=== PATIENT | male | born 1975 | race Hispanic/Latino ===

== ENCOUNTER 2025-01-24 18:19 | Inpatient (IN) | payer SELFPAY ==
[~2025-01-24] VITALS: Ht 157.5 cm; Wt 55.8 kg
--- NOTE | 2025-01-24 19:28 | NUR ---
ASSUMED PT CARE
--- NOTE | 2025-01-24 19:58 | ERN ---
General Chief Complaint: Weakness Stated Complaint: WEAKNESS Time Seen by MD: 19:11 Source: patient, family History of Present Illness Initial Comments Patient is a 49-year-old male coming in complaining of generalized body weakness and anorexia fever and chills. Per family member and patient he had an appendectomy three weeks ago and since then he has been having "complications". Allergies: Coded Allergies: No Known Drug Allergies (Unverified Allergy, Unknown, 01/24/25) Past Medical History Past Medical History: No Pertinent History Past Surgical History: Appendectomy, Cholecystectomy ROS Dictation CONSTITUTIONAL: chills, fever, weakness, no diaphoresis, malaise. HEAD/FACE: No signs of trauma. EENT: No eye pain, no blurred vision, no tearing, no double vision, no ear pain, no ear discharge, no nose pain, no nasal congestion, no throat pain, no throat swelling, no mouth pain. RESPIRATORY: No cough, no orthopnea, no SOB, no stridor, no wheezing. CARDIOVASCULAR: No chest pain, no edema, no palpitations, no syncope. GASTROINTESTINAL/ABDOMINAL: No abdominal pain, no constipation, no diarrhea, no nausea, no vomiting. GENITOURINARY: No abnormal discharge, no dysuria, no frequent urination, no hematuria. No complaints of pain in the genitals. MUSCULOSKELETAL: No back pain, no gout, no joint pain, no joint swelling, no muscle pain, no muscle stiffness, no neck pain. INTEGUMENTARY: No change in color, no change in hair/nails, no dryness, no lesion, no lumps, no rash. NEUROLOGICAL/PSYCH: No anxiety, not depressed, no emotional problem, no headache, no numbness, no pre-existing deficit, no history of seizures, no tremors, no weakness. HEMATOLOGIC/LYMPHATIC: Not anemic, no history of blood clots, no apparent bleeding, no bruising, glands not swollen. All Systems Negative, Except as Noted. Physical Exam Physical Exam Dictation VITAL SIGNS: Reviewed. GENERAL APPEARANCE: Alert, oriented x3, no acute distress. HEAD AND FACE: Non-traumatic. EYES: PERRL, pink conjunctivas, eyelid no trauma, anterior chamber clear. EARS: Pinnas intact and no signs of trauma or erythema. Ear canals clear and no discharge. TMs no erythema. NOSE: No discharge, no bleeding. OROPHARYNX: Mouth normal, teeth no caries, tongue pink. Pharynx clear, no er ythema. Tonsils no exudates, no abscesses noted. Mucous membrane moist. NECK: Supple, non-tender, no thyromegaly, no masses, no JVD, no bruits. BREAST: Deferred. CHEST: No tenderness, no crepitus, no paradoxical movement, no retractions. LUNGS: Clear, well-ventilated, symmetric, no rales, no wheezing, no rhonchi, no stridor, good breath sounds bilaterally. HEART: Regular rate, regular rhythm, no murmur, no gallops. VASCULAR: No peripheral edema. ABDOMEN: Soft, positive bowel sounds, nondistended, no guarding, nontender, no rebound, no masses no hepatomegaly, no splenomegaly, no Dial's sign, no hernias. RECTAL: Deferred. GENITAL: Deferred. NEUROLOGICAL: Normal speech, gross motor function intact, gross sensory function intact. MUSCULOSKELETAL: Neck nontender, full range of motion, back nontender, full range of motion. EXTREMITIES: Nontender, full range of motion. SKIN: Color pink, dry, no turgor, no rash, no lacerations, no abrasions, no contusions. LYMPHATICS: Deferred. Results Laboratory and Microbiology Lab and Micro Result Laboratory Tests Test 01/24/25 19:52 01/24/25 20:10 01/24/25 21:40 White Blood Count 2.9 K/uL (4.8-10.8) L Red Blood Count 2.71 MIL/uL (4.50-6.20) L Hemoglobin 8.1 g/dL (14.0-18.0) L Hematocrit 24.1 % (42-54) L Mean Corpuscular Volume 88.9 fL (79-99) Mean Corpuscular Hemoglobin 29.9 pg (27.0-33.0) Mean Corpuscular Hemoglobin Concent 33.6 g/dL (32.0-36.0) Red Cell Distribution Width 14.5 % (11.0-15.5) Platelet Count 156 K/uL (130-400) Mean Platelet Volume 11.7 fL (7.5-10.5) H Immature Granulocyte % (Auto) 1.8 % (0-1) H Neutrophils (%) (Auto) 74.3 % (40.0-77.0) Lymphocytes (%) (Auto) 16.5 % (21.0-51.0) L Monocytes (%) (Auto) 7.0 % (3.0-13.0) Eosinophils (%) (Auto) 0.0 % (0.0-8.0) Basophils (%) (Auto) 0.4 % (0.0-5.0) Neutrophils # (Auto) 2.1 K/uL (1.8-7.7) Lymphocytes # (Auto) 0.5 K/uL (1.0-4.8) L Monocytes # (Auto) 0.2 K/uL (0.1-1.0) Eosinophils # (Auto) 0.00 K/uL (0.00-0.70) Basophils # (Auto) 0.01 K/uL (0.00-0.20) Absolute Immature Granulocyte (auto 0.05 K/uL (0-1) Segmented Neutrophils % 81 % (40-70) H Band Neutrophils % 8 % (0-2) H Lymphocytes % (Manual) 8 % (22-44) L Monocytes % (Manual) 3 % (2-9) Nucleated Red Blood Cells 0.0 % (0.0-0.19) Differential Comment MANUAL DIFFERENTIAL White Cell Morphology Comment CONSISTENT W/DIFF Platelet Morphology Comment ADEQUATE Red Blood Cell Morphology ANISO 1+ Sodium Level 132 mmol/L (136-145) L Potassium Level 4.7 mmol/L (3.5-5.1) Chloride Level 101 mmol/L (101-111) Carbon Dioxide Level 23 mmol/L (21-32) Blood Urea Nitrogen 46 mg/dL (7-18) H Creatinine 1.0 mg/dL (0.5-1.3) Glomerular Filtration Rate Calc 92 mL/min (>90) Random Glucose 86 mg/dL (70-105) Lactic Acid Level 1.5 mmol/L (0.8-2.5) Total Calcium 7.4 mg/dL (8.5-10.1) L Total Creatine Kinase 82 U/L (21-232) Troponin I High Sensitivity 3121 ng/L (4-75) *H 3099 ng/L (4-75) *H B-Type Natriuretic Peptide 61 pg/mL (0-100) Group A Streptococcus Rapid negative (NEGATIVE) Influenza Type A Antigen Negative For Type A Influenza Type B Antigen Negative For Type B SARS-CoV-2, RNA, NAAT NEGATIVE SARS CoV-2 Labs Reviewed?: Yes EKG/XRAY/US/CT/MRI EKG Comment 01/24/2025 time 9:40 p.m. Ventricular rate 66 Sinus rhythm DE [address] wave elevation or depression CT Scan Comment [address] [place] [address] IMAGING REPORT Signed PATIENT: ABEL LEVY MR#: [id number] : 1975 SEX: M AGE: 49 LOCATION: [facility] ORDER 45 STATUS: [facility] REPORT#: [id number] SERVICE 44 REASON: abd pain , gi bleed ORDERING PHYSICIAN: GORAN HERNANDEZ MD PROCEDURE: ABD PEL W - CT ABDOMEN/PELVIS W/CONTRAST EXAM: CT Abdomen and Pelvis with IV contrast CLINICAL HISTORY: Abdominal pain. GI bleed. TECHNIQUE: Thin collimated axial CT images of the abdomen and pelvis were obtained, with sagittal and coronal reformatted images also submitted. A CT scan is done according to ALARA (As Low As Reasonably Achievable). CONTRAST: Omnipaque 350 COMPARISON: None. FINDINGS: Diffuse groundglass opacities in the bilateral lung bases. Mild peripancreatic fatty stranding. A small amount of fluid with mild fat stranding in the left upper quadrant at the inferior aspect of the spleen. No focal abnormality within the liver, spleen, adrenals, or kidneys. The gallbladder is not visualized and is likely surgically removed. There is no obvious bowel wall thickening. Bowel loops are normal in caliber without evidence of obstruction or ileus. The appendix is normal. There is no abnormality within the urinary bladder. Unremarkable reproductive organs. Abdominal and pelvic vessels are patent. No lymphadenopathy. There is no acute osseous abnormality. Mild lumbar spondylosis. IMPRESSIONS: Mild peripancreatic fat stranding. A small amount of fluid with mild fat stranding in the left upper quadrant at the inferior aspect of the spleen. The features concerning for acute interstitial pancreatitis. Recommend serum amylase and lipase evaluation. No other significant abnormality is visualized in the abdomen and pelvis. Groundglass opacities in the bilateral lung bases. /[place] DICTATED BY: BARRIE HERNANDEZ Jr., MD DATE: 01/25/25103 ELECTRONICALLY SIGNED BY: BARRIE HERNANDEZ Jr., MD DATE: 01/25/25103 [place] [address] [place] [address] IMAGING REPORT Signed PATIENT: ABEL LEVY MR#: [id number] : 1975 SEX: M AGE: 49 LOCATION: [facility] ORDER 10 STATUS: REG REPORT#: [id number] SERVICE 09 REASON: sob ORDERING PHYSICIAN: GORAN HERNANDEZ MD PROCEDURE: CHEST WO - CT CHEST W/O CONTRAST EXAM: CT Chest without IV contrast CLINICAL HISTORY: Shortness of breath. TECHNIQUE: Thin-section axial CT through the thorax without intravenous contrast. Coronal, sagittal, and MIP reformation were generated on the same workstation. CT scan done according to ALARA (As Low as Reasonably Achievable). CONTRAST USED: None. COMPARISON: None provided. FINDINGS: Severe diffuse airspace disease, air bronchogram, and smooth interstitial thickening bilaterally, compatible with pneumonia and pulmonary edema. No pleural effusions. No pneumothorax. No pericardial effusion. The heart size is within normal limits. No axillary, supraclavicular, or mediastinal lymphadenopathy. No focal thyroid abnormality. Limited views of the upper abdomen demonstrate no abnormality. No acute or suspicious osseous abnormality. IMPRESSION: Severe diffuse airspace disease, air bronchogram, and smooth interstitial thickening bilaterally, compatible with pneumonia and pulmonary edema. There is a possibility of atypical viral pneumonia. Clinical correlation and further evaluation, and follow-up are suggested. /[place] DICTATED BY: BARRIE HERNANDEZ Jr., MD DATE: 01/25/25115 ELECTRONICALLY SIGNED BY: BARRIE HERNANDEZ Jr., MD DATE: 01/25/25115 MDM MDM: Differential diagnosis: STEMI, NSTEMI, pancreatitis,pneumonia Rationale: Tests considered and ordered secondary to shared decision making include: Previous outside records reviewed: Old ER visits. Risk of complication and/or morbidity or mortality of patient management: None Medications-Per medication reconciliation Need for hospitalization: Patient does meet criteria for hospitalization. Need for emergency major/minor surgery: No There are no social concerns with this patient. Prescription drug management Prescriptions will include symptomatic care Patient's prior external medical records from other ER visits were reviewed by me as indicated. Prior testing and results from previous visits were reviewed. Prior tests were taken into account with medical decision making and resource utilization, independent historian/historians were used to obtain complete medical history. I independently interpreted the test that were performed, results were reviewed by me and considered findings on radiology if ordered. Medical management and examination interpretation discussions were had by me with other qualified healthcare professionals as indicated for the patient's care. Patient will be admitted under the care of hospitalist group ED Course Orders Procedure Category Date Status Time Cbc With Differential LAB 01/24/25 Complete 19:16 Blood Cult GÉNESIS 01/24/25 In Process 19:16 Urinalysis Profile LAB 01/24/25 Logged 19:16 Culture Urine GÉNESIS 01/24/25 Logged 19:16 0.9%Nacl 1000ml (Ns PHA 01/24/25 Complete 1000ml) 19:30 Creatine Kinase, Total LAB 01/24/25 Complete 19:16 Troponin I High LAB 01/24/25 Complete Sensitivity 19:16 Lactic Acid LAB 01/24/25 Complete 19:16 Basic Metabolic Panel LAB 01/24/25 Complete 19:16 Covid Rna Naat LAB 01/24/25 Complete 19:16 Influenza Type A & B, LAB 01/24/25 Complete Rapid 19:16 Rapid (Group A Strep) LAB 01/24/25 Complete 20:16 Manual Differential LAB 01/24/25 Complete 19:52 Troponin I High LAB 01/24/25 Complete Sensitivity 21:31 Aspirin 325mg Ec Tab PHA 01/24/25 Complete (Aspirin 325mg Ec T 22:00 Occult Blood Stool LAB 01/24/25 Logged Single Only 21:31 12 Lead Ekg Tracing- EKG 01/24/25 Logged Technical 21:31 B-Type Natriuretic LAB 01/24/25 Complete Peptide 21:32 Ct Abdomen/Pelvis CT 01/24/25 Resulted W/Contrast 21:45 Iohexol (Omnipaque) PHA 01/24/25 Complete 22:42 Ct Chest W/O Contrast CT 01/24/25 Resulted 23:10 Lipase LAB 01/25/25 Logged 00:13 Initiate Heparin THANG 01/25/25 In Process Treatment Pro 00:17 Cbc With Differential LAB 01/26/25 Verified 04:00 Cbc With Differential LAB 01/29/25 Verified 04:00 Cbc With Differential LAB 02/01/25 Verified 04:00 Heparin 5,000 Unit PHA 01/25/25 In Process Vial (Heparin 5,000 U 01:30 Heparin 25,000 PHA 01/25/25 In Process Units/250ml D5w 01:30 Heparin Protocol CPOE 01/25/25 Transmitted Monitoring 00:17 Partial LAB 01/25/25 Logged Thromboplastin Time 00:19 Ceftriaxone 1g Vial PHA 01/25/25 In Process (Rocephine 1g Inj) 00:30 Azithromycin 500mg+Ns PHA 01/25/25 In Process 250ml (Azithromyci 00:30 Current Medications Medications (Trade) Dose Ordered Sig/Braulio Route PRN Reason Start Time Stop Time Status Last Admin Dose Admin Aspirin (Aspirin 325mg Ec Tab) 325 mg ONCE ONCE PO 01/24/25 22:00 01/24/25 22:01 DC 01/24/25 22:02 Azithromycin 250 ml @ 250 mls/hr Q24H IVPB 01/25/25 00:30 02/04/25 00:29 Ceftriaxone Sodium (ROCEphine 1G INJ) 1 gm ONCE ONCE IVPB 01/25/25 00:30 01/25/25 00:31 Heparin Sodium (Porcine) (HEParin 5,000 UNIT VIAL) *calculation based on ACTUAL B... AD PRN IV HEPARIN PROTOCOL 01/25/25 01:30 02/24/25 01:29 Heparin Sodium/ Dextrose 250 ml @ 0 mls/hr Q6H IV 01/25/25 01:30 02/24/25 01:29 Iohexol (Omnipaque) 35,000 mg STK-MED ONCE IV 01/24/25 22:42 01/24/25 22:42 DC Sodium Chloride 1,632 ml @ 544 mls/hr ONCE ONCE IV 01/24/25 19:30 01/24/25 22:29 DC 01/24/25 20:01 Vital Signs Date Time Temp Pulse Resp B/P (MAP) Pulse Ox O2 Delivery O2 Flow Rate FiO2 01/24/25 21:21 98.8 64 18 94/62 99 Room Air* 0 21 01/24/25 18:21 97.9 85 18 81/56 99 Room Air 2.0 DX & DISP Disposition: Inpatient Decision to Admit Time: 00:17 Departure Impression: Primary Impression: NSTEMI (non-ST elevated myocardial infarction) Additional Impressions: Failure to thrive, Pancreatitis, Pneumonia Condition: Stable Referrals: SELF,REFERRAL (PCP) GORAN HERNANDEZ MD Jan 24, 2025 19:58
[2025-01-24] MEDS: 0.9%NACL 1000ML 1,632 ML IV ONE (20:01)
[2025-01-24 20:34] LABS: IMMATURE GRANULOCYTE ABSOLUTE 0.05 K/uL (0-1); NUCLEATED RED BLOOD CELLS 0.0 % (0.0-0.19); PLATELET COUNT (AUTO) 156 K/uL (130-400); RED BLOOD CELL COUNT(AUTO) 2.71 MIL/uL (4.50-6.20); RED CELL DISTRIBUTION WIDTH 14.5 % (11.0-15.5); WHITE BLOOD COUNT (AUTO) 2.9 K/uL (4.8-10.8)
[2025-01-24 20:35] LABS: SARS-CoV-2, RNA, NAAT NEGATIVE SARS CoV-2 (NEGATIVE)
[2025-01-24 20:40] LABS: INFLUENZA TYPE A Negative For Type A (NEGATIVE); INFLUENZA TYPE B Negative For Type B (NEGATIVE)
[2025-01-24 20:59] LABS: CREATININE 1.0 mg/dL (0.5-1.3); GLOMERULAR FILTR. RATE CALC 92.0 mL/min (>90); GLUCOSE,RANDOM 86.0 mg/dL (70-105); SODIUM SERUM 132.0 mmol/L (136-145); UREA NITROGEN, BLOOD 46.0 mg/dL (7-18)
[2025-01-24 21:11] LABS: CREATINE KINASE, TOTAL 82.0 U/L (21-232)
[2025-01-24 21:43] LABS: BAND NEUTROPHILS % (MANUAL) 8 % (0-2); LYMPHOCYTES % (MANUAL) 8 % (22-44); MAN.DIFF COMMENT-IMPRESSION MANUAL DIFFERENTIAL; MONOCYTES % (MANUAL) 3 % (2-9); PLATELET MORPHOLOGY COMMENT ADEQUATE; SEGMENTED NEUTROPHILS % 81 % (40-70); WBC MORPHOLOGY CONSISTENT W/DIFF
[2025-01-24] MEDS: ASPIRIN 325MG EC TAB PO ONE (22:02)
[2025-01-24] MEDS ORDERED: IOHEXOL 350 MG/ML 100ML INFUS..BTL IV ONE (22:42)
[2025-01-25] VITALS (15 sets, daily range): BP systolic 87–112; BP diastolic 52–63; PULSE 59–72; RESP 16–28; TEMP 97.3–98.5; O2SAT 87–95
--- NOTE | 2025-01-25 | HMCIMG ---
EXAM: CT Abdomen and Pelvis with IV contrast CLINICAL HISTORY: Abdominal pain. GI bleed. TECHNIQUE: Thin collimated axial CT images of the abdomen and pelvis were obtained, with sagittal and coronal reformatted images also submitted. A CT scan is done according to ALARA (As Low As Reasonably Achievable). CONTRAST: Omnipaque 350 COMPARISON: None. FINDINGS: Diffuse groundglass opacities in the bilateral lung bases. Mild peripancreatic fatty stranding. A small amount of fluid with mild fat stranding in the left upper quadrant at the inferior aspect of the spleen. No focal abnormality within the liver, spleen, adrenals, or kidneys. The gallbladder is not visualized and is likely surgically removed. There is no obvious bowel wall thickening. Bowel loops are normal in caliber without evidence of obstruction or ileus. The appendix is normal. There is no abnormality within the urinary bladder. Unremarkable reproductive organs. Abdominal and pelvic vessels are patent. No lymphadenopathy. There is no acute osseous abnormality. Mild lumbar spondylosis. IMPRESSIONS: Mild peripancreatic fat stranding. A small amount of fluid with mild fat stranding in the left upper quadrant at the inferior aspect of the spleen. The features concerning for acute interstitial pancreatitis. Recommend serum amylase and lipase evaluation. No other significant abnormality is visualized in the abdomen and pelvis. Groundglass opacities in the bilateral lung bases. /[place]aura
--- NOTE | 2025-01-25 00:17 | HMCIMG ---
EXAM: CT Chest without IV contrast CLINICAL HISTORY: Shortness of breath. TECHNIQUE: Thin-section axial CT through the thorax without intravenous contrast. Coronal, sagittal, and MIP reformation were generated on the same workstation. CT scan done according to ALARA (As Low as Reasonably Achievable). CONTRAST USED: None. COMPARISON: None provided. FINDINGS: Severe diffuse airspace disease, air bronchogram, and smooth interstitial thickening bilaterally, compatible with pneumonia and pulmonary edema. No pleural effusions. No pneumothorax. No pericardial effusion. The heart size is within normal limits. No axillary, supraclavicular, or mediastinal lymphadenopathy. No focal thyroid abnormality. Limited views of the upper abdomen demonstrate no abnormality. No acute or suspicious osseous abnormality. IMPRESSION: Severe diffuse airspace disease, air bronchogram, and smooth interstitial thickening bilaterally, compatible with pneumonia and pulmonary edema. There is a possibility of atypical viral pneumonia. Clinical correlation and further evaluation, and follow-up are suggested. /[place]
[2025-01-25] MEDS: AZITHROMYCIN 500MG+NS 250ML 250 ML IVPB SCH (00:32)
[2025-01-25 00:55] LABS: APPEARANCE,URINE CLEAR (CLEAR); GLUCOSE, URINE (UA) NEGATIVE (NEGATIVE); LEUKOCYTE ESTERASE ,URINE NEGATIVE Leu/uL (NEGATIVE); NITRATE,URINE NEGATIVE (NEGATIVE); OCCULT BLOOD,URINE SMALL (NEGATIVE)
[2025-01-25 00:56] LABS: ADD UA MICROSCOPIC YES
--- NOTE | 2025-01-25 02:31 | HP ---
[facility] HISTORY AND PHYSICAL Date of Service: Jan 25, 2025 Time of Service: 02:31 Attending/supervising physicians: Dr. Bowie and Dr. Wick HISTORY OF PRESENT ILLNESS: Mr Bhardwaj is a 49-year-old male not pertinent history who is presented with [facility] [place] of with anorexia, fever, chills, generalized body weakness. The patient had an appendectomy three weeks ago and since then he reports he has been having complications. VS: HR 85 bpm, RR 18 bpm, BP 81/56, 99% RA, 97.9 F. Labs: Chemistry: WBC 2.9, RBC 2.71, Hgb 8.1, Hct 24.1, MPV 11.7, Urine: Specific Madison 1.038, Protein 10, Occult Blood Small, UA: Negative Nitrate, Negative Leukocyte Est, UA: RBC 6- 10, WBC 2-5, Coagulation: APTT 40.8, Chest CT: Severe diffuse airspace disease, air bronchogram, and smooth interstitial thickening bilaterally, compatible with pneumonia and pulmonary edema. There is a possibility of atypical viral pneumonia. Clinical correlation and further evaluation, and follow-up are suggested. Abdomen/Pelvis CT: Mild peripancreatic fat stranding. A small amount of fluid with mild fat stranding in the left upper quadrant at the inferior aspect of the spleen. The features concerning for acute interstitial pancreatitis. Recommend serum amylase and lipase evaluation. No other significant abnormality is visualized in the abdomen and pelvis. Groundglass opacities in the bilateral lung bases. EKG: SR, heart rate 66 bpm. In ED the patient received NS 30 mL/kilos, [id number] mg, Rocephin1 g, and was started on heparin drip. ED provider request patient be admitted with the diagnosis of NSTEMI, failure to thrive, pancreatitis, and pneumonia. I assessed the patient at bedside in room number ED 10. Son was at bedside. The patient appeared chronically ill, weak, comfortable, breathing was even, unlabored, in no distress. I informed the son and patient of labs, diagnostics, and plan of care. He verbalized understanding and are in agreement with the plan. Plan and assessment are listed below. REVIEW OF SYSTEMS 12-point ROS reviewed with the patient. All pertinent positives mentioned above. Otherwise negative, noncontributory, non-pertinent. PAST MEDICAL HISTORY: As mentioned above PAST SURGICAL HISTORY: Appendectomy,cholecystectomy PAST SOCIAL HISTORY: Patient denies alcohol, tobacco, illicit drug use. FAMILY HISTORY: Noncontributory Coded Allergies: No Known Drug Allergies (Unverified Allergy, Unknown, 01/24/25) PHYSICAL EXAM GENERAL APPEARANCE: The patient is chronically ill, weak, awake, alert, and oriented, in no acute cardiopulmonary distress. NEUROLOGICAL: Cranial nerves II-XII grossly intact. Motor is 5/5 in bilateral upper and lower extremities proximal to distal. No sensory deficits. HEENT: Face is symmetric. Pupils are equal and reactive. Extraocular movements are intact. NECK: Supple. No JVD. No thyromegaly. No submental, submandibular, pre- /postauricular, occipital or supraclavicular lymphadenopathy. CHEST: Normal chest expansion. No Telemetry. LUNGS: Absence of any rales, rhonchi or any wheezing. CARDIOVASCULAR: Regular. S1 and S2 normal. No appreciable rubs, murmurs or gallops. ABDOMEN: Soft, nontender, and nondistended. There is no rebound, voluntary guarding, or rigidity. : Deferred. No [place]. EXTREMITIES: Non-edematous and not cyanotic. No clubbing. Good capillary refill. SKIN: No skin breakdown. Vital Sign (Last 24 Hours) 01/24/25 21:21 Temp 98.8 Pulse 64 Resp 18 B/P (MAP) 94/62 Pulse Ox 99 O2 Delivery Room Air* O2 Flow Rate 0 FiO2 21 LABS: Laboratory: Test 01/25/25 00:48 01/25/25 00:25 01/24/25 21:40 01/24/25 20:10 Range/Units Urine Color YELLOW YELLOW Urine Appearance CLEAR CLEAR Urine pH 6.0 5.0-8.0 Urine Specific Madison 1.038 H 1.001-1.031 Urine Protein 10 H NEGATIVE mg/dL Urine Glucose (UA) NEGATIVE NEGATIVE mg/dL Urine Ketones NEGATIVE NEGATIVE mg/dL Urine Occult Blood SMALL H NEGATIVE Urine Nitrate NEGATIVE NEGATIVE Urine Bilirubin NEGATIVE NEGATIVE mg/dL Urine Urobilinogen 0.2 0.2-1.0 mg/dL Urine Leukocyte Esterase NEGATIVE NEGATIVE Kerrie/uL Urine RBC 6-10 H 0-1 /HPF Urine WBC 2-5 H 0-1 /HPF Urine Bacteria RARE None Seen /HPF Activated Partial Thromboplast Time 40.8 H 26.3-35.5 SEC Troponin I High Sensitivity 3099 *H 4-75 ng/L Lipase 435 H 16-77 U/L Influenza Type A Antigen Negative For Type A NEGATIVE Influenza Type B Antigen Negative For Type B NEGATIVE SARS-CoV-2, RNA, NAAT NEGATIVE SARS CoV-2 NEGATIVE Test 01/24/25 19:52 Range/Units White Blood Count 2.9 L 4.8-10.8 K/uL Red Blood Count 2.71 L 4.50-6.20 MIL/uL Hemoglobin 8.1 L 14.0-18.0 g/dL Hematocrit 24.1 L 42-54 % Mean Corpuscular Volume 88.9 79-99 fL Mean Corpuscular Hemoglobin 29.9 27.0-33.0 pg Mean Corpuscular Hemoglobin Concent 33.6 32.0-36.0 g/dL Red Cell Distribution Width 14.5 11.0-15.5 % Platelet Count 156 130-400 K/uL Mean Platelet Volume 11.7 H 7.5-10.5 fL Immature Granulocyte % (Auto) 1.8 H 0-1 % Neutrophils (%) (Auto) 74.3 40.0-77.0 % Lymphocytes (%) (Auto) 16.5 L 21.0-51.0 % Monocytes (%) (Auto) 7.0 3.0-13.0 % Eosinophils (%) (Auto) 0.0 0.0-8.0 % Basophils (%) (Auto) 0.4 0.0-5.0 % Neutrophils # (Auto) 2.1 1.8-7.7 K/uL Lymphocytes # (Auto) 0.5 L 1.0-4.8 K/uL Monocytes # (Auto) 0.2 0.1-1.0 K/uL Eosinophils # (Auto) 0.00 0.00-0.70 K/uL Basophils # (Auto) 0.01 0.00-0.20 K/uL Absolute Immature Granulocyte (auto 0.05 0-1 K/uL Segmented Neutrophils % 81 H 40-70 % Band Neutrophils % 8 H 0-2 % Lymphocytes % (Manual) 8 L 22-44 % Monocytes % (Manual) 3 2-9 % Nucleated Red Blood Cells 0.0 0.0-0.19 % Differential Comment MANUAL DIFFERENTIAL White Cell Morphology Comment CONSISTENT W/DIFF Platelet Morphology Comment ADEQUATE Red Blood Cell Morphology ANISO 1+ Sodium Level 132 L 136-145 mmol/L Potassium Level 4.7 3.5-5.1 mmol/L Chloride Level 101 101-111 mmol/L Carbon Dioxide Level 23 21-32 mmol/L Blood Urea Nitrogen 46 H 7-18 mg/dL Creatinine 1.0 0.5-1.3 mg/dL Glomerular Filtration Rate Calc 92 >90 mL/min Random Glucose 86 70-105 mg/dL Lactic Acid Level 1.5 0.8-2.5 mmol/L Total Calcium 7.4 L 8.5-10.1 mg/dL Total Creatine Kinase 82 21-232 U/L B-Type Natriuretic Peptide 61 0-100 pg/mL Group A Streptococcus Rapid negative NEGATIVE Current Medications Medications (Trade) Dose Ordered Sig/Braulio Route PRN Reason Start Time Stop Time Status Last Admin Dose Admin Azithromycin 250 ml @ 250 mls/hr Q24H IVPB 01/25/25 00:30 02/04/25 00:29 01/25/25 00:32 250 MLS/HR Heparin Sodium (Porcine) (HEParin 5,000 UNIT VIAL) *calculation based on ACTUAL B... AD PRN IV HEPARIN PROTOCOL 01/25/25 01:30 02/24/25 01:29 01/25/25 00:33 17 UNIT Heparin Sodium/ Dextrose 250 ml @ 0 mls/hr Q6H IV 01/25/25 01:30 02/24/25 01:29 01/25/25 00:50 9 MLS/HR DIAGNOSTICS / RADIOLOGY: [ ] ASSESSMENT: Severe sepsis, POA without septic shock Hypotension, responsive to midodrine and fluid bolus s/p recent appendicitis 3 weeks ago, POA Acute pancreatitis, POA NSTEMI, POA Pancytopenia, POA Pneumonia, POA Hyponatremia, POA Transaminitis, POA Frailty/debility/ Failure to thrive/GBW, POA PLAN: Admit patient to PCCU with telemetry monitoring. Start midodrine 10 mg p.o. t.i.d.. Continue heparin IV drip. Aspirin 81 mg p.o. daily. Atorvastatin 40 mg p.o. daily. NS at 75 mL an hour. Zithromax IV and Rocephin IV. Troponin levels and EKGs series. Cardiology consult in the a.m. 2D echo in a.m. Nitroglycerin as needed for chest pain. Strict I&Os. Monitor respirations status. Oxygen as needed to keep SpO2 equal to greater than 92. P.r.n. medications for: Pain management, fever, hypertension, nausea, vomiting, and constipation Glucose checks a.c. and HS with insulin regular sliding scale coverage as n eeded. Blood pressure checks every4 hours and as needed. Reconcile home medications once available. Monitor renal and liver function. Monitor electrolytes and treat accordingly. A.m. labs. GI and DVT prophylaxis. Further plan/orders per hospitalization course. ADVANCED CARE PLANNING 1. Which of the following were discussed? Hospice Care - No Therapeutic options - Yes Advance Directives - Yes Other discussions - 2. Discussed with who? The patient 3. Voluntary nature of this service was explained to the patient? Yes 4. Amount of time spent - __ over 35 minutes 5. Reviewed by Physician? (if this service was performed by SPENCER) Yes ATTESTATION BY PHYSICIAN I have seen and examined the patient. I reviewed the documentation, medical decision making, and treatment plan as noted by the SPENCER above. I agree with the findings and plan of care. AGNES MAYO [facility] Jan 25, 2025 02:31
[2025-01-25] MEDS: 0.9%NACL 1000ML 1,000 ML IV SCH (02:50)
--- NOTE | 2025-01-25 05:33 | EKG ---
[facility] Test Date: 2025-01-24 Test Time: 21:40:41 Pat Name: ABEL LEVY Department: EDHIP Room: 223 Gender: M [facility] Attendant: TJ : 1975 Requested By: GORAN HERNANDEZ Order Number: [id number] Reading MD: Dylan Guzman Measurements Intervals [place] Rate: 66 P: 55 [place]: 180 QRS: 52 QRSD: 76 T: 60 QT: 448 QTc: 471 Interpretive Statements Sinus rhythm No previous ECG available for comparison Electronically Signed On 01-26-2025 17:29:58 CDT by Dylan Guzman Please click the below link to view image of tracing.
[2025-01-25] MEDS: ASPIRIN 81MG CHEW TAB PO SCH (07:46)
[2025-01-25 07:49] LABS: NUCLEATED RED BLOOD CELLS 0.0 % (0.0-0.19); PLATELET COUNT (AUTO) 178.0 K/uL (130-400); RED BLOOD CELL COUNT(AUTO) 2.98 MIL/uL (4.50-6.20); RED CELL DISTRIBUTION WIDTH 14.7 % (11.0-15.5); WHITE BLOOD COUNT (AUTO) 2.4 K/uL (4.8-10.8)
[2025-01-25 08:09] LABS: ASPARTATE AMINOTRANSFERASE 113.0 U/L (10-37); CREATININE 0.7 mg/dL (0.5-1.3); GLOMERULAR FILTR. RATE CALC 112.0 mL/min (>90); GLUCOSE,RANDOM 68.0 mg/dL (70-105); PHOSPHORUS 3.0 mg/dL (2.5-4.9); SODIUM SERUM 131.0 mmol/L (136-145); TOTAL PROTEIN, SERUM 5.9 g/dL (6.0-8.3); UREA NITROGEN, BLOOD 31.0 mg/dL (7-18)
--- NOTE | 2025-01-25 08:26 | NUR ---
DR MACHADO AT BEDSIDE
[2025-01-25] MEDS ORDERED: LACTULOSE 20 GM/30 ML UDCUP PO PRN (09:00)
[2025-01-25] MEDS ORDERED: ALBUTEROL 0.083% 2.5 MG/3 ML INH IH PRN (09:00)
--- NOTE | 2025-01-25 09:50 | NUR ---
DR Krista BARTLETT AT BEDSIDE
--- NOTE | 2025-01-25 10:50 | CONS ---
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 His history is pertinent for his right inguinal hernia repair 12/26/2024 at a hospital in [facility]. He was discharged after a 1 day hospitalization. He was feeling weak and apparently fell when he tried to get out of bed and had tonic-clonic movement of the left upper extremity. He was taken to a hospital in [facility] on approximately 01/09/2025 and was hospitalized there for 4-5 days. He was then sent to another hospital in [facility] for CT scan of the brain and was told that he was found to have an illness from eating raw pork meat (likely cysticercosis), he does not recall undergoing any treatment and was subsequently discharged home. He has had a three-week history of anorexia, generalized body weakness, body aches and dysphagia and was brought to the ER for further evaluation. In the emergency department, he was found to be hypotensive with a blood pressure of 75/56, he was afebrile, labs were remarkable for a WBC of 2.9, hemoglobin 8.1, hematocrit of 24.1 and a platelet count of 156, sodium 132, potassium 4.7, BUN 46 and creatinine of 1.0. Lactic acid of 1.5. CK of 82 and a high sensitivity cardiac troponin of 3121, with repeat of 3099 and 3598. The patient was treated with aspirin 325 male g x1 and was initiated on IV heparin drip and cardiology consult was requested. He was also treated with 1.6 L of IV fluids bolus and 1 dose of midodrine 5 mg p.o.. The patient denies any prior history of [place], coronary artery disease, diabetes, CVA or any bleeding issues. He does report a 10 lb weight loss over the last month. He offers no complaints of chest pain, pressure, dyspnea, cough or phlegm production. He does report orthostatic dizziness and generalized weakness. An EKG on admission demonstrates a normal sinus rhythm, no ischemic changes or pathologic Q-waves, and a heart rate of 66 beats per minute. 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 He lives with his mother in [place]. He does have permission to work in the [place] and works at a [employer] Habits: Non smoker. Denies alcohol consumption. Denies illicit drug use Home Meds: None Review of Systems: CONST: Positive for 10 lb weight loss, generalized weakness, body aches, no fever, no chills. EYES: No recent vision problems. ENT: No congestion, ear pain, or sore throat. C/V: No chest pain, palpitations. Positive for lower extremity edema. RESP: No cough, congestion, wheezing or shortness of breath. GI: No abdominal pain, nausea, vomiting, constipation, or diarrhea. : Positive for dysphagia, positive for nausea with small amounts of food. No incontinence or dysuria. SKIN: No rash. NEURO: No headache, focal numbness or weakness, dizziness PSYCH: No depression or anxiety. HEME: No abnormal bruising or bleeding. LYMPH: No swollen glands. Physical Examination: GENERAL: Thin, weak and weak to communicate. Cachectic. HEAD: Normal with no signs of head trauma. EYES: PERRLA, EOMI, conjunctiva and sclera normal. ENT: Hearing grossly intact, smooth, red smooth tongue with white patches noted along the lateral edges. NECK: Supple without JVD. There is no tenderness, lymphadenopathy, or masses. No thyromegaly. Normal carotid upstrokes without bruits. LUNGS: Transmitted breath sounds at the right base and crackles at the left side. HEART: Normal rate and rhythm. Normal S1 and S2 without murmurs, gallop or rub. VASC: Peripheral pulses +2 bilaterally. Trace pedal edema ABD: Thin abdomen, Bowel sounds normal, soft, nontender, no masses, no organomegaly. No audible bruits. LYMPH: No lymphadenopathy noted. EXT: There is a healing wound to the right groin, no masses, no evidence of infection. Lower extremities demonstrate No clubbing, cyanosis, there is a trace of pedal edema. SKIN: Lower extremity areas of excoriation noted. NEURO: Awake, alert, and oriented x3. Generalized weakness noted but is able to move extremities with weakness Vital Signs (last 8hr) Date Time Temp Pulse Resp B/P (MAP) Pulse Ox O2 Delivery O2 Flow Rate FiO2 01/25/25 09:30 64 22 N/Cannula Low lpm 4.0 36 01/25/25 05:30 98.8 62 18 95/62 99 Nasal Cannula* 3 32 01/25/25 02:52 98.8 68 18 93/55 100 Nasal Cannula* 3 32 Laboratory: Hematology Labs: Test 01/25/25 07:34 01/24/25 19:52 Range/Units White Blood Count 2.4 L 4.8-10.8 K/uL Red Blood Count 2.98 L 4.50-6.20 MIL/uL Hemoglobin 9.0 L 14.0-18.0 g/dL Hematocrit 26.3 L 42-54 % Mean Corpuscular Volume 88.3 79-99 fL Mean Corpuscular Hemoglobin 30.2 27.0-33.0 pg Mean Corpuscular Hemoglobin Concent 34.2 32.0-36.0 g/dL Red Cell Distribution Width 14.7 11.0-15.5 % Platelet Count 178 130-400 K/uL Mean Platelet Volume 11.5 H 7.5-10.5 fL Nucleated Red Blood Cells 0.0 0.0-0.19 % Immature Granulocyte % (Auto) 1.8 H 0-1 % Neutrophils (%) (Auto) 74.3 40.0-77.0 % Lymphocytes (%) (Auto) 16.5 L 21.0-51.0 % Monocytes (%) (Auto) 7.0 3.0-13.0 % Eosinophils (%) (Auto) 0.0 0.0-8.0 % Basophils (%) (Auto) 0.4 0.0-5.0 % Neutrophils # (Auto) 2.1 1.8-7.7 K/uL Lymphocytes # (Auto) 0.5 L 1.0-4.8 K/uL Monocytes # (Auto) 0.2 0.1-1.0 K/uL Eosinophils # (Auto) 0.00 0.00-0.70 K/uL Basophils # (Auto) 0.01 0.00-0.20 K/uL Absolute Immature Granulocyte (auto 0.05 0-1 K/uL Segmented Neutrophils % 81 H 40-70 % Band Neutrophils % 8 H 0-2 % Lymphocytes % (Manual) 8 L 22-44 % Monocytes % (Manual) 3 2-9 % Differential Comment MANUAL DIFFERENTIAL White Cell Morphology Comment CONSISTENT W/DIFF Platelet Morphology Comment ADEQUATE Red Blood Cell Morphology ANISO 1+ Chemistry Labs: Test 01/25/25 07:34 01/24/25 21:40 01/24/25 19:52 Range/Units Sodium Level 131 L 136-145 mmol/L Potassium Level 4.4 3.5-5.1 mmol/L Chloride Level 103 101-111 mmol/L Carbon Dioxide Level 20 L 21-32 mmol/L Blood Urea Nitrogen 31 H 7-18 mg/dL Creatinine 0.7 0.5-1.3 mg/dL Glomerular Filtration Rate Calc 112 >90 mL/min Random Glucose 68 L 70-105 mg/dL Hemoglobin A1c 5.6 4.0-6.0 % Estimated Average Glucose (eAG) 114 70-126 mg/dL Total Calcium 7.5 L 8.5-10.1 mg/dL Phosphorus Level 3.0 2.5-4.9 mg/dL Magnesium Level 2.00 1.80-2.40 mg/dL Total Bilirubin 0.5 0.2-1.0 mg/dL Aspartate Amino Transf (AST/SGOT) 113 H 10-37 U/L Alanine Aminotransferase (ALT/SGPT) 50 12-78 U/L Alkaline Phosphatase 392 H 50-136 U/L Troponin I High Sensitivity 3598 *H 4-75 ng/L Total Protein 5.9 L 6.0-8.3 g/dL Albumin 1.3 L 3.5-5.0 g/dL Thyroid Stimulating Hormone (TSH) 1.51 0.36-3.74 uIU/mL Lipase 435 H 16-77 U/L Lactic Acid Level 1.5 0.8-2.5 mmol/L Total Creatine Kinase 82 21-232 U/L B-Type Natriuretic Peptide 61 0-100 pg/mL Coagulation Labs: Test 01/25/25 07:34 Range/Units Activated Partial Thromboplast Time 81.9 #H 26.3-35.5 SEC Diagnostics / Radiology: A CT scan of the abdomen and pelvis 01/24/2025 demonstrated mild peripancreatic fat stranding and a small amount of fluid with mild fat stranding in the left upper quadrant at the inferior aspect of the spleen. The liver, spleen, adrenal glands and kidneys were unremarkable. Likely surgically removed gallbladder, and no obvious bowel wall thickening. A CT scan of the chest 01/24/2025 demonstrated severe diffuse airspace disease, interstitial thickening bilaterally, and pulmonary vascular congestion and evidence of pneumonia. Impression and Plan: Troponin elevation, with no evidence of acute coronary syndrome, in the setting of hypotension and sepsis: No clinical evidence of acute coronary syndrome: -discontinue IV heparin due to concern for pancreatitis -continue aspirin -obtain 2D echocardiogram and follow-up on results Sepsis, likely related to pneumonia: Bilateral pneumonia by CT scan of the chest 01/24/2025: -chest x-ray pending -continue broad-spectrum antibiotics as per primary -extensive infiltrates in an asymptomatic patient (no cough, dyspnea, hypoxemia) is unusual -pulmonary consultation indicated Concern for pancreatitis with peripancreatic fat stranding on CT scan of the abdomen 01/24/2025: -discontinue IV heparin -continue supportive care and IV fluid hydration Anemia with neutropenia, uncertain etiology: -may be related to sepsis -trend CBC Volume depletion: -continue IV fluid hydration Dysphagia: -possible candidiasis -begin nystatin therapy PHYSICIAN ATTESTATION OF PHYSICIAN KNITTING MACHINE FIXER DOCUMENTATION: I attest that I was physically present for the galvin portions of the service and evaluated the patient with the Physician Pin Drafting Machine Operator, and I reviewed and discussed the case with the Physician Pin Drafting Machine Operator and made modifications to the Physician Pin Drafting Machine Operator's findings and plans of care as documented above KEON ALY Jan 25, 2025 10:50 KIIRT BARTLETT MD Jan 25, 2025 11:14
--- NOTE | 2025-01-25 10:53 | HMCIMG ---
EXAM: CR Chest, 1 View. CLINICAL HISTORY: evaluate for chf COMPARISON: Radiograph dated January 24, 2025 FINDINGS: Redemonstrated diffuse airspace disease throughout both lungs that may reflect pulmonary edema. No pleural effusion or pneumothorax. Heart size is within normal limits. Mild central pulmonary vascular congestion. IMPRESSION: 1. Diffuse airspace disease throughout both lungs, possibly representing pulmonary edema, with mild central pulmonary vascular congestion. /[place]
--- NOTE | 2025-01-25 11:00 | NUR ---
DR RENO AT BEDSIDE, MD UPDATED ON PT STATUS
[2025-01-25] MEDS ORDERED: VANCOMYCIN PROTOCOL PER PHARMACY IV SCH (11:30)
[2025-01-25] MEDS: 0.9%NACL 1000ML 1,000 ML IV ONE (11:36)
[2025-01-25 11:43] LABS: LDL DIRECT 55 mg/dL (0-99)
[2025-01-25] MEDS: [UNRECOGNIZED DRUG - OTHER] IV ONE (11:48)
[2025-01-25] MEDS: DEXTROSE 5 %-0.45 % NACL 1,000 ML IV SCH (11:53)
[2025-01-25] MEDS: VANCOMYCIN 1G/250ML KIT 250 ML IV ONE (11:54)
[2025-01-25 12:07] LABS: LACTATE DEHYDROGENASE 904.0 U/L (81-234)
[2025-01-25 12:23] LABS: % IRON SATURATION 40.0 % (30-44); IRON, SERUM 32.0 mcg/dL (65-175)
--- NOTE | 2025-01-25 13:00 | NUR ---
DCP: RETURN TO [facility] met with pt and his friend Esther Barrett [phone]. Per friend, pt lives in [facility] with his mother. Pt comes back and forth from [place], uses uncle Kishore Simms address and phone # [phone] as contact info. [facility] and a home, pt is independent of all his ADLS, uses no DME or in home care services. Pt has no insurance, or PCP in or . Pt will return to [place] with his mother a dc. Addendum: 01/25/25 at 1308 by FLORIDALMA HERCULES Amended: Links added.
[2025-01-25 13:15] LABS: INR 1.07 (0.85-1.15)
--- NOTE | 2025-01-25 14:20 | NUR ---
pt was admitted to room 223 and pt appears to be very weak and unable to stand for very long. pt has prepared with telepack and gown. pt states that he feels very weak.
[2025-01-25] MEDS ORDERED: NOREPINEPHRIN 4MG/NS 250ML 250 ML IV SCH (15:30)
--- NOTE | 2025-01-25 15:57 | PN ---
[facility] PROGRESS NOTE Date of Service: Jan 25, 2025 Time of Service: 15:15 SUBJECTIVE: Mr Bhardwaj is a 49-year-old male not pertinent history who is presented with [facility] [place] for [place] of with anorexia, fever, chills, generalized body weakness. The patient had an Right inguinal hernia three weeks ago and since then he reports he has been having complications. VS: HR 85 bpm, RR 18 bpm, BP 81/56, 99% RA, 97.9 F. Labs: Chemistry: WBC 2.9, RBC 2.71, Hgb 8.1, Hct 24.1, MPV 11.7, Urine: Specific [place] 1.038, Protein 10, Occult Blood Small, UA: Negative Nitrate, Negative Leukocyte Est, UA: RBC 6- 10, WBC 2-5, Coagulation: APTT 40.8, Chest CT: Severe diffuse airspace disease, air bronchogram, and smooth interstitial thickening bilaterally, compatible with pneumonia and pulmonary edema. There is a possibility of atypical viral pneumonia. Clinical correlation and further evaluation, and follow-up are suggested. Abdomen/Pelvis CT: Mild peripancreatic fat stranding. A small amount of fluid with mild fat stranding in the left upper quadrant at the inferior aspect of the spleen. The features concerning for acute interstitial pancreatitis. Recommend serum amylase and lipase evaluation. No other significant abnormality is visualized in the abdomen and pelvis. Groundglass opacities in the bilateral lung bases. EKG: SR, heart rate 66 bpm. In ED the patient received NS 30 mL/kilos, aspirin 325 mg, Rocephin 1 g, and was started on heparin drip. ED provider request patient be admitted with the diagnosis of NSTEMI, failure to thrive, pancreatitis, and pneumonia. The patient appeared chronically ill, weak, comfortable, breathing was even, unlabored, in no distress. 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 A nurse-assisted translation was used during the encounter. He presents with a three-week history of generalized weakness, anorexia, body aches, and dysphagia. His only active complaint is lower back pain, following a fall while attempting to get out of bed, associated with tonic-clonic movements of the left upper extremity 2 weeks ago. He reports orthostatic dizziness and a 10 lb weight loss over the past month. He denies chest pain, pressure, dyspnea, cough, or phlegm production. He denies prior myocardial infarction, coronary artery disease, diabetes, cerebrovascular accident, or bleeding disorders. Recent labs are significant for troponin trending upward (3,121 to 3,598), Procalcitonin 2.61, LDH 9.04, elevated liver enzymes (AST 113, ALP 392), and APTT 86.9. He is hemodynamically unstable, with blood pressure persistently at 7080/4050 mmHg despite IV fluid resuscitation. He has been started on norepinephrine. ID consult has been placed for further management. REVIEW OF SYSTEMS 12-point ROS reviewed with the patient. All pertinent positives mentioned above. Otherwise negative, noncontributory, non-pertinent. PHYSICAL EXAM GENERAL APPEARANCE: The patient is chronically ill, weak, awake, alert, and oriented, in no acute cardiopulmonary distress. NEUROLOGICAL: No sensory deficits. HEENT: Face is symmetric. Pupils are equal and reactive. Extraocular movements are intact. NECK: Supple. CHEST: Normal chest expansion. No Telemetry. LUNGS: Absence of any rales, rhonchi or any wheezing. CARDIOVASCULAR: Regular. S1 and S2 normal. No appreciable rubs, murmurs or gallops. ABDOMEN: Soft, nontender, and nondistended. There is no rebound, voluntary guarding, or rigidity. : Deferred. No [place]. EXTREMITIES: Non-edematous and not cyanotic. No clubbing. Good capillary refill. SKIN: Well healed surgical scar in the right inguinal area Vital Signs (last 8hr) Date Time Temp Pulse Resp B/P (MAP) Pulse Ox O2 Delivery O2 Flow Rate FiO2 01/25/25 12:42 97.9 63 20 99/60 96 Nasal Cannula* 4.0 N/A 01/25/25 12:01 98.8 82 18 96/59 96 Nasal Cannula* 4.0 N/A 01/25/25 11:32 69 22 01/25/25 10:00 98.2 75 18 87/50 95 Nasal Cannula* 2 28 01/25/25 09:30 64 22 N/Cannula Low lpm 4.0 36 01/25/25 08:00 98.2 74 18 84/48 94 Nasal Cannula* 2 28 LABS: Laboratory: Test 01/25/25 12:50 01/25/25 11:43 01/25/25 07:34 01/25/25 00:48 Range/Units Prothrombin Time 11.3 9.6-11.6 SEC Prothromb Time International Ratio 1.07 0.85-1.15 Activated Partial Thromboplast Time 86.9 H 26.3-35.5 SEC Troponin I High Sensitivity 3574 *H 4-75 ng/L Whole Blood Glucose 63 L 70-110 MG/DL White Blood Count 2.4 L 4.8-10.8 K/uL Red Blood Count 2.98 L 4.50-6.20 MIL/uL Hemoglobin 9.0 L 14.0-18.0 g/dL Hematocrit 26.3 L 42-54 % Mean Corpuscular Volume 88.3 79-99 fL Mean Corpuscular Hemoglobin 30.2 27.0-33.0 pg Mean Corpuscular Hemoglobin Concent 34.2 32.0-36.0 g/dL Red Cell Distribution Width 14.7 11.0-15.5 % Platelet Count 178 130-400 K/uL Mean Platelet Volume 11.5 H 7.5-10.5 fL Nucleated Red Blood Cells 0.0 0.0-0.19 % Sodium Level 131 L 136-145 mmol/L Potassium Level 4.4 3.5-5.1 mmol/L Chloride Level 103 101-111 mmol/L Carbon Dioxide Level 20 L 21-32 mmol/L Blood Urea Nitrogen 31 H 7-18 mg/dL Creatinine 0.7 0.5-1.3 mg/dL Glomerular Filtration Rate Calc 112 >90 mL/min Random Glucose 68 L 70-105 mg/dL Hemoglobin A1c 5.6 4.0-6.0 % Estimated Average Glucose (eAG) 114 70-126 mg/dL Total Calcium 7.5 L 8.5-10.1 mg/dL Phosphorus Level 3.0 2.5-4.9 mg/dL Magnesium Level 2.00 1.80-2.40 mg/dL Iron Level 32 L 65-175 mcg/dL Total Iron Binding Capacity 80 L 250-450 mcg/dL Percent Iron Saturation 40.0 30-44 % Total Bilirubin 0.5 0.2-1.0 mg/dL Aspartate Amino Transf (AST/SGOT) 113 H 10-37 U/L Alanine Aminotransferase (ALT/SGPT) 50 12-78 U/L Alkaline Phosphatase 392 H 50-136 U/L Lactate Dehydrogenase 904 H 81-234 U/L C-Reactive Protein, Quantitative 141.70 H 0.5-3.0 mg/L Total Protein 5.9 L 6.0-8.3 g/dL Albumin 1.3 L 3.5-5.0 g/dL Triglycerides Level 159 30-200 mg/dL Cholesterol Level 95 <200 mg/dL LDL Cholesterol 55 0-99 mg/dL HDL Cholesterol 14 L 29-71 mg/dL Procalcitonin 2.61 H 0.05-0.5 ng/mL Thyroid Stimulating Hormone (TSH) 1.51 0.36-3.74 uIU/mL Urine Color YELLOW YELLOW Urine Appearance CLEAR CLEAR Urine pH 6.0 5.0-8.0 Urine Specific [place] 1.038 H 1.001-1.031 Urine Protein 10 H NEGATIVE mg/dL Urine Glucose (UA) NEGATIVE NEGATIVE mg/dL Urine Ketones NEGATIVE NEGATIVE mg/dL Urine Occult Blood SMALL H NEGATIVE Urine Nitrate NEGATIVE NEGATIVE Urine Bilirubin NEGATIVE NEGATIVE mg/dL Urine Urobilinogen 0.2 0.2-1.0 mg/dL Urine Leukocyte Esterase NEGATIVE NEGATIVE Kerrie/uL Urine RBC 6-10 H 0-1 /HPF Urine WBC 2-5 H 0-1 /HPF Urine Bacteria RARE None Seen /HPF Test 01/24/25 21:40 01/24/25 20:10 01/24/25 19:52 Range/Units Lipase 435 H 16-77 U/L Influenza Type A Antigen Negative For Type A NEGATIVE Influenza Type B Antigen Negative For Type B NEGATIVE SARS-CoV-2, RNA, NAAT NEGATIVE SARS CoV-2 NEGATIVE Immature Granulocyte % (Auto) 1.8 H 0-1 % Neutrophils (%) (Auto) 74.3 40.0-77.0 % Lymphocytes (%) (Auto) 16.5 L 21.0-51.0 % Monocytes (%) (Auto) 7.0 3.0-13.0 % Eosinophils (%) (Auto) 0.0 0.0-8.0 % Basophils (%) (Auto) 0.4 0.0-5.0 % Neutrophils # (Auto) 2.1 1.8-7.7 K/uL Lymphocytes # (Auto) 0.5 L 1.0-4.8 K/uL Monocytes # (Auto) 0.2 0.1-1.0 K/uL Eosinophils # (Auto) 0.00 0.00-0.70 K/uL Basophils # (Auto) 0.01 0.00-0.20 K/uL Absolute Immature Granulocyte (auto 0.05 0-1 K/uL Segmented Neutrophils % 81 H 40-70 % Band Neutrophils % 8 H 0-2 % Lymphocytes % (Manual) 8 L 22-44 % Monocytes % (Manual) 3 2-9 % Differential Comment MANUAL DIFFERENTIAL White Cell Morphology Comment CONSISTENT W/DIFF Platelet Morphology Comment ADEQUATE Red Blood Cell Morphology ANISO 1+ Lactic Acid Level 1.5 0.8-2.5 mmol/L Total Creatine Kinase 82 21-232 U/L B-Type Natriuretic Peptide 61 0-100 pg/mL Group A Streptococcus Rapid negative NEGATIVE Current Medications Medications (Trade) Dose Ordered Sig/Braulio Route PRN Reason Start Time Stop Time Status Last Admin Dose Admin Acetaminophen (TYLenol 325MG TAB) 650 mg Q6H PRN PO FEVER/MILD PAIN LEVEL 1-3 01/25/25 09:00 02/24/25 08:59 Acetaminophen (TYLenol 650MG SUPPOSITORY) 650 mg Q6H PRN RC FEVER / MILD PAIN 1-3 IF NPO 01/25/25 09:00 02/24/25 08:59 Acetaminophen (acetaMINOPHEN) 1,000 mg Q6H IVPB 01/25/25 11:15 02/24/25 11:14 01/25/25 11:41 1,000 MG Albuterol Sulfate (Proventil 0.083% 2.5mg/3ml) 2.5 mg [id number] PRN IH SHORTNESS OF BREATH 01/25/25 09:00 02/24/25 08:59 Aspirin (Aspirin 81mg Chew Tab) 81 mg DAILY PO 01/25/25 09:00 02/24/25 08:59 01/25/25 07:46 81 MG Atorvastatin Calcium (LIPItor 40MG) 40 mg HS PO 01/25/25 21:00 01/25/25 10:49 DC Azithromycin 250 ml @ 250 mls/hr Q24H IVPB 01/25/25 00:30 02/04/25 00:29 01/25/25 00:32 250 MLS/HR Cefepime HCl (MAXipime 2 gm vial) 2 gm Q12H IVPB 01/25/25 11:30 02/04/25 11:29 01/25/25 11:34 2 GM Ceftriaxone Sodium (ROCEphine 1G INJ) 1 gm Q24H IVPB 01/25/25 09:00 01/25/25 11:28 DC 01/25/25 10:45 1 GM Dextrose/Sodium Chloride 1,000 ml @ 150 mls/hr Q6H40M IV 01/25/25 12:00 02/24/25 11:59 01/25/25 11:53 150 MLS/HR Docusate Sodium (COLace 100MG CAP) 100 mg BID PRN PO c 01/25/25 09:00 02/24/25 08:59 Heparin Sodium (Porcine) (HEParin 5,000 UNIT VIAL) *calculation based on ACTUAL B... AD PRN IV HEPARIN PROTOCOL 01/25/25 01:30 02/24/25 01:29 01/25/25 00:33 17 UNIT Heparin Sodium/ Dextrose 250 ml @ 0 mls/hr Q6H IV 01/25/25 01:30 01/25/25 10:45 DC 01/25/25 07:30 8.1 MLS/HR Insulin Human Regular (humuLIN R 100 UNIT/ML 3ML) INSULIN SLIDING SCAL... ACHS SQ 01/25/25 11:30 02/24/25 11:29 Ipratropium [place] (AtrovENT UD) 0.5 mg [id number] IH 01/25/25 12:00 02/24/25 11:59 01/25/25 11:32 0.5 MG Labetalol HCl (TRANdate 20MG SYG) 10 mg Q2H PRN IV SBP GREATER THAN 160 01/25/25 09:00 02/24/25 08:59 Lactulose (Constulose 20gm/ 30ml Udcup) 20 gm Q6H PRN PO CONSTIPATION 01/25/25 09:00 02/24/25 08:59 Midodrine (PROAMatine 5 MG TABLET) 10 mg TID PO 01/25/25 09:00 02/24/25 08:59 01/25/25 13:09 10 MG Nystatin (NYSTatin [id number] UNIT/ML 5ML UDCUP) 5 ml QID PO 01/25/25 13:00 02/01/25 12:59 01/25/25 13:08 5 ML Sodium Chloride 1,000 ml @ 75 mls/hr [id number] IV 01/25/25 03:00 01/25/25 11:46 DC 01/25/25 02:50 75 MLS/HR Temazepam (restORIL 15 MG CAP) 15 mg HS PRN PO INSOMNIA/SLEEP 01/25/25 09:00 02/24/25 08:59 Vancomycin HCl (Vancomycin 750mg) 750 mg Q8H IVPB 01/25/25 21:00 02/04/25 20:59 Vancomycin HCl (Vancomycin Protocol) 1 each AD IV 01/25/25 11:30 02/08/25 11:29 DIAGNOSTICS / RADIOLOGY: [place] [address] [address] IMAGING REPORT Signed PATIENT: ABEL BAHRDWAJ MR#: [id number] : 1975 SEX: M AGE: 49 LOCATION: [facility] ORDER 45 STATUS: [facility] REPORT#: [id number] SERVICE 44 REASON: abd pain , gi bleed ORDERING PHYSICIAN: JYOTSNA HERNANDEZ MD PROCEDURE: ABD PEL W - CT ABDOMEN/PELVIS W/CONTRAST EXAM: CT Abdomen and Pelvis with IV contrast CLINICAL HISTORY: Abdominal pain. GI bleed. TECHNIQUE: Thin collimated axial CT images of the abdomen and pelvis were obtained, with sagittal and coronal reformatted images also submitted. A CT scan is done according to ALARA (As Low As Reasonably Achievable). CONTRAST: Omnipaque 350 COMPARISON: None. FINDINGS: Diffuse groundglass opacities in the bilateral lung bases. Mild peripancreatic fatty stranding. A small amount of fluid with mild fat stranding in the left upper quadrant at the inferior aspect of the spleen. No focal abnormality within the liver, spleen, adrenals, or kidneys. The gallbladder is not visualized and is likely surgically removed. There is no obvious bowel wall thickening. Bowel loops are normal in caliber without evidence of obstruction or ileus. The appendix is normal. There is no abnormality within the urinary bladder. Unremarkable reproductive organs. Abdominal and pelvic vessels are patent. No lymphadenopathy. There is no acute osseous abnormality. Mild lumbar spondylosis. IMPRESSIONS: Mild peripancreatic fat stranding. A small amount of fluid with mild fat stranding in the left upper quadrant at the inferior aspect of the spleen. The features concerning for acute interstitial pancreatitis. Recommend serum amylase and lipase evaluation. No other significant abnormality is visualized in the abdomen and pelvis. Groundglass opacities in the bilateral lung bases. /[place] DICTATED BY: BARRIE HENRANDEZ Jr., MD DATE: 01/25/25103 ELECTRONICALLY SIGNED BY: BARRIE HERNANDEZ Jr., MD DATE: 01/25/25103 [place] [address] [place] [id number] IMAGING REPORT Addendum PATIENT: ABEL BHARDWAJ MR#: [id number] : 1975 SEX: M AGE: 49 LOCATION: [facility] ORDER 10 STATUS: REG ER REPORT#: [id number] SERVICE 09 REASON: sob ORDERING PHYSICIAN: JYOTSNA HERNANDEZ MD PROCEDURE: CHEST WO - CT CHEST W/O CONTRAST ADDENDUM REPORT ADDENDUM: Results were shared by telephone at 1:20 am on 01-25-25 and acknowledged by Jyotsna Santana /[place] EXAM: CT Chest without IV contrast CLINICAL HISTORY: Shortness of breath. TECHNIQUE: Thin-section axial CT through the thorax without intravenous contrast. Coronal, sagittal, and MIP reformation were generated on the same workstation. CT scan done according to ALARA (As Low as Reasonably Achievable). CONTRAST USED: None. COMPARISON: None provided. FINDINGS: Severe diffuse airspace disease, air bronchogram, and smooth interstitial thickening bilaterally, compatible with pneumonia and pulmonary edema. No pleural effusions. No pneumothorax. No pericardial effusion. The heart size is within normal limits. No axillary, supraclavicular, or mediastinal lymphadenopathy. No focal thyroid abnormality. Limited views of the upper abdomen demonstrate no abnormality. No acute or suspicious osseous abnormality. IMPRESSION: Severe diffuse airspace disease, air bronchogram, and smooth interstitial thickening bilaterally, compatible with pneumonia and pulmonary edema. There is a possibility of atypical viral pneumonia. Clinical correlation and further evaluation, and follow-up are suggested. /[place] DICTATED BY: BARRIE HERNANDEZ Jr., MD DATE: 01/25/25121 ELECTRONICALLY SIGNED BY: DATE: EXAM: CT Chest without IV contrast CLINICAL HISTORY: Shortness of breath. TECHNIQUE: Thin-section axial CT through the thorax without intravenous contrast. Coronal, sagittal, and MIP reformation were generated on the same workstation. CT scan done according to ALARA (As Low as Reasonably Achievable). CONTRAST USED: None. COMPARISON: None provided. FINDINGS: Severe diffuse airspace disease, air bronchogram, and smooth interstitial thickening bilaterally, compatible with pneumonia and pulmonary edema. No pleural effusions. No pneumothorax. No pericardial effusion. The heart size is within normal limits. No axillary, supraclavicular, or mediastinal lymphadenopathy. No focal thyroid abnormality. Limited views of the upper abdomen demonstrate no abnormality. No acute or suspicious osseous abnormality. IMPRESSION: Severe diffuse airspace disease, air bronchogram, and smooth interstitial thickening bilaterally, compatible with pneumonia and pulmonary edema. There is a possibility of atypical viral pneumonia. Clinical correlation and further evaluation, and follow-up are suggested. /[place] DICTATED BY: BARRIE HERNANDEZ Jr., MD DATE: 01/25/25115 ELECTRONICALLY SIGNED BY: BARRIE HERNANDEZ Jr., MD DATE: 01/25/25115 [place] [address] [place] [address] IMAGING REPORT Signed PATIENT: ABEL BHARDWAJ MR#: [id number] : 1975 SEX: M AGE: 49 LOCATION: [facility] ORDER 3 STATUS: ADM IN REPORT#: [id number] SERVICE 0853 REASON: evaluate for chf ORDERING PHYSICIAN: KEON ALY PROCEDURE: CXR1VW - CHEST 1VW EXAM: CR Chest, 1 View. CLINICAL HISTORY: evaluate for chf COMPARISON: Radiograph dated January 24, 2025 FINDINGS: Redemonstrated diffuse airspace disease throughout both lungs that may reflect pulmonary edema. No pleural effusion or pneumothorax. Heart size is within normal limits. Mild central pulmonary vascular congestion. IMPRESSION: 1. Diffuse airspace disease throughout both lungs, possibly representing pulmonary edema, with mild central pulmonary vascular congestion. 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 Severe sepsis, POA with shock, Pneumonia, POA * Bilateral pneumonia noted on CT chest 01/24/2025 - Atypical viral pneumonia suspected * Has history of Neurocysticercosis as per Cardiology note * Will assess for neurologic deficits and plan follow-up imaging as needed * Infectious Disease consult has been ordered * Broad-spectrum IV antibiotics - Cefepime, Azithromycin and Vancomycin ( Day 1) * Pulmonary consultation recommended given extensive infiltrates. * procalcitonin is 2.61, LDH - 904 * Will continue to monitor vitals, labs, and end-organ perfusion. * Monitor respirations status. * Oxygen as needed to keep SpO2 equal to greater than 92. Hypotension, responsive to midodrine and fluid bolus * IV fluid bolus of 1600 ml of 0.9 NS given * BP after the bolus is 88/57 mm hg * Started on Levophed * titrate to maintain MAP - 65 mmHg. * Blood pressure checks every 4 hours and as needed. * Ordered random serum cortisol s/p recent right inguinal hernia repair 3 weeks ago, POA * Right inguinal surgical scar present * well-healed, no signs of infection. Acute pancreatitis, POA * Patient is npo * CT abdomen 01/24/2025 shows peripancreatic fat stranding. * Discontinued IV heparin * Continue supportive care and IV fluid hydration * Pain control as needed with iv tylenol * Lipase - 435 Possible Neurocysticercosis * Patients records as per CT Brain from a hospital in [place] - 01.13.2025 - Four cystic-appearing lesions with hyperdense centers are identified. The largest is in the left frontal lobe, associated with significant surrounding edema. The other three are located in the occipital region and right basal ganglia. The differentiation between daniels and white matter is otherwise preserved, as is the appearance of the basal nuclei. * Infectious disease specialist consulted Possible HIV * Positive HIV 1 and 2 antibodies (preliminary) * ordered CD4 cell count NSTEMI, POA * No clinical evidence of acute coronary syndrome. * 2D echocardiogram ordered * troponin 3598 on 01.25.2025 * Cardiology consulted Anemia with leukopenia, POA * Likely multifactorial (sepsis, nutritional). * Hb- 8.1 , WBC - 2.9 * will trend CBC daily * iron - 32, TIBC- 80 and % Sat - 40 * ordered stool occult Hyponatremia, POA * serum sodium is 132 * Given 0.9 NS bolus * Strict I&Os. Dysphagia * Possible oral/esophageal candidiasis. * Monitor oral intake and swallow safety. Frailty/debility/ Failure to thrive/GBW, POA Glucose checks a.c. and HS with insulin regular sliding scale coverage as needed. Reconcile home medications once available. GI and DVT prophylaxis. Patient prognosis is guarded ATTESTATION BY PHYSICIAN I have seen and examined the patient. I reviewed the documentation, medical decision making, and treatment plan as noted by the resident provider above. I agree with the findings and plan of care. Lenny Wick MD, LAKSHMI MD Jan 25, 2025 15:57
[2025-01-25 16:08] LABS: HIV 1&2 ANTIBODY Preliminary Positive (Negative)
[2025-01-25 16:52] LABS: CREATININE 0.9 mg/dL (0.5-1.3); GLOMERULAR FILTR. RATE CALC 104 mL/min (>90); UREA NITROGEN, BLOOD 21 mg/dL (7-18)
[2025-01-25] MEDS ORDERED: PoTASSium chl 10% ELIXIR 20MEQ 20 MEQ/15 ML UDCUP PO PRN (17:00)
[2025-01-25] MEDS ORDERED: GLUCAGON 1MG KIT 1 MG ML IM PRN (17:00)
[2025-01-25] MEDS: DEXTROSE 5 % AND 0.9 % NACL 1,000 ML IV SCH (17:00)
[2025-01-25] MEDS ORDERED: MAGNESIUM 2GM PREMIX 50ML 50 ML IV PRN (17:00)
[2025-01-25] MEDS ORDERED: PoTASSium chloRIDE 20MEQ ER 20 MEQ ERTAB PO PRN (17:00)
[2025-01-25 17:46] LABS: SODIUM SERUM 134 mmol/L (136-145)
[2025-01-25] MEDS: VANCOMYCIN 750MG VIAL IVPB SCH (20:13)
[2025-01-25] MEDS: LIDOCAINE 5% TOPICAL PATCH TP ONE (22:08)
[2025-01-26] VITALS (18 sets, daily range): BP systolic 88–140; BP diastolic 55–84; PULSE 60–93; RESP 18–40; TEMP 98.4–101.4; O2SAT 88–95
--- NOTE | 2025-01-26 00:14 | NUR ---
Notified nurse on pts labor breathing and sats decreasing asked nurse to get a order to start pt on BIPAP. Addendum: 01/26/25 at 0016 by LOBO ALEJANDRE RT Amended: Links added.
[2025-01-26 01:25] LABS: ABG BASE EXCESS -5.9 mmol/L (-2.0-3.0); ABG HCO3 18.3 mmol/L (21.0-28.0); ABG OXYGEN SATURATION 95.1 % (94.0-98.0); ABG PCO2 33 mmHg (35-48); ABG PH 7.366 (7.350-7.450); DEVICE COMMENT LB,RN OSCAR; PO2, ARTERIAL BG 76.7 mmHg (83.0-108.0); TEMPERATURE, CELSIUS BG 37.0 CELSIUS (35.5-37.0); VENT MODE, BG BIPAP 12,6 (ROOM AIR)
[2025-01-26 02:28] LABS: NUCLEATED RED BLOOD CELLS 0.0 % (0.0-0.19); PLATELET COUNT (AUTO) 176.0 K/uL (130-400); RED BLOOD CELL COUNT(AUTO) 2.81 MIL/uL (4.50-6.20); RED CELL DISTRIBUTION WIDTH 14.9 % (11.0-15.5); WHITE BLOOD COUNT (AUTO) 2.5 K/uL (4.8-10.8)
[2025-01-26 03:01] LABS: CREATININE 0.7 mg/dL (0.5-1.3); GLOMERULAR FILTR. RATE CALC 112.0 mL/min (>90); GLUCOSE,RANDOM 85.0 mg/dL (70-105); PHOSPHORUS 2.6 mg/dL (2.5-4.9); SODIUM SERUM 130.0 mmol/L (136-145); UREA NITROGEN, BLOOD 21.0 mg/dL (7-18)
--- NOTE | 2025-01-26 06:00 | NUR ---
Overnight Shift Summary 2200: [employer] Account Representative paged in order to address pain management, Lidocaine patch order obtained for lower back pain s/p fall 0000: Melanie repaged given patient has had blood pressures with MAP above 65 mmHg. Orders received for Morphine IV and Bipap, as well as notify pulmonology for further recommendations. Patient is tachypneic and unable to tolerate NC 5L 0100: Tati SITE DAMAGE PREVENTION TECHNICIAN made aware of patient unable to tolerate Bipap, orders received for ABG and if patient cannot tolerate Bipap then transition patient to High Flow. Patient is breathing about 30 bpm and verbalizes anxiousness while on Bipap. RT made aware. 0130: Patient now on 12 L Oximizer given patient cannot tolerate Bipap. 0400: Patient transitioned to 15 L Oximizer 0600: Patient now on 15 L NRB, RT placed patient since patient was not able to improve oxygen saturations with oximizer.
[2025-01-26] MEDS: DEXTROSE 50%-WATER 50 ML DISP.SYRIN IV PRN (06:19)
--- NOTE | 2025-01-26 09:20 | CONS ---
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 who presented to the emergency department with a three-week history of anorexia, generalized body weakness, body aches and dysphagia. His history is pertinent for his right inguinal hernia repair 12/26/2024 at a hospital in [facility]. He was discharged after a 1 day hospitalization. He was feeling weak and apparently fell when he tried to get out of bed and had tonic-clonic movement of the left upper extremity. He was taken to a hospital in [facility] on approximately 01/09/2025 and was hospitalized there for 4-5 days. He was then sent to another hospital in [facility] for CT scan of the brain and was told that he was found to have an illness from eating raw pork meat (likely cysticercosis), he does not recall undergoing any treatment and was subsequently discharged home. He has had a three-week history of anorexia, generalized body weakness, body aches and dysphagia and was brought to the ER for further evaluation. The patient denies any prior history of NM, coronary artery disease, diabetes, CVA or any bleeding issues. He does report a 10 lb weight loss over the last month. An EKG on admission demonstrates a normal sinus rhythm, no ischemic changes or pathologic Q-waves, and a heart rate of 66 beats per minute. Chest x-ray reveals bilateral pneumonia. Initial testing positive for HIV. Patient with poor saturations on non-rebreather, hospitalist requested pulmonology consultation concern for possible need for intubation. Patient to be transferred to the ICU, we will start him antiseizure meds, ID consulted for antibiotic selection, possible antiparasitic. Pending a CT/MRI brain. Neurology consultation. Following cardiology recs we are pending an echocardiogram Confirmed full code status from patient's friend at bedside PAST MEDICAL HX: see above PAST SURGICAL HX: noncontributory SOCIAL HISTORY: No tobacco, ETOH, or illicit drug use Coded Allergies: No Known Drug Allergies (Unverified Allergy, Unknown, 01/24/25) REVIEW OF SYSTEMS: 12 point ROS reviewed with patient. Pertinent positives mentioned above. Otherwise negative. PHYSICAL EXAM: GENERAL: alert, weak, awake oriented x 3 HEENT: EOMI, Sclera non icteric, moist mucosa NECK: Supple, no JVD, trachea midline LUNGS: Clear breath sounds bilaterally. No wheezes HEART: Regular rate and rhythm. Normal S1 and S2, without murmurs ABD: Abdomen soft, nontender. Bowel sounds present EXT: No clubbing cyanosis or edema NEURO: Alert and oriented to person, follows commands Vital Signs (last 8hr) Date Time Temp Pulse Resp B/P (MAP) Pulse Ox O2 Delivery O2 Flow Rate FiO2 01/26/25 07:00 100.0 93 36 140/84 87 Nonrebreathing Mask 01/26/25 05:41 75 26 N/Cannula Oximizer Hi LPM 15.0 01/26/25 05:12 74 29 N/Cannula Oximizer Hi LPM 15.0 100 01/26/25 05:12 74 29 01/26/25 03:34 98.4 69 18 110/64 91 Nasal Cannula 12.0 01/26/25 02:07 62 36 N/Cannula Oximizer Hi LPM 12.0 88 01/26/25 02:01 70 36 LABS: Hematology Labs: Test 01/26/25 02:19 01/24/25 19:52 Range/Units White Blood Count 2.5 L 4.8-10.8 K/uL Red Blood Count 2.81 L 4.50-6.20 MIL/uL Hemoglobin 8.8 L 14.0-18.0 g/dL Hematocrit 25.5 L 42-54 % Mean Corpuscular Volume 90.7 79-99 fL Mean Corpuscular Hemoglobin 31.3 27.0-33.0 pg Mean Corpuscular Hemoglobin Concent 34.5 32.0-36.0 g/dL Red Cell Distribution Width 14.9 11.0-15.5 % Platelet Count 176 130-400 K/uL Mean Platelet Volume 11.3 H 7.5-10.5 fL Nucleated Red Blood Cells 0.0 0.0-0.19 % Immature Granulocyte % (Auto) 1.8 H 0-1 % Neutrophils (%) (Auto) 74.3 40.0-77.0 % Lymphocytes (%) (Auto) 16.5 L 21.0-51.0 % Monocytes (%) (Auto) 7.0 3.0-13.0 % Eosinophils (%) (Auto) 0.0 0.0-8.0 % Basophils (%) (Auto) 0.4 0.0-5.0 % Neutrophils # (Auto) 2.1 1.8-7.7 K/uL Lymphocytes # (Auto) 0.5 L 1.0-4.8 K/uL Monocytes # (Auto) 0.2 0.1-1.0 K/uL Eosinophils # (Auto) 0.00 0.00-0.70 K/uL Basophils # (Auto) 0.01 0.00-0.20 K/uL Absolute Immature Granulocyte (auto 0.05 0-1 K/uL Segmented Neutrophils % 81 H 40-70 % Band Neutrophils % 8 H 0-2 % Lymphocytes % (Manual) 8 L 22-44 % Monocytes % (Manual) 3 2-9 % Differential Comment MANUAL DIFFERENTIAL White Cell Morphology Comment CONSISTENT W/DIFF Platelet Morphology Comment ADEQUATE Red Blood Cell Morphology ANISO 1+ Chemistry Labs: Test 01/26/25 06:28 01/26/25 02:29 01/26/25 02:19 01/25/25 07:34 Range/Units Whole Blood Glucose 185 #H 70-110 MG/DL Lactic Acid Level 1.1 0.8-2.5 mmol/L Sodium Level 130 L 136-145 mmol/L Potassium Level 4.1 3.5-5.1 mmol/L Chloride Level 104 101-111 mmol/L Carbon Dioxide Level 22 21-32 mmol/L Blood Urea Nitrogen 21 H 7-18 mg/dL Creatinine 0.7 0.5-1.3 mg/dL Glomerular Filtration Rate Calc 112 >90 mL/min Random Glucose 85 70-105 mg/dL Total Calcium 7.0 L 8.5-10.1 mg/dL Phosphorus Level 2.6 2.5-4.9 mg/dL Magnesium Level 1.80 1.80-2.40 mg/dL Troponin I High Sensitivity 3828 *H 4-75 ng/L C-Reactive Protein, Quantitative 98.90 H 0.5-3.0 mg/L B-Type Natriuretic Peptide 94 0-100 pg/mL Hemoglobin A1c 5.6 4.0-6.0 % Estimated Average Glucose (eAG) 114 70-126 mg/dL Iron Level 32 L 65-175 mcg/dL Total Iron Binding Capacity 80 L 250-450 mcg/dL Percent Iron Saturation 40.0 30-44 % Total Bilirubin 0.5 0.2-1.0 mg/dL Aspartate Amino Transf (AST/SGOT) 113 H 10-37 U/L Alanine Aminotransferase (ALT/SGPT) 50 12-78 U/L Alkaline Phosphatase 392 H 50-136 U/L Lactate Dehydrogenase 904 H 81-234 U/L Total Protein 5.9 L 6.0-8.3 g/dL Albumin 1.3 L 3.5-5.0 g/dL Triglycerides Level 159 30-200 mg/dL Cholesterol Level 95 <200 mg/dL LDL Cholesterol 55 0-99 mg/dL HDL Cholesterol 14 L 29-71 mg/dL Procalcitonin 2.61 H 0.05-0.5 ng/mL Thyroid Stimulating Hormone (TSH) 1.51 0.36-3.74 uIU/mL Test 01/24/25 21:40 01/24/25 19:52 Range/Units Lipase 435 H 16-77 U/L Total Creatine Kinase 82 21-232 U/L Coagulation Labs: Test 01/25/25 12:50 Range/Units Prothrombin Time 11.3 9.6-11.6 SEC Prothromb Time International Ratio 1.07 0.85-1.15 Activated Partial Thromboplast Time 86.9 H 26.3-35.5 SEC DIAGNOSTICS / RADIOLOGY RESULTS: [ ] PLAN We will transfer patient to ICU. Infectious Disease has been consulted. Following cardiology recommendations, telemetry, pending echocardiogram RT assessment, nebulizer treatments Neurology consultation, pending brain imaging Seizure precautions, start patient on Keppra NEURO: Minimize central acting medications as possible. Fall Precautions. Well lighted room through the day and minimize interruptions through the night to prevent acute delirium. PULMONARY: Supplemental 02 as needed Titrate Fio2 to keep Spo2 > or = 90% DuoNebs and CPT as needed IS hourly while awake for pulmonary hygiene Out of bed to chair as tolerated VAP Bundle Vent/BIPAP Settings: [ ] Driving pressure: [ ] P Plat: [ ] Static C: [ ] Static R: [ ] P/F Ratio: [ ] CARDIOVASCULAR: Follow hemodynamics. Titrate vasopressor to keep MAP >65 or systolic blood pressure >95mmHg DIPS: [ ] LINES: [ ] GI & NUTRITION: Continue nutritional support Aspirations precautions Prokinetic agents and laxatives as needed KIDNEYS & ELECTROLYTES: Strict monitoring of intake and output Daily weights Avoid nephrotoxic agents Monitor electrolytes and replace as needed Goal urine output of 30mL/hr or 0.5mL/kg/hr Urine output: [ ] Fluid Balance: [ ] ENDOCRINE: Maintain blood glucose between 100-180 at all times. Insulin sliding scale for blood glucose management INFECTIOUS DISEASE: Trend temperature. Johnson-culture if febrile. Micro: [ ] Antibiotics: [ ] HEMATOLOGY & COAGULATION: Monitor H&H. Keep Hgb > 7 Transfuse 1 unit of PRBC for Hgb < 7 Transfuse 1 pack of platelets of platelets < 20, 000 Watch for any signs and symptoms of bleeding SKIN: Pressure ulcer prevention per facility protocol Rehab: PT/OT Prophylaxis: GI: [ ] DVT: [ ] Code Status: Full Resuscitation Disposition: [ ] Other: Total critical care time spent 92 minutes or greater. This excludes any procedures or educational time Case was discussed with my supervising physician. The above plan was formulated and agreed upon. LYUDMILA QUESADA Jan 26, 2025 09:20
--- NOTE | 2025-01-26 09:20 | NUR ---
VERBAL ORDER RECEIVED FROM ENRIQUE QUESADA BENCHMARK TEAM TO TRANSFER PATIENT TO [facility] FOR HIGHER LEVER OF CARE FOR NEUROLOGY SERVICES. PAPERWORK SUBMITTED AWAITING FOR RESPONSE. LATE ENTRY-RK 01/27/2025
[2025-01-26 09:24] LABS: ASPARTATE AMINOTRANSFERASE 103.0 U/L (10-37); CREATININE 0.7 mg/dL (0.5-1.3); GLOMERULAR FILTR. RATE CALC 112.0 mL/min (>90); GLUCOSE,RANDOM 145.0 mg/dL (70-105); SODIUM SERUM 130.0 mmol/L (136-145); TOTAL PROTEIN, SERUM 5.6 g/dL (6.0-8.3); UREA NITROGEN, BLOOD 20.0 mg/dL (7-18)
--- NOTE | 2025-01-26 09:58 | PN ---
[facility] CARDIOLOGY PROGRESS NOTE Date Patient Seen: Jan 26, 2025 Time of Visit: 09:56 Interval History: This is a 49-year-old Stateless National with a history of recently diagnosed cysticercosis with PUTTER IN involvement, a recent right inguinal hernia repair 08/2024 at a hospital in [facility] who presented to the emergency department with a three-week history of anorexia, generalized body weakness, body aches and dysphagia. His history is pertinent for his right inguinal hernia repair 12/26/2024 at a hospital in [facility]. He was discharged after a 1 day hospitalization. He was feeling weak and apparently fell when he tried to get out of bed and had tonic-clonic movement of the left upper extremity. He was taken to a hospital in [facility] on approximately 01/09/2025 and was hospitalized there for 4-5 days. He was then sent to another hospital in [facility] for CT scan of the brain and was told that he was found to have an illness from eating raw pork meat (likely cysticercosis), he does not recall undergoing any treatment and was subsequently discharged home. He has had a three-week history of anorexia, generalized body weakness, body aches and dysphagia and was brought to the ER for further evaluation. In the emergency department, he was found to be hypotensive with a blood pressure of 75/56, he was afebrile, labs were remarkable for a WBC of 2.9, hemoglobin 8.1, hematocrit of 24.1 and a platelet count of 156, sodium 132, potassium 4.7, BUN 46 and creatinine of 1.0. Lactic acid of 1.5. CK of 82 and a high sensitivity cardiac troponin of 3121, with repeat of 3099 and 3598. He was initiated on IV heparin but this was subsequently discontinued due to concern for pancreatitis. He has offered no complaints of chest pain throughout his course of illness. He has been admitted for further management of sepsis, pulmonary involvement with extensive infiltrates noted on a CT scan of the chest on admission. Overnight, he has required initiation of BiPAP which he did not tolerate and currently is on 100% non-rebreather mass. He has complained of generalized pain and is somnolent this morning. The patient denies any prior history of [place], coronary artery disease, diabetes, CVA or any bleeding issues. He does report a 10 lb weight loss over the last month. Physical Examination: GENERAL: Thin, weak and somnolent this morning. Cachectic. HEAD: Normal with no signs of head trauma. EYES: PERRLA, EOMI, conjunctiva and sclera normal. ENT: Hearing grossly intact, smooth, red smooth tongue with white patches noted along the lateral edges. NECK: Supple without JVD. There is no tenderness, lymphadenopathy, or masses. No thyromegaly. Normal carotid upstrokes without bruits. LUNGS: Transmitted breath sounds at the right base and crackles at the left side. HEART: Normal rate and rhythm. Normal S1 and S2 without murmurs, gallop or rub. VASC: Peripheral pulses +2 bilaterally. Trace pedal edema ABD: Thin abdomen, Bowel sounds normal, soft, nontender, no masses, no organomegaly. No audible bruits. EXT: There is a healing wound to the right groin, no masses, no evidence of infection. Lower extremities demonstrate No clubbing, cyanosis, there is a trace of pedal edema. SKIN: Lower extremity areas of excoriation noted. NEURO: Awake, alert, and oriented x3. Generalized weakness noted but is able to move extremities with weakness Laboratory: Hematology Labs: Test 01/26/25 02:19 01/24/25 19:52 Range/Units White Blood Count 2.5 L 4.8-10.8 K/uL Red Blood Count 2.81 L 4.50-6.20 MIL/uL Hemoglobin 8.8 L 14.0-18.0 g/dL Hematocrit 25.5 L 42-54 % Mean Corpuscular Volume 90.7 79-99 fL Mean Corpuscular Hemoglobin 31.3 27.0-33.0 pg Mean Corpuscular Hemoglobin Concent 34.5 32.0-36.0 g/dL Red Cell Distribution Width 14.9 11.0-15.5 % Platelet Count 176 130-400 K/uL Mean Platelet Volume 11.3 H 7.5-10.5 fL Nucleated Red Blood Cells 0.0 0.0-0.19 % Immature Granulocyte % (Auto) 1.8 H 0-1 % Neutrophils (%) (Auto) 74.3 40.0-77.0 % Lymphocytes (%) (Auto) 16.5 L 21.0-51.0 % Monocytes (%) (Auto) 7.0 3.0-13.0 % Eosinophils (%) (Auto) 0.0 0.0-8.0 % Basophils (%) (Auto) 0.4 0.0-5.0 % Neutrophils # (Auto) 2.1 1.8-7.7 K/uL Lymphocytes # (Auto) 0.5 L 1.0-4.8 K/uL Monocytes # (Auto) 0.2 0.1-1.0 K/uL Eosinophils # (Auto) 0.00 0.00-0.70 K/uL Basophils # (Auto) 0.01 0.00-0.20 K/uL Absolute Immature Granulocyte (auto 0.05 0-1 K/uL Segmented Neutrophils % 81 H 40-70 % Band Neutrophils % 8 H 0-2 % Lymphocytes % (Manual) 8 L 22-44 % Monocytes % (Manual) 3 2-9 % Differential Comment MANUAL DIFFERENTIAL White Cell Morphology Comment CONSISTENT W/DIFF Platelet Morphology Comment ADEQUATE Red Blood Cell Morphology ANISO 1+ Chemistry Labs: Test 01/26/25 07:34 01/26/25 06:28 01/26/25 02:29 01/26/25 02:19 Range/Units Sodium Level 130 L 136-145 mmol/L Potassium Level 3.9 3.5-5.1 mmol/L Chloride Level 104 101-111 mmol/L Carbon Dioxide Level 18 L 21-32 mmol/L Blood Urea Nitrogen 20 H 7-18 mg/dL Creatinine 0.7 0.5-1.3 mg/dL Glomerular Filtration Rate Calc 112 >90 mL/min Random Glucose 145 #H 70-105 mg/dL Total Calcium 7.4 L 8.5-10.1 mg/dL Total Bilirubin 0.4 0.2-1.0 mg/dL Aspartate Amino Transf (AST/SGOT) 103 H 10-37 U/L Alanine Aminotransferase (ALT/SGPT) 41 12-78 U/L Alkaline Phosphatase 423 H 50-136 U/L Total Protein 5.6 L 6.0-8.3 g/dL Albumin 1.1 L 3.5-5.0 g/dL Lipase 89 H 16-77 U/L Whole Blood Glucose 185 #H 70-110 MG/DL Lactic Acid Level 1.1 0.8-2.5 mmol/L Phosphorus Level 2.6 2.5-4.9 mg/dL Magnesium Level 1.80 1.80-2.40 mg/dL Troponin I High Sensitivity 3828 *H 4-75 ng/L C-Reactive Protein, Quantitative 98.90 H 0.5-3.0 mg/L B-Type Natriuretic Peptide 94 0-100 pg/mL Test 01/25/25 07:34 01/24/25 19:52 Range/Units Hemoglobin A1c 5.6 4.0-6.0 % Estimated Average Glucose (eAG) 114 70-126 mg/dL Iron Level 32 L 65-175 mcg/dL Total Iron Binding Capacity 80 L 250-450 mcg/dL Percent Iron Saturation 40.0 30-44 % Lactate Dehydrogenase 904 H 81-234 U/L Triglycerides Level 159 30-200 mg/dL Cholesterol Level 95 <200 mg/dL LDL Cholesterol 55 0-99 mg/dL HDL Cholesterol 14 L 29-71 mg/dL Procalcitonin 2.61 H 0.05-0.5 ng/mL Thyroid Stimulating Hormone (TSH) 1.51 0.36-3.74 uIU/mL Total Creatine Kinase 82 21-232 U/L Coagulation Labs: Test 01/25/25 12:50 Range/Units Prothrombin Time 11.3 9.6-11.6 SEC Prothromb Time International Ratio 1.07 0.85-1.15 Activated Partial Thromboplast Time 86.9 H 26.3-35.5 SEC Diagnostics / Radiology: 2D echocardiogram is pending Chest x-ray 01/25/2025 demonstrated diffuse infiltrative pattern Impression and Plan: Troponin elevation, with no evidence of acute coronary syndrome, in the setting of hypotension and sepsis: No clinical evidence of acute coronary syndrome: -continue aspirin -obtain 2D echocardiogram and follow-up on results -defer statin therapy -no plans for any further cardiac workup, but we will wait results of 2D echocardiogram Sepsis, likely related to pneumonia: Bilateral pneumonia by CT scan of the chest 01/24/2025: -continue broad-spectrum antibiotics as per primary -extensive infiltrates in an asymptomatic patient (no cough, dyspnea, hypoxemia) is unusual -pulmonary consultation today Positive HIV 1 and 2 antibodies (preliminary): -ID consult is also pending Concern for pancreatitis with peripancreatic fat stranding on CT scan of the abdomen 01/24/2025: -discontinue IV heparin -continue supportive care and IV fluid hydration Anemia with neutropenia, uncertain etiology: -may be related to sepsis -trend CBC Volume depletion: -continue IV fluid hydration Dysphagia: -possible candidiasis -continue nystatin therapy PHYSICIAN ATTESTATION OF PHYSICIAN STAFFING MANAGER DOCUMENTATION: I attest that I was physically present for the galvin portions of the service and evaluated the patient with the Physician Trailer Sections Assembler, and I reviewed and discussed the case with the Physician Trailer Sections Assembler and made modifications to the Physician Trailer Sections Assembler's findings and plans of care as documented above KEON ALY Jan 26, 2025 09:58 KIRIT BARTLETT MD Jan 27, 2025 15:53
--- NOTE | 2025-01-26 13:15 | NUR ---
RECEIVED CALL FROM [facility]. PER TOWER DIRECTOR NII HENNESSY PATIENT HAS BEEN THE DECLINE TRANSFER. FOOTWEAR FACTORY WORKER RK/IF NOTIFIED ENRIQUE QUESADA ABOUT THE DECLINE TRANSFER. BENCHMARK TEAM HE HAS DECIDED TO KEEP PATIENT AT [facility] FOR NOW AND CANCEL THE TRANSFER. LATE ENTRY [place] 01/27/2025
--- NOTE | 2025-01-26 13:49 | NUR ---
best MRI imaging possible pt was unable to fully cooperate scanning became too dangerous for the patient nearly fell off pt couch. imaging that I was able to obtain is provided degraded by movement artifact. PT NEEDS TO BE MORE STABLE IF REPEAT SCAN IS REQUESTED.
--- NOTE | 2025-01-26 14:13 | HMCIMG ---
EXAM: CT Lumbar Spine Without IV contrast. CLINICAL HISTORY: lower back pain after fall TECHNIQUE: Axial computed tomography images of the lumbar spine without intravenous contrast. Sagittal and coronal reformatted images were generated. COMPARISON: None provided. FINDINGS: ALIGNMENT: Bony alignment is anatomic. DISCS/DEGENERATIVE CHANGES: Anterior osteophytes and vacuum phenomena at facet joints of the L4-5 vertebrae. BONES: No acute fracture or aggressive appearing osseous lesion. SOFT TISSUES: The soft tissues are unremarkable. IMPRESSION: 1. No acute osseous injury. /[place]
--- NOTE | 2025-01-26 14:15 | NUR ---
[facility] Consult: Patient assessed by wound healing team. Patient with low kayla score with no wounds noted. Assessment and recommendations provided to primary nurse. Education provided. Addendum: 01/27/25 at 0947 by SAMEERA PAUL RN RN/ Amended: Links added.
--- NOTE | 2025-01-26 15:49 | PN ---
[facility] PROGRESS NOTE Date of Service: Jan 26, 2025 Time of Service: 15:32 SUBJECTIVE: Mr Bhardwaj is a 49-year-old male not pertinent history who is presented with [facility] [place] for evaluation of with anorexia, fever, chills, generalized body weakness. The patient had an Right inguinal hernia three weeks ago and since then he reports he has been having complications. VS: HR 85 bpm, RR 18 bpm, BP 81/56, 99% RA, 97.9 F. Labs: Chemistry: WBC 2.9, RBC 2.71, Hgb 8.1, Hct 24.1, MPV 11.7, Urine: Specific [place] 1.038, Protein 10, Occult Blood Small, UA: Negative Nitrate, Negative Leukocyte Est, UA: RBC 6- 10, WBC 2-5, Coagulation: APTT 40.8, Chest CT: Severe diffuse airspace disease, air bronchogram, and smooth interstitial thickening bilaterally, compatible with pneumonia and pulmonary edema. There is a possibility of atypical viral pneumonia. Clinical correlation and further evaluation, and follow-up are suggested. Abdomen/Pelvis CT: Mild peripancreatic fat stranding. A small amount of fluid with mild fat stranding in the left upper quadrant at the inferior aspect of the spleen. The features concerning for acute interstitial pancreatitis. Recommend serum amylase and lipase evaluation. No other significant abnormality is visualized in the abdomen and pelvis. Groundglass opacities in the bilateral lung bases. EKG: SR, heart rate 66 bpm. In ED the patient received NS 30 mL/kilos, aspirin 325 mg, Rocephin 1 g, and was started on heparin drip. ED provider request patient be admitted with the diagnosis of NSTEMI, failure to thrive, pancreatitis, and pneumonia. The patient appeared chronically ill, weak, comfortable, breathing was even, unlabored, in no distress. 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 A nurse-assisted translation was used during the encounter. He presents with a three-week history of generalized weakness, anorexia, body aches, and dysphagia. His only active complaint is lower back pain, following a fall while attempting to get out of bed, associated with tonic-clonic movements of the left upper extremity 2 weeks ago. He reports orthostatic dizziness and a 10 lb weight loss over the past month. He denies chest pain, pressure, dyspnea, cough, or phlegm production. He denies prior myocardial infarction, coronary artery disease, diabetes, cerebrovascular accident, or bleeding disorders. Recent labs are significant for troponin trending upward (3,121 to 3,598), Procalcitonin 2.61, LDH 9.04, elevated liver enzymes (AST 113, ALP 392), and APTT 86.9. He is hemodynamically unstable, with blood pressure persistently at 7080/4050 mmHg despite IV fluid resuscitation. He has been started on norepinephrine. ID consult has been placed for further management. 01.26.2025: Patient evaluated for worsening shortness of breath and inability to tolerate BiPAP. Direct discussion held with Critical Care ENRIQUE Acosta regarding current management. Patient reports persistent dyspnea, anxiety, and discomfort with oxygen delivery devices. Lower back pain post-fall is being managed with Lidocaine patch and morphine. ENRIQUE Acosta confirmed ongoing ICU transfer, infectious disease and neurology consults, and continuation of supportive care. REVIEW OF SYSTEMS 12-point ROS reviewed with the patient. All pertinent positives mentioned above. Otherwise negative, noncontributory, non-pertinent. PHYSICAL EXAM GENERAL APPEARANCE: The patient is chronically ill, weak, awake,and alert, Patient in respiratory distress NEUROLOGICAL: No sensory deficits. HEENT: Face is symmetric. Pupils are equal and reactive. Extraocular movements are intact. NECK: Supple. CHEST: Normal chest expansion. CARDIOVASCULAR: Regular. S1 and S2 normal. No appreciable rubs, murmurs or gallops. ABDOMEN: Soft, nontender, and nondistended. There is no rebound, voluntary guarding, or rigidity. : Deferred. No [place]. EXTREMITIES: Non-edematous and not cyanotic. No clubbing. Good capillary refill. SKIN: Well healed surgical scar in the right inguinal area Vital Signs (last 8hr) Date Time Temp Pulse Resp B/P (MAP) Pulse Ox O2 Delivery O2 Flow Rate FiO2 01/26/25 12:00 77 26 Non Rebreather 15.0 100 01/26/25 11:33 73 26 01/26/25 11:00 100.0 71 32 101/64 93 Nonrebreathing Mask LABS: Laboratory: Test 01/26/25 12:00 01/26/25 11:30 01/26/25 07:34 01/26/25 02:29 Range/Units Vancomycin Level Trough 18.8 10.0-20.0 UG/ML Whole Blood Glucose 86 # 70-110 MG/DL Sodium Level 130 L 136-145 mmol/L Potassium Level 3.9 3.5-5.1 mmol/L Chloride Level 104 101-111 mmol/L Carbon Dioxide Level 18 L 21-32 mmol/L Blood Urea Nitrogen 20 H 7-18 mg/dL Creatinine 0.7 0.5-1.3 mg/dL Glomerular Filtration Rate Calc 112 >90 mL/min Random Glucose 145 #H 70-105 mg/dL Total Calcium 7.4 L 8.5-10.1 mg/dL Total Bilirubin 0.4 0.2-1.0 mg/dL Aspartate Amino Transf (AST/SGOT) 103 H 10-37 U/L Alanine Aminotransferase (ALT/SGPT) 41 12-78 U/L Alkaline Phosphatase 423 H 50-136 U/L Total Protein 5.6 L 6.0-8.3 g/dL Albumin 1.1 L 3.5-5.0 g/dL Lipase 89 H 16-77 U/L Lactic Acid Level 1.1 0.8-2.5 mmol/L Test 01/26/25 02:19 01/26/25 01:23 01/25/25 12:50 01/25/25 07:34 Range/Units White Blood Count 2.5 L 4.8-10.8 K/uL Red Blood Count 2.81 L 4.50-6.20 MIL/uL Hemoglobin 8.8 L 14.0-18.0 g/dL Hematocrit 25.5 L 42-54 % Mean Corpuscular Volume 90.7 79-99 fL Mean Corpuscular Hemoglobin 31.3 27.0-33.0 pg Mean Corpuscular Hemoglobin Concent 34.5 32.0-36.0 g/dL Red Cell Distribution Width 14.9 11.0-15.5 % Platelet Count 176 130-400 K/uL Mean Platelet Volume 11.3 H 7.5-10.5 fL Nucleated Red Blood Cells 0.0 0.0-0.19 % Phosphorus Level 2.6 2.5-4.9 mg/dL Magnesium Level 1.80 1.80-2.40 mg/dL Troponin I High Sensitivity 3828 *H 4-75 ng/L C-Reactive Protein, Quantitative 98.90 H 0.5-3.0 mg/L B-Type Natriuretic Peptide 94 0-100 pg/mL Blood Gas Specimen Type Arterial Arterial Blood pH 7.366 7.350-7.450 Arterial Blood Partial Pressure CO2 33 L 35-48 mmHg Arterial Blood Partial Pressure O2 76.7 L 83.0-108.0 mmHg Arterial Blood HCO3 18.3 L 21.0-28.0 mmol/L Arterial Blood Oxygen Saturation 95.1 94.0-98.0 % Arterial Blood Base Excess -5.9 L -2.0-3.0 mmol/L Blood Gas Temperature 37.0 35.5-37.0 CELSIUS Blood Gas Respiration Rate 14.0 min. Blood Gas Vent Mode BIPAP 12,6 ROOM AIR FiO2 50.0 % Blood Gas Specimen Comment LB,RN RORO Prothrombin Time 11.3 9.6-11.6 SEC Prothromb Time International Ratio 1.07 0.85-1.15 Activated Partial Thromboplast Time 86.9 H 26.3-35.5 SEC Hemoglobin A1c 5.6 4.0-6.0 % Estimated Average Glucose (eAG) 114 70-126 mg/dL Iron Level 32 L 65-175 mcg/dL Total Iron Binding Capacity 80 L 250-450 mcg/dL Percent Iron Saturation 40.0 30-44 % Lactate Dehydrogenase 904 H 81-234 U/L Triglycerides Level 159 30-200 mg/dL Cholesterol Level 95 <200 mg/dL LDL Cholesterol 55 0-99 mg/dL HDL Cholesterol 14 L 29-71 mg/dL Procalcitonin 2.61 H 0.05-0.5 ng/mL Thyroid Stimulating Hormone (TSH) 1.51 0.36-3.74 uIU/mL HIV (1&2) Antibody Preliminary Positive *A Negative HIV P24 Antigen, Qualitative Non-Reactive Negative Test 01/25/25 00:48 01/24/25 20:10 01/24/25 19:52 Range/Units Urine Color YELLOW YELLOW Urine Appearance CLEAR CLEAR Urine pH 6.0 5.0-8.0 Urine Specific [place] 1.038 H 1.001-1.031 Urine Protein 10 H NEGATIVE mg/dL Urine Glucose (UA) NEGATIVE NEGATIVE mg/dL Urine Ketones NEGATIVE NEGATIVE mg/dL Urine Occult Blood SMALL H NEGATIVE Urine Nitrate NEGATIVE NEGATIVE Urine Bilirubin NEGATIVE NEGATIVE mg/dL Urine Urobilinogen 0.2 0.2-1.0 mg/dL Urine Leukocyte Esterase NEGATIVE NEGATIVE Kerrie/uL Urine RBC 6-10 H 0-1 /HPF Urine WBC 2-5 H 0-1 /HPF Urine Bacteria RARE None Seen /HPF Influenza Type A Antigen Negative For Type A NEGATIVE Influenza Type B Antigen Negative For Type B NEGATIVE SARS-CoV-2, RNA, NAAT NEGATIVE SARS CoV-2 NEGATIVE Immature Granulocyte % (Auto) 1.8 H 0-1 % Neutrophils (%) (Auto) 74.3 40.0-77.0 % Lymphocytes (%) (Auto) 16.5 L 21.0-51.0 % Monocytes (%) (Auto) 7.0 3.0-13.0 % Eosinophils (%) (Auto) 0.0 0.0-8.0 % Basophils (%) (Auto) 0.4 0.0-5.0 % Neutrophils # (Auto) 2.1 1.8-7.7 K/uL Lymphocytes # (Auto) 0.5 L 1.0-4.8 K/uL Monocytes # (Auto) 0.2 0.1-1.0 K/uL Eosinophils # (Auto) 0.00 0.00-0.70 K/uL Basophils # (Auto) 0.01 0.00-0.20 K/uL Absolute Immature Granulocyte (auto 0.05 0-1 K/uL Segmented Neutrophils % 81 H 40-70 % Band Neutrophils % 8 H 0-2 % Lymphocytes % (Manual) 8 L 22-44 % Monocytes % (Manual) 3 2-9 % Differential Comment MANUAL DIFFERENTIAL White Cell Morphology Comment CONSISTENT W/DIFF Platelet Morphology Comment ADEQUATE Red Blood Cell Morphology ANISO 1+ Total Creatine Kinase 82 21-232 U/L Group A Streptococcus Rapid negative NEGATIVE Current Medications Medications (Trade) Dose Ordered Sig/Braulio Route PRN Reason Start Time Stop Time Status Last Admin Dose Admin Acetaminophen (TYLenol 325MG TAB) 650 mg Q6H PRN PO FEVER/MILD PAIN LEVEL 1-3 01/25/25 09:00 02/24/25 08:59 Acetaminophen (TYLenol 650MG SUPPOSITORY) 650 mg Q6H PRN RC FEVER / MILD PAIN 1-3 IF NPO 01/25/25 09:00 02/24/25 08:59 Acetaminophen (acetaMINOPHEN) 1,000 mg Q6H IVPB 01/25/25 11:15 02/24/25 11:14 01/26/25 12:38 1,000 MG Albuterol (DUOneb) 1 UDVIAL [id number] IH 01/26/25 12:00 02/25/25 11:59 01/26/25 11:33 1 UDVIAL Albuterol Sulfate (Proventil 0.083% 2.5mg/3ml) 2.5 mg [id number] PRN IH SHORTNESS OF BREATH 01/25/25 09:00 02/24/25 08:59 Aspirin (Aspirin 81mg Chew Tab) 81 mg DAILY PO 01/25/25 09:00 02/24/25 08:59 01/26/25 09:00 81 MG Atorvastatin Calcium (LIPItor 40MG) 40 mg HS PO 01/25/25 21:00 01/25/25 10:49 DC Azithromycin 250 ml @ 250 mls/hr Q24H IVPB 01/25/25 00:30 02/04/25 00:29 01/26/25 00:20 250 MLS/HR Cefepime HCl (MAXipime 2 gm vial) 2 gm Q12H IVPB 01/25/25 11:30 02/04/25 11:29 01/26/25 12:38 2 GM Ceftriaxone Sodium (ROCEphine 1G INJ) 1 gm Q24H IVPB 01/25/25 09:00 01/25/25 11:28 DC 01/25/25 10:45 1 GM Dexamethasone Sodium Phosphate (dexaMETHasone 4MG/ML 1ML VIAL) 6 mg Q12H IVP 01/26/25 09:30 02/25/25 09:29 01/26/25 09:45 6 MG Dextrose (D50w) 50 ml AD PRN IV HYPOGLYCEMIA PROTOCOL 01/25/25 17:00 02/24/25 16:59 01/26/25 06:19 50 ML Dextrose/Sodium Chloride 1,000 ml @ 75 mls/hr [id number] IV 01/25/25 17:00 02/24/25 16:59 01/25/25 22:30 150 MLS/HR Dextrose/Sodium Chloride 1,000 ml @ 150 mls/hr Q6H40M IV 01/25/25 12:00 01/25/25 16:35 DC 01/25/25 11:53 150 MLS/HR Docusate Sodium (COLace 100MG CAP) 100 mg BID PRN PO c 01/25/25 09:00 02/24/25 08:59 Glucagon (Glucagon 1mg Kit) 1 mg AD PRN IM HYPOGLYCEMIA PROTOCOL 01/25/25 17:00 02/24/25 16:59 Heparin Sodium (Porcine) (HEParin 5,000 UNIT VIAL) *calculation based on ACTUAL B... AD PRN IV HEPARIN PROTOCOL 01/25/25 01:30 02/24/25 01:29 01/25/25 00:33 17 UNIT Heparin Sodium/ Dextrose 250 ml @ 0 mls/hr Q6H IV 01/25/25 01:30 01/25/25 10:45 DC 01/25/25 07:30 8.1 MLS/HR Insulin Human Regular (humuLIN R 100 UNIT/ML 3ML) INSULIN SLIDING SCAL... ACHS SQ 01/25/25 11:30 02/24/25 11:29 Ipratropium [place] (AtrovENT UD) 0.5 mg [id number] IH 01/25/25 12:00 01/26/25 09:41 DC 01/26/25 05:12 0.5 MG Labetalol HCl (TRANdate 20MG SYG) 10 mg Q2H PRN IV SBP GREATER THAN 160 01/25/25 09:00 02/24/25 08:59 Lactulose (Constulose 20gm/ 30ml Udcup) 20 gm Q6H PRN PO CONSTIPATION 01/25/25 09:00 02/24/25 08:59 Magnesium Sulfate 50 ml @ 0 mls/hr PROTOCOL PRN IV mgprotocol 01/25/25 17:00 02/24/25 16:59 Midodrine (PROAMatine 5 MG TABLET) 10 mg TID PO 01/25/25 09:00 02/24/25 08:59 01/26/25 08:59 10 MG Morphine Sulfate (morPHINE 2MG SYG) 2 mg Q6H PRN IVP SEVERE PAIN (7-10) 01/26/25 14:00 02/02/25 13:59 01/26/25 14:01 2 MG Norepinephrine 250 ml @ 0 mls/hr PROTOCOL IV 01/25/25 15:30 02/24/25 15:29 Nystatin (NYSTatin 607169 UNIT/ML 5ML UDCUP) 5 ml QID PO 01/25/25 13:00 02/01/25 12:59 01/26/25 12:38 5 ML Potassium Chloride 100 ml @ 50 mls/hr AD PRN IV POTASSIUM PROTOCOL 01/25/25 17:00 02/24/25 16:59 Potassium Chloride 100 ml @ 100 mls/hr AD PRN IV POTASSIUM PROTOCOL 01/25/25 17:00 02/24/25 16:59 Potassium Chloride (K-Dur/Klor-Con 20meq) 20 meq AD PRN PO POTASSIUM PROTOCOL 01/25/25 17:00 02/24/25 16:59 Potassium Chloride (KCl 10% Elixir 20meq/15ml) 20 meq AD PRN PO POTASSIUM PROTOCOL 01/25/25 17:00 02/24/25 16:59 Sodium Chloride 1,000 ml @ 75 mls/hr [id number] IV 01/25/25 03:00 01/25/25 11:46 DC 01/25/25 02:50 75 MLS/HR Temazepam (restORIL 15 MG CAP) 15 mg HS PRN PO INSOMNIA/SLEEP 01/25/25 09:00 02/24/25 08:59 01/25/25 22:51 15 MG Vancomycin HCl 100 ml @ 50 mls/hr Q8H IV 01/26/25 21:00 02/05/25 20:59 Vancomycin HCl (Vancomycin 750mg) 750 mg Q8H IVPB 01/25/25 21:00 01/26/25 12:47 DC 01/26/25 12:39 750 MG Vancomycin HCl (Vancomycin Protocol) 1 each AD IV 01/25/25 11:30 02/08/25 11:29 DIAGNOSTICS / RADIOLOGY: [place] [address] [address] IMAGING REPORT Signed PATIENT: ABEL BHARDWAJ MR#: [id number] : 1975 SEX: M AGE: 49 LOCATION: 2DH ORDER [id number] STATUS: ADM IN REPORT#: [id number] SERVICE 112 REASON: lower back pain after fall ORDERING PHYSICIAN: BERNARD SINGH MD PROCEDURE: L SPIN WO - CT LUMBAR SPINE W/O CONTRAST EXAM: CT Lumbar Spine Without IV contrast. CLINICAL HISTORY: lower back pain after fall TECHNIQUE: Axial computed tomography images of the lumbar spine without intravenous contrast. Sagittal and coronal reformatted images were generated. COMPARISON: None provided. FINDINGS: ALIGNMENT: Bony alignment is anatomic. DISCS/DEGENERATIVE CHANGES: Anterior osteophytes and vacuum phenomena at facet joints of the L4-5 vertebrae. BONES: No acute fracture or aggressive appearing osseous lesion. SOFT TISSUES: The soft tissues are unremarkable. IMPRESSION: 1. No acute osseous injury. 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 Severe sepsis, POA with shock, Pneumonia, POA * Bilateral pneumonia noted on CT chest 01/24/2025 - Atypical viral pneumonia suspected * Infectious Disease consult has been ordered * Broad-spectrum IV antibiotics - Cefepime, Azithromycin and Vancomycin ( Day 2) * Pulmonary consultation recommended given extensive infiltrates. * procalcitonin is 2.61, LDH - 904 on 01.25.2025 * Will continue to monitor vitals, labs, and end-organ perfusion. Acute hypoxemic respiratory failure * unable to tolerate BiPAP, currently on 15 L NRB, requiring escalating oxygen support * oxygen saturation is 82% on 15 lit o2 * critical care consulted * Ipratropium/Albuterol 0.5 mg/2.5 mg via nebulizer every 6 hours as needed for shortness of breath * Dexamethasone 4 mg/mL IV for inflammation control and respiratory support * Monitor respiratory status. * Oxygen as needed to keep SpO2 equal to greater than 92. 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 The largest is in the left frontal lobe, associated with significant surrounding edema. The other three are located in the occipital region and right basal ganglia. The differentiation between daniels and white matter is otherwise preserved, as is the appearance of the basal nuclei. * Infectious disease specialist consulted * MRI brain done - the patient was not cooperative * Will continue to monitor for any new or worsening neurological signs and symptoms. Possible HIV * Positive HIV 1 and 2 antibodies (preliminary) * ordered CD4 cell count * HIV Genotype / Integrase & Retroviral Genotype Testing ordered to guide antiretroviral therapy and assess for possible resistance mutations Hypotension, responsive to midodrine and fluid bolus * IV fluid bolus of 1600 ml of 0.9 NS given * BP after the bolus is 88/57 mm hg * Started on Levophed * titrate to maintain MAP - 65 mmHg. * Blood pressure checks every 4 hours and as needed. * Ordered random serum cortisol Lower back pain, POA * pain due to fall 2 weeks ago * treated with morphine, Tylenol and lidocaine patch * Ct lumbar spine revealed no signs of acute osseous injury s/p recent right inguinal hernia repair 3 weeks ago, POA * Right inguinal surgical scar present * well-healed, no signs of infection. Acute pancreatitis, POA * Patient is npo * CT abdomen 01/24/2025 shows peripancreatic fat stranding. * Discontinued IV heparin * Continue supportive care and IV fluid hydration * Pain control as needed with iv tylenol * Lipase - 435 NSTEMI, POA * No clinical evidence of acute coronary syndrome. * 2D echocardiogram ordered * troponin 3828 on 01.26.2025 * Cardiology recommended to obtain 2D echocardiogram and will follow-up on results, and to defer statin therapy Anemia with leukopenia, POA * Likely multifactorial (sepsis, nutritional). * Hb- 8.1 , WBC - 2.9 * will trend CBC daily * iron - 32, TIBC- 80 and % Sat - 40 * ordered stool occult Hyponatremia, POA * serum sodium is 130 * Given 0.9 NS bolus * Strict I&Os. Dysphagia * Possible oral/esophageal candidiasis. * continue nystatin therapy * Monitor oral intake and swallow safety. Frailty/debility/ Failure to thrive/GBW, POA Glucose checks a.c. and HS with insulin regular sliding scale coverage as needed. Reconcile home medications once available. GI and DVT prophylaxis. Patient prognosis is guarded ATTESTATION BY PHYSICIAN I have seen and examined the patient. I reviewed the documentation, medical decision making, and treatment plan as noted by the resident provider above. I agree with the findings and plan of care. Vitaliy Olvera MD, LAKSHMI MD Jan 26, 2025 15:49
[2025-01-26] MEDS: SODIUM CHLORIDE 3% FOR INHALATION 4 ML/AMP VIAL.NEB IH ONE ×2 (18:42→23:17)
[2025-01-26] MEDS: VANCOMYCIN 500MG+NS 100ML 100 ML IV SCH (20:40)
--- NOTE | 2025-01-26 20:53 | HMCSR ---
APPROVED REPORT EXAM: Two-dimensional and M-mode echocardiogram with Doppler and color Doppler. INDICATION ICD: elevated troponin 2D Dimensions RVDd3.7 cmLVEF(%)62.2 (>50%)LVED Vol(simp.)122.5 mL IVSd0.7 (0.7-1.1cm)FS(%)34 %LVES Vol(simp.)51.3 mL LVDd4.9 (3.8-5.6cm)LA (2D)2.8 (1.6-4.0cm)LVEF(%, simp.)58 % PWd0.9 (0.7-1.1cm)Ao Root(2D)3.2 (2.0-3.7cm)LA ESV INDEX (BP)29.45 mL/m2 LVDs3.3 (2.5-4.0cm)LVOT diam2.2 (1.8-2.4cm) IVC diam1.2 cm Aortic Valve AoV Vmax1.6 m/Melanie Peak GR9.7 mmHgLVOT Vmax1.1 m/s AoV VTI0.3 mAo Mean GR5.0 mmHgLVOT VTI0.22 m CHICO (VMAX)2.53 cm2AVA (VTI) 2.6 cm2 Mitral Valve MV E Vmax57.6 cm/sDECEL Qxjl354 ms MV A Vmax35.7 cm/sP 1/2 T87 ms E/A ratio1.6MVA (PHT)2.5 cm2 TDI E/E' Medial6.9E/E' Lateral6.0 Medial E' Peak V8.30 cm/sLateral E' Peak V9.53 cm/s Pulmonary Valve PV Vmax1.0 m/sPV VTI0.23 mPV Mean GR2.4 mmHg PV Peak GR3.8 mmHg Tricuspid Valve TR Vmax2.5 m/sRVSP22.5 mmHg TR Peak GR24.2 mmHg Left Ventricle The left ventricle is normal size. There is normal LV segmental wall motion. There is normal left tesfaye tricular wall thickness. LVEF is 58%. The left ventricular diastolic function is normal. Right Ventricle The right ventricle is normal size. The right ventricular systolic function is normal. Atria The left atrium size is normal. The right atrium size is normal. Chiari network is noted in the right atrium. Aortic Valve The aortic valve is normal in structure. No aortic regurgitation is present. There is no aortic valvu lar stenosis. Mitral Valve The mitral valve is normal in structure. There is no mitral valve regurgitation noted. There is no mi tral valve stenosis. Tricuspid Valve The tricuspid valve is normal in structure. There is trace tricuspid valve regurgitation noted. Pulmonic Valve The pulmonary valve is normal in structure. There is no pulmonic valvular regurgitation. Great Vessels The aortic root is normal in size. The IVC is normal in size and collapses >50% with inspiration. Pericardium There is no pericardial effusion.
[2025-01-27] VITALS (14 sets, daily range): BP systolic 88–123; BP diastolic 54–80; PULSE 59–88; RESP 18–26; TEMP 97–98.8; O2SAT 92–95
[2025-01-27 04:38] LABS: IMMATURE GRANULOCYTE ABSOLUTE 0.02 K/uL (0-1); NUCLEATED RED BLOOD CELLS 0.0 % (0.0-0.19); PLATELET COUNT (AUTO) 171 K/uL (130-400); RED BLOOD CELL COUNT(AUTO) 2.78 MIL/uL (4.50-6.20); RED CELL DISTRIBUTION WIDTH 14.7 % (11.0-15.5); WHITE BLOOD COUNT (AUTO) 1.6 K/uL (4.8-10.8)
[2025-01-27 05:17] LABS: ASPARTATE AMINOTRANSFERASE 69.0 U/L (10-37); CREATININE 0.6 mg/dL (0.5-1.3); GLOMERULAR FILTR. RATE CALC 118.0 mL/min (>90); GLUCOSE,RANDOM 352.0 mg/dL (70-105); SODIUM SERUM 131.0 mmol/L (136-145); TOTAL PROTEIN, SERUM 5.3 g/dL (6.0-8.3); UREA NITROGEN, BLOOD 16.0 mg/dL (7-18)
--- NOTE | 2025-01-27 06:24 | HMCIMG ---
EXAM: CR Chest, 1 views. CLINICAL HISTORY: shortness of breath. COMPARISON: CR - CHEST 1VW FINDINGS: Diffuse marked consolidation is seen in both lung hernandez involving upper mid and lower zones and bilateral perihilar regions. As compared to previous scan the area of consolidation is increased. No pleural effusion or pneumothorax. The cardiomediastinal silhouette is within normal limits. No acute osseous abnormality. IMPRESSION: Diffuse marked consolidation is seen in both lung hernandez involving upper mid and lower zones and bilateral perihilar regions. As compared to previous scan the area of consolidation is increased.. /[place]
[2025-01-27 08:13] LABS: RUBEOLA (MEASLES) IGG >300.0 AU/mL (Immune >16.4)
--- NOTE | 2025-01-27 08:44 | PN ---
[facility] PROGRESS NOTE Date of Service: Jan 27, 2025 Time of Service: 08:41 SUBJECTIVE: Mr Bhardwaj is a 49-year-old male not pertinent history who is presented with [facility] for evaluation of with anorexia, fever, chills, generalized body weakness. The patient had an Right inguinal hernia three weeks ago and since then he reports he has been having complications. VS: HR 85 bpm, RR 18 bpm, BP 81/56, 99% RA, 97.9 F. Labs: Chemistry: WBC 2.9, RBC 2.71, Hgb 8.1, Hct 24.1, MPV 11.7, Urine: Specific [place] 1.038, Protein 10, Occult Blood Small, UA: Negative Nitrate, Negative Leukocyte Est, UA: RBC 6- 10, WBC 2-5, Coagulation: APTT 40.8, Chest CT: Severe diffuse airspace disease, air bronchogram, and smooth interstitial thickening bilaterally, compatible with pneumonia and pulmonary edema. There is a possibility of atypical viral pneumonia. Clinical correlation and further evaluation, and follow-up are suggested. Abdomen/Pelvis CT: Mild peripancreatic fat stranding. A small amount of fluid with mild fat stranding in the left upper quadrant at the inferior aspect of the spleen. The features concerning for acute interstitial pancreatitis. Recommend serum amylase and lipase evaluation. No other significant abnormality is visualized in the abdomen and pelvis. Groundglass opacities in the bilateral lung bases. EKG: SR, heart rate 66 bpm. In ED the patient received NS 30 mL/kilos, aspirin 325 mg, Rocephin 1 g, and was started on heparin drip. ED provider request patient be admitted with the diagnosis of NSTEMI, failure to thrive, pancreatitis, and pneumonia. The patient appeared chronically ill, weak, comfortable, breathing was even, unlabored, in no distress. 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 A nurse-assisted translation was used during the encounter. He presents with a three-week history of generalized weakness, anorexia, body aches, and dysphagia. His only active complaint is lower back pain, following a fall while attempting to get out of bed, associated with tonic-clonic movements of the left upper extremity 2 weeks ago. He reports orthostatic dizziness and a 10 lb weight loss over the past month. He denies chest pain, pressure, dyspnea, cough, or phlegm production. He denies prior myocardial infarction, coronary artery disease, diabetes, cerebrovascular accident, or bleeding disorders. Recent labs are significant for troponin trending upward (3,121 to 3,598), Procalcitonin 2.61, LDH 9.04, elevated liver enzymes (AST 113, ALP 392), and APTT 86.9. He is hemodynamically unstable, with blood pressure persistently at 7080/4050 mmHg despite IV fluid resuscitation. He has been started on norepinephrine. ID consult has been placed for further management. 01.26.2025: Patient evaluated for worsening shortness of breath and inability to tolerate BiPAP. Direct discussion held with Critical Care ENRIQUE Acosta regarding current management. Patient reports persistent dyspnea, anxiety, and discomfort with oxygen delivery devices. Lower back pain post-fall is being managed with Lidocaine patch and morphine. ENRIQUE Acosta confirmed ongoing ICU transfer, infectious disease and neurology consults, and continuation of supportive care. 01.27.2025: Patient was seen and evaluated in room 223. He reports intermittent pain in the right inguinal region at the site of his hernia repair performed 20 days ago. He describes the pain as coming and going, with an intensity of 9/10. A CT abdomen and pelvis has been ordered for further evaluation. Transfer to [facility] for neurosurgical involvement was considered, as patient requires neurosurgical care; however, transfer was declined by [facility]. REVIEW OF SYSTEMS 12-point ROS reviewed with the patient. All pertinent positives mentioned above. Otherwise negative, noncontributory, non-pertinent. PHYSICAL EXAM GENERAL APPEARANCE: The patient is chronically ill, weak, awake,and alert. NEUROLOGICAL: No sensory deficits. HEENT: Face is symmetric. Pupils are equal and reactive. Extraocular movements are intact. NECK: Supple. CHEST: Normal chest expansion. CARDIOVASCULAR: Regular. S1 and S2 normal. No appreciable rubs, murmurs or gallops. ABDOMEN: Soft, nontender, and nondistended. There is no rebound, voluntary guarding, or rigidity. : Deferred. No [place]. EXTREMITIES: Non-edematous and not cyanotic. No clubbing. Good capillary refill. SKIN: Well healed surgical scar in the right inguinal area Vital Signs (last 8hr) Date Time Temp Pulse Resp B/P (MAP) Pulse Ox O2 Delivery O2 Flow Rate FiO2 01/27/25 07:02 73 20 N/Cannula Oximizer Hi LPM 10.0 60 01/27/25 06:51 63 24 01/27/25 06:51 64 26 Non Rebreather 15.0 100 01/27/25 04:34 98.8 67 18 114/57 93 Venti Mask LABS: Laboratory: Test 01/27/25 05:32 01/27/25 03:34 01/26/25 16:20 01/26/25 12:00 Range/Units Whole Blood Glucose 161 H 70-110 MG/DL White Blood Count 1.6 L 4.8-10.8 K/uL Red Blood Count 2.78 L 4.50-6.20 MIL/uL Hemoglobin 8.4 L 14.0-18.0 g/dL Hematocrit 24.5 L 42-54 % Mean Corpuscular Volume 88.1 79-99 fL Mean Corpuscular Hemoglobin 30.2 27.0-33.0 pg Mean Corpuscular Hemoglobin Concent 34.3 32.0-36.0 g/dL Red Cell Distribution Width 14.7 11.0-15.5 % Platelet Count 171 130-400 K/uL Mean Platelet Volume 11.9 H 7.5-10.5 fL Immature Granulocyte % (Auto) 1.3 H 0-1 % Neutrophils (%) (Auto) 75.2 40.0-77.0 % Lymphocytes (%) (Auto) 20.4 L 21.0-51.0 % Monocytes (%) (Auto) 2.5 L 3.0-13.0 % Eosinophils (%) (Auto) 0.0 0.0-8.0 % Basophils (%) (Auto) 0.6 0.0-5.0 % Neutrophils # (Auto) 1.2 L 1.8-7.7 K/uL Lymphocytes # (Auto) 0.3 L 1.0-4.8 K/uL Monocytes # (Auto) 0.0 L 0.1-1.0 K/uL Eosinophils # (Auto) 0.00 0.00-0.70 K/uL Basophils # (Auto) 0.01 0.00-0.20 K/uL Absolute Immature Granulocyte (auto 0.02 0-1 K/uL Nucleated Red Blood Cells 0.0 0.0-0.19 % Sodium Level 131 L 136-145 mmol/L Potassium Level 4.1 3.5-5.1 mmol/L Chloride Level 105 101-111 mmol/L Carbon Dioxide Level 20 L 21-32 mmol/L Blood Urea Nitrogen 16 7-18 mg/dL Creatinine 0.6 0.5-1.3 mg/dL Glomerular Filtration Rate Calc 118 >90 mL/min Random Glucose 352 #H 70-105 mg/dL Lactic Acid Level 1.5 0.8-2.5 mmol/L Total Calcium 7.1 L 8.5-10.1 mg/dL Total Bilirubin 0.4 0.2-1.0 mg/dL Aspartate Amino Transf (AST/SGOT) 69 H 10-37 U/L Alanine Aminotransferase (ALT/SGPT) 33 12-78 U/L Alkaline Phosphatase 356 H 50-136 U/L C-Reactive Protein, Quantitative 124.20 H 0.5-3.0 mg/L Total Protein 5.3 L 6.0-8.3 g/dL Albumin 0.9 L 3.5-5.0 g/dL Procalcitonin 1.93 H 0.05-0.5 ng/mL Bedside Glucose Comment Notified Nurse Vancomycin Level Trough 18.8 10.0-20.0 UG/ML Rapid Plasma Reagin NONREACTIVE NONREACTIVE Rubeola (Measles) IgG Antibody >300.0 Immune >16.4 AU/mL Test 01/26/25 07:34 01/26/25 02:19 01/26/25 01:23 01/25/25 12:50 Range/Units Lipase 89 H 16-77 U/L Phosphorus Level 2.6 2.5-4.9 mg/dL Magnesium Level 1.80 1.80-2.40 mg/dL Troponin I High Sensitivity 3828 *H 4-75 ng/L B-Type Natriuretic Peptide 94 0-100 pg/mL Blood Gas Specimen Type Arterial Arterial Blood pH 7.366 7.350-7.450 Arterial Blood Partial Pressure CO2 33 L 35-48 mmHg Arterial Blood Partial Pressure O2 76.7 L 83.0-108.0 mmHg Arterial Blood HCO3 18.3 L 21.0-28.0 mmol/L Arterial Blood Oxygen Saturation 95.1 94.0-98.0 % Arterial Blood Base Excess -5.9 L -2.0-3.0 mmol/L Blood Gas Temperature 37.0 35.5-37.0 CELSIUS Blood Gas Respiration Rate 14.0 min. Blood Gas Vent Mode BIPAP 12,6 ROOM AIR FiO2 50.0 % Blood Gas Specimen Comment LB,RN RORO Prothrombin Time 11.3 9.6-11.6 SEC Prothromb Time International Ratio 1.07 0.85-1.15 Activated Partial Thromboplast Time 86.9 H 26.3-35.5 SEC Current Medications Medications (Trade) Dose Ordered Sig/Braulio Route PRN Reason Start Time Stop Time Status Last Admin Dose Admin Acetaminophen (TYLenol 325MG TAB) 650 mg Q6H PRN PO FEVER/MILD PAIN LEVEL 1-3 01/25/25 09:00 02/24/25 08:59 Acetaminophen (TYLenol 650MG SUPPOSITORY) 650 mg Q6H PRN RC FEVER / MILD PAIN 1-3 IF NPO 01/25/25 09:00 02/24/25 08:59 Acetaminophen (acetaMINOPHEN) 1,000 mg Q6H IVPB 01/25/25 11:15 02/24/25 11:14 01/27/25 05:47 1,000 MG Albuterol (DUOneb) 1 UDVIAL [id number] IH 01/26/25 12:00 02/25/25 11:59 01/27/25 06:50 1 UDVIAL Albuterol Sulfate (Proventil 0.083% 2.5mg/3ml) 2.5 mg [id number] PRN IH SHORTNESS OF BREATH 01/25/25 09:00 02/24/25 08:59 Aspirin (Aspirin 81mg Chew Tab) 81 mg DAILY PO 01/25/25 09:00 02/24/25 08:59 01/27/25 08:19 81 MG Atorvastatin Calcium (LIPItor 40MG) 40 mg HS PO 01/25/25 21:00 01/25/25 10:49 DC Azithromycin 250 ml @ 250 mls/hr Q24H IVPB 01/25/25 00:30 02/04/25 00:29 01/26/25 23:51 250 MLS/HR Cefepime HCl (MAXipime 2 gm vial) 2 gm Q12H IVPB 01/25/25 11:30 02/04/25 11:29 01/26/25 22:39 2 GM Ceftriaxone Sodium (ROCEphine 1G INJ) 1 gm Q24H IVPB 01/25/25 09:00 01/25/25 11:28 DC 01/25/25 10:45 1 GM Dexamethasone Sodium Phosphate (dexaMETHasone 4MG/ML 1ML VIAL) 6 mg Q12H IVP 01/26/25 09:30 02/25/25 09:29 01/27/25 08:19 6 MG Dextrose (D50w) 50 ml AD PRN IV HYPOGLYCEMIA PROTOCOL 01/25/25 17:00 02/24/25 16:59 01/26/25 06:19 50 ML Dextrose/Sodium Chloride 1,000 ml @ 75 mls/hr [id number] IV 01/25/25 17:00 02/24/25 16:59 01/25/25 22:30 150 MLS/HR Dextrose/Sodium Chloride 1,000 ml @ 150 mls/hr Q6H40M IV 01/25/25 12:00 01/25/25 16:35 DC 01/25/25 11:53 150 MLS/HR Docusate Sodium (COLace 100MG CAP) 100 mg BID PRN PO c 01/25/25 09:00 02/24/25 08:59 Glucagon (Glucagon 1mg Kit) 1 mg AD PRN IM HYPOGLYCEMIA PROTOCOL 01/25/25 17:00 02/24/25 16:59 Heparin Sodium (Porcine) (HEParin 5,000 UNIT VIAL) *calculation based on ACTUAL B... AD PRN IV HEPARIN PROTOCOL 01/25/25 01:30 02/24/25 01:29 01/25/25 00:33 17 UNIT Heparin Sodium/ Dextrose 250 ml @ 0 mls/hr Q6H IV 01/25/25 01:30 01/25/25 10:45 DC 01/25/25 07:30 8.1 MLS/HR Insulin Human Regular (humuLIN R 100 UNIT/ML 3ML) INSULIN SLIDING SCAL... ACHS SQ 01/25/25 11:30 02/24/25 11:29 Ipratropium Elsa (AtrovENT UD) 0.5 mg [id number] IH 01/25/25 12:00 01/26/25 09:41 DC 01/26/25 05:12 0.5 MG Labetalol HCl (TRANdate 20MG SYG) 10 mg Q2H PRN IV SBP GREATER THAN 160 01/25/25 09:00 02/24/25 08:59 Lactulose (Constulose 20gm/ 30ml Udcup) 20 gm Q6H PRN PO CONSTIPATION 01/25/25 09:00 02/24/25 08:59 Magnesium Sulfate 50 ml @ 0 mls/hr PROTOCOL PRN IV mgprotocol 01/25/25 17:00 02/24/25 16:59 Midodrine (PROAMatine 5 MG TABLET) 10 mg TID PO 01/25/25 09:00 02/24/25 08:59 01/27/25 08:19 10 MG Morphine Sulfate (morPHINE 2MG SYG) 2 mg Q6H PRN IVP SEVERE PAIN (7-10) 01/26/25 14:00 02/02/25 13:59 01/27/25 05:00 2 MG Norepinephrine 250 ml @ 0 mls/hr PROTOCOL IV 01/25/25 15:30 02/24/25 15:29 Nystatin (NYSTatin 307004 UNIT/ML 5ML UDCUP) 5 ml QID PO 01/25/25 13:00 02/01/25 12:59 01/27/25 08:19 5 ML Potassium Chloride 100 ml @ 50 mls/hr AD PRN IV POTASSIUM PROTOCOL 01/25/25 17:00 02/24/25 16:59 Potassium Chloride 100 ml @ 100 mls/hr AD PRN IV POTASSIUM PROTOCOL 01/25/25 17:00 02/24/25 16:59 Potassium Chloride (K-Dur/Klor-Con 20meq) 20 meq AD PRN PO POTASSIUM PROTOCOL 01/25/25 17:00 02/24/25 16:59 Potassium Chloride (KCl 10% Elixir 20meq/15ml) 20 meq AD PRN PO POTASSIUM PROTOCOL 01/25/25 17:00 02/24/25 16:59 Sodium Chloride 1,000 ml @ 75 mls/hr [id number] IV 01/25/25 03:00 01/25/25 11:46 DC 01/25/25 02:50 75 MLS/HR Temazepam (restORIL 15 MG CAP) 15 mg HS PRN PO INSOMNIA/SLEEP 01/25/25 09:00 02/24/25 08:59 01/25/25 22:51 15 MG Vancomycin HCl 100 ml @ 50 mls/hr Q8H IV 01/26/25 21:00 02/05/25 20:59 01/27/25 04:32 50 MLS/HR Vancomycin HCl (Vancomycin 750mg) 750 mg Q8H IVPB 01/25/25 21:00 01/26/25 12:47 DC 01/26/25 12:39 750 MG Vancomycin HCl (Vancomycin Protocol) 1 each AD IV 01/25/25 11:30 02/08/25 11:29 DIAGNOSTICS / RADIOLOGY: [ ] ASSESSMENT: Severe sepsis, POA with shock Acute hypoxemic respiratory failure 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 Severe sepsis, POA with shock, Pneumonia, POA * Bilateral pneumonia noted on CT chest 01/24/2025 - Atypical viral pneumonia suspected * Infectious Disease consulted * Broad-spectrum IV antibiotics - Cefepime, Azithromycin and Vancomycin ( Day 3) * procalcitonin is 1.93 on 01.27.2025 * Will continue to monitor vitals, labs, and end-organ perfusion. * Oxygen as needed to keep SpO2 equal to greater than 92. 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 The largest is in the left frontal lobe, associated with significant surrounding edema. The other three are located in the occipital region and right basal ganglia. The differentiation between daniels and white matter is otherwise preserved, as is the appearance of the basal nuclei. * Infectious disease specialist consulted * MRI brain - patient was not cooperative - pending report Possible HIV * Positive HIV 1 and 2 antibodies (preliminary) * ordered CD4 cell count - pending results * HIV Genotype / Integrase & Retroviral Genotype Testing ordered to guide ant iretroviral therapy and assess for possible resistance mutations Hypotension, responsive to midodrine and fluid bolus * Bp - 88/58 mm Hg on 01.27.2025 at 8am * on Midodrine 10 mg PO TID * IV fluid bolus of 1600 ml of 0.9 NS given * Started on Levophed * titrate to maintain MAP - 65 mmHg. * Blood pressure checks every 4 hours and as needed. * Ordered random serum cortisol Lower back pain, POA * pain due to fall 2 weeks ago * treated with morphine, Tylenol and lidocaine patch * Ct lumbar spine revealed no signs of acute osseous injury s/p recent right inguinal hernia repair 3 weeks ago, POA * Right inguinal surgical scar present * well-healed, no signs of infection. * Ct abdomen and pelvis ordered Acute pancreatitis, POA * Patient is npo * CT abdomen 01/24/2025 shows peripancreatic fat stranding. * Discontinued IV heparin * Continue supportive care and IV fluid hydration * Pain control as needed with iv tylenol * Lipase - 435 on 01.24.2025 to 89 on 01.26.2025 NSTEMI, POA * No clinical evidence of acute coronary syndrome. * 2D echocardiogram on 01.26.2025 demonstrated no LV wall motion abnormalities, and LVEF of 58% and no significant valvular pathology * troponin 3828 on 01.26.2025 * Defer statin therapy Anemia with leukopenia, POA * Likely multifactorial (sepsis, nutritional). * Hb- 8.4 , WBC - 1.6 * will trend CBC daily * iron - 32, TIBC- 80 and % Sat - 40 on 01.25.2025 * ordered stool occult Hyponatremia, POA * serum sodium is 131 * Given 3% NS bolus * Strict I&Os. Dysphagia * Possible oral/esophageal candidiasis. * continue nystatin therapy * Monitor oral intake and swallow safety. Frailty/debility/ Failure to thrive/GBW, POA Glucose checks a.c. and HS with insulin regular sliding scale coverage as needed. Reconcile home medications once available. GI and DVT prophylaxis. Patient prognosis is guarded ATTESTATION BY PHYSICIAN I have seen and examined the patient. I reviewed the documentation, medical decision making, and treatment plan as noted by the resident provider above. I agree with the findings and plan of care. Vitaliy Olvera MD, LAKSHMI MD Jan 27, 2025 08:43
--- NOTE | 2025-01-27 08:50 | NUR ---
TRANSFER OUT TO [facility] [place] CANCELLED PER JORDIN NUNEZ . SHARONDA ROTH
--- NOTE | 2025-01-27 08:51 | PN ---
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 His history is pertinent for his right inguinal hernia repair 12/26/2024 at a hospital in [facility]. He was discharged after a 1 day hospitalization. He was feeling weak and apparently fell when he tried to get out of bed and had tonic-clonic movement of the left upper extremity. He was taken to a hospital in [facility] on approximately 01/09/2025 and was hospitalized there for 4-5 days. He was then sent to another hospital in [facility] for CT scan of the brain and was told that he was found to have an illness from eating raw pork meat (likely cysticercosis), he does not recall undergoing any treatment and was subsequently discharged home. He has had a three-week history of anorexia, generalized body weakness, body aches and dysphagia and was brought to the ER for further evaluation. In the emergency department, he was found to be hypotensive with a blood pressure of 75/56, he was afebrile, labs were remarkable for a WBC of 2.9, hemoglobin 8.1, hematocrit of 24.1 and a platelet count of 156, sodium 132, potassium 4.7, BUN 46 and creatinine of 1.0. Lactic acid of 1.5. CK of 82 and a high sensitivity cardiac troponin of 3121, with repeat of 3099 and 3598. He was initiated on IV heparin but this was subsequently discontinued due to concern for pancreatitis. He has offered no complaints of chest pain throughout his course of illness. He has been admitted for further management of sepsis, pulmonary involvement with extensive infiltrates noted on a CT scan of the chest on admission. Has been on intermittent oxygen with 100% non-rebreather mask and nasal cannula. Primary team, pulmonology and Infectious Disease primarily managing his multiple medical problems, including workup for possible HIV. From a cardiology standpoint, he continues to deny any chest pain. He underwent a 2D echocardiogram 01/26/2025 demonstrating normal LV segmental wall motion, LVEF of 58% and no significant valvular pathology. Physical Examination: GENERAL: Thin, weak and somnolent this morning. Cachectic. HEAD: Normal with no signs of head trauma. EYES: PERRLA, EOMI, conjunctiva and sclera normal. ENT: Hearing grossly intact, smooth, red smooth tongue with white patches noted along the lateral edges. NECK: Supple without JVD. There is no tenderness, lymphadenopathy, or masses. No thyromegaly. Normal carotid upstrokes without bruits. LUNGS: Trace crackles at the bases, but essentially clear HEART: Normal rate and rhythm. Normal S1 and S2 without murmurs, gallop or rub. VASC: Peripheral pulses +2 bilaterally. Trace pedal edema ABD: Thin abdomen, Bowel sounds normal, soft, nontender, no masses, no organomegaly. No audible bruits. EXT: There is a healing wound to the right groin, no masses, no evidence of infection. Lower extremities demonstrate No clubbing, cyanosis, there is a trace of pedal edema. SKIN: Lower extremity areas of excoriation noted. NEURO: Awake, alert, and oriented x3. Generalized weakness noted but is able to move extremities with weakness Laboratory: Hematology Labs: Test 01/27/25 03:34 Range/Units White Blood Count 1.6 L 4.8-10.8 K/uL Red Blood Count 2.78 L 4.50-6.20 MIL/uL Hemoglobin 8.4 L 14.0-18.0 g/dL Hematocrit 24.5 L 42-54 % Mean Corpuscular Volume 88.1 79-99 fL Mean Corpuscular Hemoglobin 30.2 27.0-33.0 pg Mean Corpuscular Hemoglobin Concent 34.3 32.0-36.0 g/dL Red Cell Distribution Width 14.7 11.0-15.5 % Platelet Count 171 130-400 K/uL Mean Platelet Volume 11.9 H 7.5-10.5 fL Immature Granulocyte % (Auto) 1.3 H 0-1 % Neutrophils (%) (Auto) 75.2 40.0-77.0 % Lymphocytes (%) (Auto) 20.4 L 21.0-51.0 % Monocytes (%) (Auto) 2.5 L 3.0-13.0 % Eosinophils (%) (Auto) 0.0 0.0-8.0 % Basophils (%) (Auto) 0.6 0.0-5.0 % Neutrophils # (Auto) 1.2 L 1.8-7.7 K/uL Lymphocytes # (Auto) 0.3 L 1.0-4.8 K/uL Monocytes # (Auto) 0.0 L 0.1-1.0 K/uL Eosinophils # (Auto) 0.00 0.00-0.70 K/uL Basophils # (Auto) 0.01 0.00-0.20 K/uL Absolute Immature Granulocyte (auto 0.02 0-1 K/uL Nucleated Red Blood Cells 0.0 0.0-0.19 % Chemistry Labs: Test 01/27/25 05:32 01/27/25 03:34 01/26/25 16:20 01/26/25 07:34 Range/Units Whole Blood Glucose 161 H 70-110 MG/DL Sodium Level 131 L 136-145 mmol/L Potassium Level 4.1 3.5-5.1 mmol/L Chloride Level 105 101-111 mmol/L Carbon Dioxide Level 20 L 21-32 mmol/L Blood Urea Nitrogen 16 7-18 mg/dL Creatinine 0.6 0.5-1.3 mg/dL Glomerular Filtration Rate Calc 118 >90 mL/min Random Glucose 352 #H 70-105 mg/dL Lactic Acid Level 1.5 0.8-2.5 mmol/L Total Calcium 7.1 L 8.5-10.1 mg/dL Total Bilirubin 0.4 0.2-1.0 mg/dL Aspartate Amino Transf (AST/SGOT) 69 H 10-37 U/L Alanine Aminotransferase (ALT/SGPT) 33 12-78 U/L Alkaline Phosphatase 356 H 50-136 U/L C-Reactive Protein, Quantitative 124.20 H 0.5-3.0 mg/L Total Protein 5.3 L 6.0-8.3 g/dL Albumin 0.9 L 3.5-5.0 g/dL Procalcitonin 1.93 H 0.05-0.5 ng/mL Bedside Glucose Comment Notified Nurse Lipase 89 H 16-77 U/L Test 01/26/25 02:19 Range/Units Phosphorus Level 2.6 2.5-4.9 mg/dL Magnesium Level 1.80 1.80-2.40 mg/dL Troponin I High Sensitivity 3828 *H 4-75 ng/L B-Type Natriuretic Peptide 94 0-100 pg/mL Coagulation Labs: Test 01/25/25 12:50 Range/Units Prothrombin Time 11.3 9.6-11.6 SEC Prothromb Time International Ratio 1.07 0.85-1.15 Activated Partial Thromboplast Time 86.9 H 26.3-35.5 SEC Diagnostics / Radiology: 2D echocardiogram 01/26/2025 demonstrated no LV wall motion abnormalities, an LV EF of 58% and no significant valvular pathology Impression and Plan: Troponin elevation, with no evidence of acute coronary syndrome, in the setting of hypotension and sepsis: No clinical evidence of acute coronary syndrome: No LV wall motion abnormalities and normal LVEF of 58% on 2D echocardiogram 01/26/2025: -continue aspirin -no plans for any further cardiac workup -cardiology will sign off and re-evaluate upon request if any acute cardiac issues arise Sepsis, likely related to pneumonia: Bilateral pneumonia by CT scan of the chest 01/24/2025: -continue broad-spectrum antibiotics as per primary -extensive infiltrates in an asymptomatic patient (no cough, dyspnea, hypoxemia) is unusual -management per Pulmonary and primary team Positive HIV 1 and 2 antibodies (preliminary): -defer further evaluation to primary and Infectious Disease Concern for pancreatitis with peripancreatic fat stranding on CT scan of the abdomen 01/24/2025: -discontinue IV heparin -continue supportive care and IV fluid hydration Anemia with neutropenia, uncertain etiology: -may be related to sepsis -trend CBC Volume depletion: -continue IV fluid hydration Dysphagia: -possible candidiasis -continue nystatin therapy Disposition: -cardiology will sign off and re-evaluate upon request if any acute cardiac issues arise PHYSICIAN ATTESTATION OF PHYSICIAN CRUST SORTER DOCUMENTATION: I attest that I was physically present for the galvin portions of the service and evaluated the patient with the Physician Water Plant Operator, and I reviewed and discussed the case with the Physician Water Plant Operator and made modifications to the Physician Water Plant Operator's findings and plans of care as documented above KEON ALY Jan 27, 2025 08:51 KIRIT BARTLETT MD Jan 27, 2025 16:01
--- NOTE | 2025-01-27 09:00 | NUR ---
PATIENT WENT TO CT VIA TRANSPORT BY RADIOLOGY. NO DISTRESS NOTED AND NO DISCOMFORT VERBALIZED. REPORT GIVEN TO THUY WALKER RN AND CARE ENDORSED.
--- NOTE | 2025-01-27 09:50 | NUR ---
RECEIVED REPORT FROM GONZLAEZ WOODS. INITIATED IV FLUIDS D5NS AT 75 CC/HR. DENIES PAIN AT THIS TIME. CT ABD/PELVIS COMPLETED.
[2025-01-27] MEDS: 0.9%NACL 1000ML 1,000 ML IV SCH (13:30)
[2025-01-27 14:12] LABS: ABSOLUTE CD4 COUNT 12 /uL (359-1519); LYMPHS % FOR CD4 COUNT 23 % (Not Estab.); LYMPHS ABS FOR CD4 COUNT 0.8 x10E3/uL (0.7-3.1); PERCENT CD4 CELLS 1.5 % (30.8-58.5); WBC FOR CD4 COUNT 3.3 x10E3/uL (3.4-10.8)
[2025-01-27] MEDS ORDERED: PHARMACY COMMUNICATION MISC SCH (14:30)
[2025-01-27] MEDS: BACTRIM 800MG/160MG 10ML VIAL 320 MG in DEXTROSE 5%-WATER 500 ML IV SCH (15:07)
[2025-01-27 15:22] LABS: HEPATITIS A IGM ANTIBODY Non-Reactive (Nonreactive); HEPATITIS B CORE IGM ANTIBODY Non-Reactive (Negative)
[2025-01-27 17:12] LABS: HIV SCREEN 4TH GENERATION Preliminary Reactive (Non Reactive)
--- NOTE | 2025-01-27 17:49 | PN ---
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 Currently on non-rebreather. Saturations 94%. Patient reports less shortness of breath, no chest pain. Talking with family friend at bedside. Nursing reports no acute events overnight. No seizures. Afebrile. Plan: Attempting to confirm home medications. There is a question whether patient was on any antiseizure medications. Follow cardiology recs Follow Infectious Disease recommendations, Pending MRI results Echo EF of 58% Follow cultures, antibiotics Patient will require a bronchoscopy. If patient further declines we will perform while patient is intubated. Currently too unstable and is not recommended. Follow sputum cultures REVIEW OF SYSTEMS: 12 point ROS reviewed with patient. Pertinent positives mentioned above. Otherwise negative. PHYSICAL EXAM: GENERAL: alert, weak, awake oriented x 3 HEENT: EOMI, Sclera non icteric, moist mucosa NECK: Supple, no JVD, trachea midline LUNGS: Clear breath sounds bilaterally. No wheezes HEART: Regular rate and rhythm. Normal S1 and S2, without murmurs ABD: Abdomen soft, nontender. Bowel sounds present EXT: No clubbing cyanosis or edema NEURO: Alert and oriented to person, follows commands Vital Signs (last 8hr) Date Time Temp Pulse Resp B/P (MAP) Pulse Ox O2 Delivery O2 Flow Rate FiO2 01/27/25 16:00 98.6 59 20 123/80 96 N/C High Flow System 10.0 01/27/25 11:40 97.9 67 20 98/54 93 N/C High Flow System 10.0 01/27/25 11:25 83 24 01/27/25 11:24 83 20 N/Cannula Oximizer Hi LPM 10.0 60 LABS: Hematology Labs: Test 01/27/25 03:34 Range/Units White Blood Count 1.6 L 4.8-10.8 K/uL Red Blood Count 2.78 L 4.50-6.20 MIL/uL Hemoglobin 8.4 L 14.0-18.0 g/dL Hematocrit 24.5 L 42-54 % Mean Corpuscular Volume 88.1 79-99 fL Mean Corpuscular Hemoglobin 30.2 27.0-33.0 pg Mean Corpuscular Hemoglobin Concent 34.3 32.0-36.0 g/dL Red Cell Distribution Width 14.7 11.0-15.5 % Platelet Count 171 130-400 K/uL Mean Platelet Volume 11.9 H 7.5-10.5 fL Immature Granulocyte % (Auto) 1.3 H 0-1 % Neutrophils (%) (Auto) 75.2 40.0-77.0 % Lymphocytes (%) (Auto) 20.4 L 21.0-51.0 % Monocytes (%) (Auto) 2.5 L 3.0-13.0 % Eosinophils (%) (Auto) 0.0 0.0-8.0 % Basophils (%) (Auto) 0.6 0.0-5.0 % Neutrophils # (Auto) 1.2 L 1.8-7.7 K/uL Lymphocytes # (Auto) 0.3 L 1.0-4.8 K/uL Monocytes # (Auto) 0.0 L 0.1-1.0 K/uL Eosinophils # (Auto) 0.00 0.00-0.70 K/uL Basophils # (Auto) 0.01 0.00-0.20 K/uL Absolute Immature Granulocyte (auto 0.02 0-1 K/uL Nucleated Red Blood Cells 0.0 0.0-0.19 % Chemistry Labs: Test 01/27/25 16:27 01/27/25 03:34 01/26/25 16:20 01/26/25 07:34 Range/Units Whole Blood Glucose 202 H 70-110 MG/DL Sodium Level 131 L 136-145 mmol/L Potassium Level 4.1 3.5-5.1 mmol/L Chloride Level 105 101-111 mmol/L Carbon Dioxide Level 20 L 21-32 mmol/L Blood Urea Nitrogen 16 7-18 mg/dL Creatinine 0.6 0.5-1.3 mg/dL Glomerular Filtration Rate Calc 118 >90 mL/min Random Glucose 352 #H 70-105 mg/dL Lactic Acid Level 1.5 0.8-2.5 mmol/L Total Calcium 7.1 L 8.5-10.1 mg/dL Total Bilirubin 0.4 0.2-1.0 mg/dL Aspartate Amino Transf (AST/SGOT) 69 H 10-37 U/L Alanine Aminotransferase (ALT/SGPT) 33 12-78 U/L Alkaline Phosphatase 356 H 50-136 U/L C-Reactive Protein, Quantitative 124.20 H 0.5-3.0 mg/L Total Protein 5.3 L 6.0-8.3 g/dL Albumin 0.9 L 3.5-5.0 g/dL Procalcitonin 1.93 H 0.05-0.5 ng/mL Bedside Glucose Comment Notified Nurse Lipase 89 H 16-77 U/L Cortisol AM Sample 29.9 H 6.2-19.4 ug/dL Test 01/26/25 02:19 Range/Units Phosphorus Level 2.6 2.5-4.9 mg/dL Magnesium Level 1.80 1.80-2.40 mg/dL Troponin I High Sensitivity 3828 *H 4-75 ng/L B-Type Natriuretic Peptide 94 0-100 pg/mL DIAGNOSTICS / RADIOLOGY RESULTS: [ ] PLAN NEURO: Minimize central acting medications as possible. Fall Precautions. Well lighted room through the day and minimize interruptions through the night to prevent acute delirium. PULMONARY: Supplemental 02 as needed Titrate Fio2 to keep Spo2 > or = 90% DuoNebs and CPT as needed IS hourly while awake for pulmonary hygiene Out of bed to chair as tolerated VAP Bundle Vent/BIPAP Settings: [ ] Driving pressure: [ ] P Plat: [ ] Static C: [ ] Static R: [ ] P/F Ratio: [ ] CARDIOVASCULAR: Follow hemodynamics. Titrate vasopressor to keep MAP >65 or systolic blood pressure >95mmHg DIPS: [ ] LINES: [ ] GI & NUTRITION: Continue nutritional support Aspirations precautions Prokinetic agents and laxatives as needed KIDNEYS & ELECTROLYTES: Strict monitoring of intake and output Daily weights Avoid nephrotoxic agents Monitor electrolytes and replace as needed Goal urine output of 30mL/hr or 0.5mL/kg/hr Urine output: [ ] Fluid Balance: [ ] ENDOCRINE: Maintain blood glucose between 100-180 at all times. Insulin sliding scale for blood glucose management INFECTIOUS DISEASE: Trend temperature. Johnson-culture if febrile. Micro: [ ] Antibiotics: [ ] HEMATOLOGY & COAGULATION: Monitor H&H. Keep Hgb > 7 Transfuse 1 unit of PRBC for Hgb < 7 Transfuse 1 pack of platelets of platelets < 20, 000 Watch for any signs and symptoms of bleeding SKIN: Pressure ulcer prevention per facility protocol Rehab: PT/OT Prophylaxis: GI: [ ] DVT: [ ] Code Status: Full Resuscitation Disposition: [ ] Other: Total critical care time spent 71 minutes or greater. This excludes any procedures or educational time Case was discussed with my supervising physician. The above plan was formulated and agreed upon. LYUDMILA QUESADA Jan 27, 2025 17:49
--- NOTE | 2025-01-27 18:13 | PN ---
INFECTIOUS DISEASE FOLLOWUP NOTE DATE OF SERVICE: 01/27/2025. SUBJECTIVE: The patient is seen and examined at bedside. Has some cough. Remains on oxygen for shortness of breath. No chest pain, denied palpitations. No diarrhea, no abdominal pain. Brain MRI has been done, but yet to be officially reported, but review of MRI shows a lesion in the right cerebrum. PHYSICAL EXAMINATION: GENERAL: A young male, ill looking. VITAL SIGNS: Temperature 98.9. EYES: No icterus. Pupils equal and reactive. HENT: There is oral thrush. NECK: Supple. No JVD or thyromegaly. LUNGS: Diffuse crackles bilaterally. No rhonchi. CARDIOVASCULAR: S1, S2, regular. Tachycardic. No murmur heard. ABDOMEN: Full, soft, nontender. Bowel sound is present. CENTRAL NERVOUS SYSTEM: Awake, alert, oriented x 3. No focal deficits. SKIN: No rashes, no itchiness. LYMPHATIC: No peripheral lymphadenopathy. BACK: No deformity, no pressure ulcer. MUSCULOSKELETAL: No joint swelling, erythema, or tenderness. ASSESSMENT: A 49-year-old male admitted with weakness. CURRENT PROBLEMS: Include: * HIV/AIDS. * Possible PCP pneumonia. * Hypoxic respiratory failure. * Leukopenia. * . * Oral candidiasis. 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 PLAN: * Discontinue vancomycin. * Continue azithromycin. * Start the patient on Bactrim. * Continue cefepime. * Follow up MRI results. * Continue . * Continue oxygen. * Continue Solu-Medrol. * The patient will be followed up closely. Thank you for allowing me to participate in the care of this patient. TID: [id number] RECEIPT: [id number]
[2025-01-27] MEDS ORDERED: COMPOUND IV MISC 1 EACH IVSOLN MISC PRN (18:30)
[2025-01-27] MEDS: leveTIRACEtam 500 MG/5 ML SD V 500 MG in 0.9%NACL 100ML 100 ML IV SCH (19:54)
[2025-01-28] VITALS (10 sets, daily range): BP systolic 97–139; BP diastolic 59–87; PULSE 67–117; RESP 18–24; TEMP 96.4–97.7; O2SAT 93–96
[2025-01-28 04:39] LABS: IMMATURE GRANULOCYTE ABSOLUTE 0.03 K/uL (0-1); NUCLEATED RED BLOOD CELLS 0.0 % (0.0-0.19); PLATELET COUNT (AUTO) 199 K/uL (130-400); RED BLOOD CELL COUNT(AUTO) 2.76 MIL/uL (4.50-6.20); RED CELL DISTRIBUTION WIDTH 15.1 % (11.0-15.5)
[2025-01-28 04:47] LABS: WHITE BLOOD COUNT (AUTO) 0.6 K/uL (4.8-10.8)
[2025-01-28 05:12] LABS: CREATININE 0.6 mg/dL (0.5-1.3); GLOMERULAR FILTR. RATE CALC 118.0 mL/min (>90); GLUCOSE,RANDOM 196.0 mg/dL (70-105); SODIUM SERUM 130.0 mmol/L (136-145); UREA NITROGEN, BLOOD 17.0 mg/dL (7-18)
[2025-01-28 05:21] LABS: EOSINOPHILS % (MANUAL) 2 % (1-6); LYMPHOCYTES % (MANUAL) 15 % (22-44); MAN.DIFF COMMENT-IMPRESSION MANUAL DIFFERENTIAL; MONOCYTES % (MANUAL) 5 % (2-9); MYELOCYTES % 5 % (0-0); SEGMENTED NEUTROPHILS % 73 % (40-70)
[2025-01-28 05:23] LABS: PLATELET MORPHOLOGY COMMENT ADEQUATE
--- NOTE | 2025-01-28 06:23 | HMCIMG ---
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 TECHNIQUE: Multiplanar multi-sequence MRI of the brain. CONTRAST: None. COMPARISON: None provided. FINDINGS: Suboptimal evaluation due to the motion artifacts. There are multiple T1 and T2 hyperintense cystic and nodular lesions with GRE blooming, peripheral diffusion restriction and a few scattered nodular areas of diffusion restriction within the bilateral cerebral and cerebellar hemispheres, involving the cortical, subcortical, periventricular region, right basal ganglia region, and left paramedian pericallosal region, the largest lesion in the right occipital region measures about 1.7 x 2.1 cm. Perilesional edema in some of the lesions, and some lesions show heterogeneous T2 hypointensities. Mildly effaced right lateral ventricle. No hydrocephalus. No abnormal extra-axial fluid collection is present. The marrow signal within the skull base and calvarium is intact. The paranasal sinuses and mastoid air cells are clear. IMPRESSION: There are multiple hemorrhagic and nonhemorrhagic cystic and nodular lesions with perilesional edema, GRE blooming, peripheral diffusion restriction, and scattered nodular diffusion restriction within the supra and infratentorial brain. The differentials could be metastasis, fungal granulomas, neurocysticercosis, developing brain abscesses, or demyelinating disorder. Recommend a repeat MRI of the brain without and with contrast for an optimal evaluation; the patient can be sedated during the scan to avoid motion artifact. /Gilman
--- NOTE | 2025-01-28 10:34 | PN ---
[facility] PROGRESS NOTE Date Patient Seen: Jan 28, 2025 Time of Visit: 10:27 Supervising Physician: Dr CHILDRESS Primary Care Physician: [ ] Outpatient Specialists: [ ] Inpatient Consults: ID PROBLEM LIST: HIV/AIDS. Possible PCP pneumonia. Acute Hypoxic respiratory failure. Leukopenia. Oral candidiasis. 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 Seizures NSTEMI II, Recent Sx Hx : Right inguinal hernia repair 12/26/2024 Prior left inguinal hernia repair Cholecystectomy INTERVAL HISTORY: Patient was seen and examined, patient appears more comfortable. Patient on 15 L, saturating mid 90s, we are pending today's chest x-ray. Patient more lethargic, follows simple commands Afebrile No acute events overnight. MRI revealing multiple hemorrhagic and nonhemorrhagic cyst/nodular lesions Echocardiogram EF of 58% Lengthy discussion multiple friends and family members at bedside. Updated to patient's status. Plan: Following cardiology recs Follow Infectious Disease recommendations, currently on cefepime, azithromycin and Bactrim. Following cultures Currently on neutropenic isolation Patient will require a bronchoscopy. If patient further declines we will pe rform while patient is intubated. Currently too unstable and is not recommended. Follow sputum cultures REVIEW OF SYSTEMS: 12 point ROS reviewed with patient. Pertinent positives mentioned above. Otherwise negative. PHYSICAL EXAM: GENERAL: alert, weak, awake oriented x 3 HEENT: EOMI, Sclera non icteric, moist mucosa NECK: Supple, no JVD, trachea midline LUNGS: Clear breath sounds bilaterally. No wheezes HEART: Regular rate and rhythm. Normal S1 and S2, without murmurs ABD: Abdomen soft, nontender. Bowel sounds present EXT: No clubbing cyanosis or edema NEURO: Alert and oriented to person, follows commands Vital Signs (last 8hr) Date Time Temp Pulse Resp B/P (MAP) Pulse Ox O2 Delivery O2 Flow Rate FiO2 01/28/25 07:51 97.7 117 20 97/59 95 Nonrebreathing Mask 15.0 01/28/25 07:27 95 22 01/28/25 07:26 71 20 N/Cannula Oximizer Hi LPM 15.0 100 01/28/25 03:13 96.8 83 18 102/67 95 Nonrebreathing Mask 15.0 LABS: Hematology Labs: Test 01/28/25 04:15 Range/Units White Blood Count 0.6 *L 4.8-10.8 K/uL Red Blood Count 2.76 L 4.50-6.20 MIL/uL Hemoglobin 8.3 L 14.0-18.0 g/dL Hematocrit 24.1 L 42-54 % Mean Corpuscular Volume 87.3 79-99 fL Mean Corpuscular Hemoglobin 30.1 27.0-33.0 pg Mean Corpuscular Hemoglobin Concent 34.4 32.0-36.0 g/dL Red Cell Distribution Width 15.1 11.0-15.5 % Platelet Count 199 130-400 K/uL Mean Platelet Volume 11.3 H 7.5-10.5 fL Immature Granulocyte % (Auto) 5.1 H 0-1 % Neutrophils (%) (Auto) 67.8 40.0-77.0 % Lymphocytes (%) (Auto) 23.7 21.0-51.0 % Monocytes (%) (Auto) 3.4 3.0-13.0 % Eosinophils (%) (Auto) 0.0 0.0-8.0 % Basophils (%) (Auto) 0.0 0.0-5.0 % Neutrophils # (Auto) 0.4 L 1.8-7.7 K/uL Lymphocytes # (Auto) 0.1 L 1.0-4.8 K/uL Monocytes # (Auto) 0.0 L 0.1-1.0 K/uL Eosinophils # (Auto) 0.00 0.00-0.70 K/uL Basophils # (Auto) 0.00 0.00-0.20 K/uL Absolute Immature Granulocyte (auto 0.03 0-1 K/uL Segmented Neutrophils % 73 H 40-70 % Lymphocytes % (Manual) 15 L 22-44 % Monocytes % (Manual) 5 2-9 % Eosinophils % (Manual) 2 1-6 % Myelocytes % 5 H 0-0 % Nucleated Red Blood Cells 0.0 0.0-0.19 % Differential Comment MANUAL DIFFERENTIAL White Cell Morphology Comment See comments Platelet Morphology Comment ADEQUATE Red Blood Cell Morphology See comments Chemistry Labs: Test 01/28/25 05:36 01/28/25 04:15 01/27/25 03:34 01/26/25 16:20 Range/Units Whole Blood Glucose 187 H 70-110 MG/DL Sodium Level 130 L 136-145 mmol/L Potassium Level 4.1 3.5-5.1 mmol/L Chloride Level 103 101-111 mmol/L Carbon Dioxide Level 20 L 21-32 mmol/L Blood Urea Nitrogen 17 7-18 mg/dL Creatinine 0.6 0.5-1.3 mg/dL Glomerular Filtration Rate Calc 118 >90 mL/min Random Glucose 196 H 70-105 mg/dL Total Calcium 7.3 L 8.5-10.1 mg/dL C-Reactive Protein, Quantitative 51.80 H 0.5-3.0 mg/L Procalcitonin 1.34 H 0.05-0.5 ng/mL Lactic Acid Level 1.5 0.8-2.5 mmol/L Total Bilirubin 0.4 0.2-1.0 mg/dL Aspartate Amino Transf (AST/SGOT) 69 H 10-37 U/L Alanine Aminotransferase (ALT/SGPT) 33 12-78 U/L Alkaline Phosphatase 356 H 50-136 U/L Total Protein 5.3 L 6.0-8.3 g/dL Albumin 0.9 L 3.5-5.0 g/dL Bedside Glucose Comment Notified Nurse DIAGNOSTICS / RADIOLOGY RESULTS: [ ] PLAN NEURO: Minimize central acting medications as possible. Fall Precautions. Well lighted room through the day and minimize interruptions through the night to prevent acute delirium. PULMONARY: Supplemental 02 as needed Titrate Fio2 to keep Spo2 > or = 90% DuoNebs and CPT as needed IS hourly while awake for pulmonary hygiene Out of bed to chair as tolerated VAP Bundle Vent/BIPAP Settings: [ ] Driving pressure: [ ] P Plat: [ ] Static C: [ ] Static R: [ ] P/F Ratio: [ ] CARDIOVASCULAR: Follow hemodynamics. Titrate vasopressor to keep MAP >65 or systolic blood pressure >95mmHg DIPS: [ ] LINES: [ ] GI & NUTRITION: Continue nutritional support Aspirations precautions Prokinetic agents and laxatives as needed KIDNEYS & ELECTROLYTES: Strict monitoring of intake and output Daily weights Avoid nephrotoxic agents Monitor electrolytes and replace as needed Goal urine output of 30mL/hr or 0.5mL/kg/hr Urine output: [ ] Fluid Balance: [ ] ENDOCRINE: Maintain blood glucose between 100-180 at all times. Insulin sliding scale for blood glucose management INFECTIOUS DISEASE: Trend temperature. Johnson-culture if febrile. Micro: [ ] Antibiotics: [ ] HEMATOLOGY & COAGULATION: Monitor H&H. Keep Hgb > 7 Transfuse 1 unit of PRBC for Hgb < 7 Transfuse 1 pack of platelets of platelets < 20, 000 Watch for any signs and symptoms of bleeding SKIN: Pressure ulcer prevention per facility protocol Rehab: PT/OT Prophylaxis: GI: [ ] DVT: [ ] Code Status: Full Resuscitation Disposition: [ ] Other: Total critical care time spent 64 minutes or greater. This excludes any procedures or educational time Case was discussed with my supervising physician. The above plan was formulated and agreed upon. LYUDMILA QUESADA Jan 28, 2025 10:34
--- NOTE | 2025-01-28 11:40 | HMCIMG ---
CT ABDOMEN/PELVIS W/O CONTRAST REASON: right inguinal pain ( s/p right inguinal hernia repair) COMPARISON: None. FINDINGS: Lung bases demonstrate bilateral lower lung infiltrate with small bilateral pleural effusion.. The heart and pericardium appears to be normal. There are no focal liver lesions. There are normal-appearing kidneys.. Spleen and pancreas appear unremarkable. The gallbladder is not visualized suggesting is surgically absent.. Bowel loops appear unremarkable. This includes normal appearance of the appendix There is no evidence of free fluid or intraperitoneal air. There are no focal fluid collections. Aorta and retroperitoneum appear normal as do pelvic soft tissue structures. The anterior abdominal wall is intact. Osseous structures appear unremarkable. There is mild subcutaneous fat stranding suggesting of possible anasarca. The right inguinal region demonstrate no abnormality. IMPRESSION: 1. Bilateral lower lung infiltrate with small bilateral pleural effusion.. 2. Mild subcutaneous fat stranding suggesting early anasarca. CT was performed with one or more following dose reduction techniques: automated exposure control, adjustment of the mA and kv according to patient's size, or use of a iterative reconstruction technique.
--- NOTE | 2025-01-28 13:49 | CONS ---
CONSULT NOTE: Mr Bhardwaj is a 49-year-old male not pertinent history who is presented with [facility] for evaluation of with anorexia, fever, chills, generalized body weakness. The patient had an appendectomy three weeks ago and since then he reports he has been having complications. VS: HR 85 bpm, RR 18 bpm, BP 81/56, 99% RA, 97.9 F. Labs: Chemistry: WBC 2.9, RBC 2.71, Hgb 8.1, Hct 24.1, MPV 11.7, Urine: Specific [place] 1.038, Protein 10, Occult Blood Small, UA: Negative Nitrate, Negative Leukocyte Est, UA: RBC 6- 10, WBC 2-5, Coagulation: APTT 40.8, Chest CT: Severe diffuse airspace disease, air bronchogram, and smooth interstitial thickening bilaterally, compatible with pneumonia and pulmonary edema. There is a possibility of atypical viral pneumonia. Clinical correlation and further evaluation, and follow-up are suggested. Abdomen/Pelvis CT: Mild peripancreatic fat stranding. A small amount of fluid with mild fat stranding in the left upper quadrant at the inferior aspect of the spleen. The features concerning for acute interstitial pancreatitis. Recommend serum amylase and lipase evaluation. No other significant abnormality is visualized in the abdomen and pelvis. Groundglass opacities in the bilateral lung bases. EKG: SR, heart rate 66 bpm. Patient with significant failure to thrive. All the information was collected from family member and nurses and previous chart. Patient with significant sepsis. This patient look like maybe having HIV infection with the patient not receiving any treatment REVIEW OF SYSTEMS 12-point ROS reviewed with the patient. All pertinent positives mentioned above. Otherwise negative, noncontributory, non-pertinent. PAST MEDICAL HISTORY: As mentioned above PAST SURGICAL HISTORY: Appendectomy,cholecystectomy PAST SOCIAL HISTORY: Patient denies alcohol, tobacco, illicit drug use. FAMILY HISTORY: Noncontributory Coded Allergies: No Known Drug Allergies (Unverified Allergy, Unknown, 01/24/25) PHYSICAL EXAM GENERAL APPEARANCE: The patient is chronically ill, weak, awake, alert, and oriented, in no acute cardiopulmonary distress. NEUROLOGICAL: Cranial nerves II-XII grossly intact. Motor is 5/5 in bilateral upper and lower extremities proximal to distal. No sensory deficits. HEENT: Face is symmetric. Pupils are equal and reactive. Extraocular movements are intact. NECK: Supple. No JVD. No thyromegaly. No submental, submandibular, pre- /postauricular, occipital or supraclavicular lymphadenopathy. CHEST: Normal chest expansion. No Telemetry. LUNGS: Absence of any rales, rhonchi or any wheezing. CARDIOVASCULAR: Regular. S1 and S2 normal. No appreciable rubs, murmurs or gallops. ABDOMEN: Soft, nontender, and nondistended. There is no rebound, voluntary guarding, or rigidity. : Deferred. No [place]. EXTREMITIES: Non-edematous and not cyanotic. No clubbing. Good capillary refill. SKIN: No skin breakdown. Assessment 1. Neutropenia 2. Anemia 3. Possibility of HIV 4. Severe sepsis 6. Hypotension 7. Status post recent appendicitis 3 weeks ago 7. Pneumonia 9. Elevated liver enzyme 10. Change mental status with severe failure to thrive Plan 1. Peripheral blood smear showed red blood cells to be normocytic normochromic. There was no fragment cell or schistocyte. There is no teardrop cell. There is no rouleaux phenomena. There is no pelger-Huet cell. White blood cell with no blasts. There is decrease in the number of the white blood cell count. Platelet count actually is normal to increase in manual number. Platelet was normal in morphology and count. 2. There was hypersegmented neutrophils. This patient to be started on folic acid 1 mg p.o. daily and vitamin B12 1000 mcg p.o. daily. 3. There is no blast to be done. There is no need for bone marrow biopsy at this time. This patient could have pancytopenia most likely due to his HIV infection. This patient need to be seen by infectious disease specialist 4. This patient need to be started on Granix 300 mcg subcu daily 5. CBC daily 6. Continue antibiotic treatment as per primary YAKOV FITZPATRICK MD Jan 28, 2025 13:49
[2025-01-28] MEDS: BACTRIM 800MG/160MG 10ML VIAL 320 MG in DEXTROSE 5%-WATER 500 ML IV SCH (17:54)
--- NOTE | 2025-01-28 17:58 | NUR ---
Portable O2/DC AMA Received call from primary nurse that pt/family wanted to leave AMA however are in need for portable O2. [facility] pt is currently on NRB @ 15l/nc and was unable to tolerate at 10L/min earlier. She was informed that a portable O2 tank would not be sufficient to get [place] to [place]. They are adamant about taking pt home today. Discussed w EVA [place]roy. Pt wants to go to [place] to see his mother. Offered to provided a letter to pt's mother and see if [place] Customs and Immigration would allow pt's mother to cross over to the [place] however they did not seem open to this idea. After several mins. sister in law Lou states that pt's brother/family is working on obtaining an ambulance to come get pt and take him back to [place] and wish to leave AMA and are aware of risks.
--- NOTE | 2025-01-28 18:06 | PN ---
[facility] PROGRESS NOTE Date of Service: Jan 28, 2025 Time of Service: 17:34 SUBJECTIVE: Mr Bhardwaj is a 49-year-old male not pertinent history who is presented with [facility] for evaluation of with anorexia, fever, chills, generalized body weakness. The patient had an Right inguinal hernia three weeks ago and since then he reports he has been having complications. VS: HR 85 bpm, RR 18 bpm, BP 81/56, 99% RA, 97.9 F. Labs: Chemistry: WBC 2.9, RBC 2.71, Hgb 8.1, Hct 24.1, MPV 11.7, Urine: Specific [place] 1.038, Protein 10, Occult Blood Small, UA: Negative Nitrate, Negative Leukocyte Est, UA: RBC 6- 10, WBC 2-5, Coagulation: APTT 40.8, Chest CT: Severe diffuse airspace disease, air bronchogram, and smooth interstitial thickening bilaterally, compatible with pneumonia and pulmonary edema. There is a possibility of atypical viral pneumonia. Clinical correlation and further evaluation, and follow-up are suggested. Abdomen/Pelvis CT: Mild peripancreatic fat stranding. A small amount of fluid with mild fat stranding in the left upper quadrant at the inferior aspect of the spleen. The features concerning for acute interstitial pancreatitis. Recommend serum amylase and lipase evaluation. No other significant abnormality is visualized in the abdomen and pelvis. Groundglass opacities in the bilateral lung bases. EKG: SR, heart rate 66 bpm. In ED the patient received NS 30 mL/kilos, aspirin 325 mg, Rocephin 1 g, and was started on heparin drip. ED provider request patient be admitted with the diagnosis of NSTEMI, failure to thrive, pancreatitis, and pneumonia. The patient appeared chronically ill, weak, comfortable, breathing was even, unlabored, in no distress. 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 A nurse-assisted translation was used during the encounter. He presents with a three-week history of generalized weakness, anorexia, body aches, and dysphagia. His only active complaint is lower back pain, following a fall while attempting to get out of bed, associated with tonic-clonic movements of the left upper extremity 2 weeks ago. He reports orthostatic dizziness and a 10 lb weight loss over the past month. He denies chest pain, pressure, dyspnea, cough, or phlegm production. He denies prior myocardial infarction, coronary artery disease, diabetes, cerebrovascular accident, or bleeding disorders. Recent labs are significant for troponin trending upward (3,121 to 3,598), Procalcitonin 2.61, LDH 9.04, elevated liver enzymes (AST 113, ALP 392), and APTT 86.9. He is hemodynamically unstable, with blood pressure persistently at 7080/4050 mmHg despite IV fluid resuscitation. He has been started on norepinephrine. ID consult has been placed for further management. 01.26.2025: Patient evaluated for worsening shortness of breath and inability to tolerate BiPAP. Direct discussion held with Critical Care ENRIQUE Acosta regarding current management. Patient reports persistent dyspnea, anxiety, and discomfort with oxygen delivery devices. Lower back pain post-fall is being managed with Lidocaine patch and morphine. ENRIQUE Acosta confirmed ongoing ICU transfer, infectious disease and neurology consults, and continuation of supportive care. 01.27.2025: Patient was seen and evaluated in room 223. He reports intermittent pain in the right inguinal region at the site of his hernia repair performed 20 days ago. He describes the pain as coming and going, with an intensity of 9/10. A CT abdomen and pelvis has been ordered for further evaluation. Transfer to [facility] for neurosurgical involvement was considered, as patient requires neurosurgical care; however, transfer was declined by [facility]. Plan 01/28/2025: Patient seen bedside in room 223. Case discussed with RN, no overnight events. Patient's blood pressure at 97/59, respiratory rate 20, pulse 117, saturating 95% with15 L nasal cannula. MRI brain shows multiple hemorrhagic and nonhemor rhagic cystic and nodular lesions with perilesional edema within supra and infratentorial brain. CT abdomen and pelvis without contrast shows small bilateral pleural effusions, mild subcutaneous fat stranding suggesting early anasarca. Lab shows severely decreased WBC count at 0.6, hematology consultation requested. Follow-up with Hematology, Infectious Disease, critical Care rec ommendations. REVIEW OF SYSTEMS 12-point ROS reviewed with the patient. All pertinent positives mentioned above. Otherwise negative, noncontributory, non-pertinent. PHYSICAL EXAM GENERAL APPEARANCE: The patient is chronically ill, weak, awake,and alert. NEUROLOGICAL: No sensory deficits. HEENT: Face is symmetric. Pupils are equal and reactive. Extraocular movements are intact. NECK: Supple. CHEST: Normal chest expansion. CARDIOVASCULAR: Regular. S1 and S2 normal. No appreciable rubs, murmurs or gallops. ABDOMEN: Soft, nontender, and nondistended. There is no rebound, voluntary guarding, or rigidity. : Deferred. No [place]. EXTREMITIES: Non-edematous and not cyanotic. No clubbing. Good capillary refill. SKIN: Well healed surgical scar in the right inguinal area Vital Signs (last 8hr) Date Time Temp Pulse Resp B/P (MAP) Pulse Ox O2 Delivery O2 Flow Rate FiO2 01/28/25 16:25 96.4 67 18 139/87 94 Nonrebreathing Mask 15.0 01/28/25 12:20 97.7 83 18 116/77 97 Nasal Cannula 15.0 LABS: Laboratory: Test 01/28/25 17:08 01/28/25 04:15 01/27/25 19:39 01/27/25 03:34 Range/Units Whole Blood Glucose 151 H 70-110 MG/DL White Blood Count 0.6 *L 4.8-10.8 K/uL Red Blood Count 2.76 L 4.50-6.20 MIL/uL Hemoglobin 8.3 L 14.0-18.0 g/dL Hematocrit 24.1 L 42-54 % Mean Corpuscular Volume 87.3 79-99 fL Mean Corpuscular Hemoglobin 30.1 27.0-33.0 pg Mean Corpuscular Hemoglobin Concent 34.4 32.0-36.0 g/dL Red Cell Distribution Width 15.1 11.0-15.5 % Platelet Count 199 130-400 K/uL Mean Platelet Volume 11.3 H 7.5-10.5 fL Immature Granulocyte % (Auto) 5.1 H 0-1 % Neutrophils (%) (Auto) 67.8 40.0-77.0 % Lymphocytes (%) (Auto) 23.7 21.0-51.0 % Monocytes (%) (Auto) 3.4 3.0-13.0 % Eosinophils (%) (Auto) 0.0 0.0-8.0 % Basophils (%) (Auto) 0.0 0.0-5.0 % Neutrophils # (Auto) 0.4 L 1.8-7.7 K/uL Lymphocytes # (Auto) 0.1 L 1.0-4.8 K/uL Monocytes # (Auto) 0.0 L 0.1-1.0 K/uL Eosinophils # (Auto) 0.00 0.00-0.70 K/uL Basophils # (Auto) 0.00 0.00-0.20 K/uL Absolute Immature Granulocyte (auto 0.03 0-1 K/uL Segmented Neutrophils % 73 H 40-70 % Lymphocytes % (Manual) 15 L 22-44 % Monocytes % (Manual) 5 2-9 % Eosinophils % (Manual) 2 1-6 % Myelocytes % 5 H 0-0 % Nucleated Red Blood Cells 0.0 0.0-0.19 % Differential Comment MANUAL DIFFERENTIAL White Cell Morphology Comment See comments Platelet Morphology Comment ADEQUATE Red Blood Cell Morphology See comments Sodium Level 130 L 136-145 mmol/L Potassium Level 4.1 3.5-5.1 mmol/L Chloride Level 103 101-111 mmol/L Carbon Dioxide Level 20 L 21-32 mmol/L Blood Urea Nitrogen 17 7-18 mg/dL Creatinine 0.6 0.5-1.3 mg/dL Glomerular Filtration Rate Calc 118 >90 mL/min Random Glucose 196 H 70-105 mg/dL Total Calcium 7.3 L 8.5-10.1 mg/dL C-Reactive Protein, Quantitative 51.80 H 0.5-3.0 mg/L Procalcitonin 1.34 H 0.05-0.5 ng/mL Vancomycin Level Trough 8.7 #L 10.0-20.0 UG/ML Lactic Acid Level 1.5 0.8-2.5 mmol/L Total Bilirubin 0.4 0.2-1.0 mg/dL Aspartate Amino Transf (AST/SGOT) 69 H 10-37 U/L Alanine Aminotransferase (ALT/SGPT) 33 12-78 U/L Alkaline Phosphatase 356 H 50-136 U/L Total Protein 5.3 L 6.0-8.3 g/dL Albumin 0.9 L 3.5-5.0 g/dL Current Medications Medications (Trade) Dose Ordered Sig/Braulio Route PRN Reason Start Time Stop Time Status Last Admin Dose Admin Acetaminophen (TYLenol 325MG TAB) 650 mg Q6H PRN PO FEVER/MILD PAIN LEVEL 1-3 9/3/25 09:00 02/24/25 08:59 Acetaminophen (TYLenol 650MG SUPPOSITORY) 650 mg Q6H PRN RC FEVER / MILD PAIN 1-3 IF NPO 01/25/25 09:00 02/24/25 08:59 Acetaminophen (acetaMINOPHEN) 1,000 mg Q6H IVPB 01/25/25 11:15 02/24/25 11:14 01/28/25 17:06 1,000 MG Albuterol (DUOneb) 1 UDVIAL [id number] IH 01/26/25 12:00 02/25/25 11:59 01/28/25 07:26 1 UDVIAL Albuterol Sulfate (Proventil 0.083% 2.5mg/3ml) 2.5 mg [id number] PRN IH SHORTNESS OF BREATH 01/25/25 09:00 02/24/25 08:59 Aspirin (Aspirin 81mg Chew Tab) 81 mg DAILY PO 01/25/25 09:00 02/24/25 08:59 01/28/25 10:34 81 MG Atorvastatin Calcium (LIPItor 40MG) 40 mg HS PO 01/25/25 21:00 01/25/25 10:49 DC Azithromycin 250 ml @ 250 mls/hr Q24H IVPB 01/25/25 00:30 01/27/25 14:05 DC 01/26/25 23:51 250 MLS/HR Cefepime HCl (MAXipime 2 gm vial) 2 gm Q12H IVPB 01/25/25 11:30 02/04/25 11:29 01/28/25 13:11 2 GM Ceftriaxone Sodium (ROCEphine 1G INJ) 1 gm Q24H IVPB 01/25/25 09:00 01/25/25 11:28 DC 01/25/25 10:45 1 GM Dexamethasone Sodium Phosphate (dexaMETHasone 4MG/ML 1ML VIAL) 6 mg Q12H IVP 01/26/25 09:30 01/27/25 14:33 DC 01/27/25 08:19 6 MG Dextrose (D50w) 50 ml AD PRN IV HYPOGLYCEMIA PROTOCOL 01/25/25 17:00 02/24/25 16:59 01/26/25 06:19 50 ML Dextrose/Sodium Chloride 1,000 ml @ 75 mls/hr [id number] IV 01/25/25 17:00 01/27/25 13:25 DC 01/27/25 10:04 75 MLS/HR Dextrose/Sodium Chloride 1,000 ml @ 150 mls/hr Q6H40M IV 01/25/25 12:00 01/25/25 16:35 DC 01/25/25 11:53 150 MLS/HR Docusate Sodium (COLace 100MG CAP) 100 mg BID PRN PO c 01/25/25 09:00 02/24/25 08:59 Fluconazole (DiFLUCan 100 mg TAB) 200 mg DAILY PO 01/28/25 09:00 02/27/25 08:59 01/28/25 10:34 200 MG Glucagon (Glucagon 1mg Kit) 1 mg AD PRN IM HYPOGLYCEMIA PROTOCOL 01/25/25 17:00 02/24/25 16:59 Heparin Sodium (Porcine) (HEParin 5,000 UNIT VIAL) *calculation based on ACTUAL B... AD PRN IV HEPARIN PROTOCOL 01/25/25 01:30 02/24/25 01:29 01/25/25 00:33 17 UNIT Heparin Sodium/ Dextrose 250 ml @ 0 mls/hr Q6H IV 01/25/25 01:30 01/25/25 10:45 DC 01/25/25 07:30 8.1 MLS/HR Insulin Human Regular (humuLIN R 100 UNIT/ML 3ML) INSULIN SLIDING SCAL... ACHS SQ 01/25/25 11:30 02/24/25 11:29 01/28/25 06:27 4 UNIT Ipratropium [place] (AtrovENT UD) 0.5 mg [id number] IH 01/25/25 12:00 01/26/25 09:41 DC 01/26/25 05:12 0.5 MG Ketorolac Tromethamine (toRADol) 15 mg Q6H PRN IV MODERATE PAIN (4-6) 01/27/25 13:30 02/01/25 13:29 01/28/25 06:33 15 MG Ketorolac Tromethamine (toRADol) 15 mg Q6H PRN IV MODERATE PAIN (4-6) 01/27/25 13:30 01/27/25 13:13 DC Labetalol HCl (TRANdate 20MG SYG) 10 mg Q2H PRN IV SBP GREATER THAN 160 01/25/25 09:00 02/24/25 08:59 Lactulose (Constulose 20gm/ 30ml Udcup) 20 gm Q6H PRN PO CONSTIPATION 01/25/25 09:00 02/24/25 08:59 Levetiracetam 500 mg/Sodium Chloride 100 ml @ 400 mls/hr Q12H9 IV 01/27/25 21:00 02/21/25 09:00 01/28/25 10:34 400 MLS/HR Magnesium Sulfate 50 ml @ 0 mls/hr PROTOCOL PRN IV mgprotocol 01/25/25 17:00 02/24/25 16:59 Methylprednisolone Sodium Succinate (Solu-medROL 125MG) 50 mg Q8H IVP 01/27/25 14:30 02/26/25 14:29 01/28/25 17:06 50 MG Midodrine (PROAMatine 5 MG TABLET) 10 mg TID PO 01/25/25 09:00 02/24/25 08:59 01/28/25 13:12 10 MG Morphine Sulfate (morPHINE 2MG SYG) 2 mg Q6H PRN IVP SEVERE PAIN (7-10) 01/26/25 14:00 02/02/25 13:59 01/27/25 22:43 2 MG Norepinephrine 250 ml @ 0 mls/hr PROTOCOL IV 01/25/25 15:30 02/24/25 15:29 Nystatin (NYSTatin 219912 UNIT/ML 5ML UDCUP) 5 ml QID PO 01/25/25 13:00 02/01/25 12:59 01/28/25 17:06 5 ML Pharmacy Profile Note (Pharmacy Communication) 1 each ONCE MISC 01/27/25 14:30 01/27/25 14:28 DC Potassium Chloride 100 ml @ 50 mls/hr AD PRN IV POTASSIUM PROTOCOL 01/25/25 17:00 02/24/25 16:59 Potassium Chloride 100 ml @ 100 mls/hr AD PRN IV POTASSIUM PROTOCOL 01/25/25 17:00 02/24/25 16:59 Potassium Chloride (K-Dur/Klor-Con 20meq) 20 meq AD PRN PO POTASSIUM PROTOCOL 01/25/25 17:00 02/24/25 16:59 Potassium Chloride (KCl 10% Elixir 20meq/15ml) 20 meq AD PRN PO POTASSIUM PROTOCOL 01/25/25 17:00 02/24/25 16:59 Sodium Chloride 1,000 ml @ 60 mls/hr [id number] IV 01/27/25 13:30 02/26/25 13:29 01/28/25 06:32 60 MLS/HR Sodium Chloride 1,000 ml @ 75 mls/hr [id number] IV 01/25/25 03:00 01/25/25 11:46 DC 01/25/25 02:50 75 MLS/HR Temazepam (restORIL 15 MG CAP) 15 mg HS PRN PO INSOMNIA/SLEEP 01/25/25 09:00 02/24/25 08:59 01/27/25 19:54 15 MG Trimethoprim/ Sulfamethoxazole 320 mg/Dextrose 500 ml @ 333.333 mls/hr Q8H IV 01/27/25 15:00 01/28/25 17:04 DC 01/27/25 23:34 333.333 MLS/HR Trimethoprim/ Sulfamethoxazole 320 mg/Dextrose 500 ml @ 333.333 mls/hr Q8H IV 01/28/25 18:00 02/07/25 17:59 Vancomycin HCl 100 ml @ 50 mls/hr Q8H IV 01/26/25 21:00 01/27/25 15:09 DC 01/27/25 13:30 50 MLS/HR Vancomycin HCl (Vancomycin 750mg) 750 mg Q8H IVPB 01/25/25 21:00 01/26/25 12:47 DC 01/26/25 12:39 750 MG Vancomycin HCl (Vancomycin Protocol) 1 each AD IV 01/25/25 11:30 01/27/25 14:05 DC DIAGNOSTICS / RADIOLOGY: [ ] [place] [address] [address] IMAGING REPORT Addendum PATIENT: ABEL BHARDWAJ MR#: [id number] : 1975 SEX: M AGE: 49 LOCATION: 2DH ORDER 1130 STATUS: ADM IN REPORT#: [id number] SERVICE 1127 REASON: possible neurocysticercosis ORDERING PHYSICIAN: SOCO GARSIA MD PROCEDURE: BRAIN WO - MR BRAIN WO CON ADDENDUM REPORT ADDENDUM: Results were shared by telephone at 7:31 am on 01/28/25 and acknowledged by CANDY FORMING MACHINE OPERATOR Gabriel Ayala /[place] EXAM: MR Brain With Brain Stem Without IV Contrast CLINICAL HISTORY: Possible neurocysticercosis. TECHNIQUE: Multiplanar multi-sequence MRI of the brain. CONTRAST: None. COMPARISON: None provided. FINDINGS: Suboptimal evaluation due to the motion artifacts. There are multiple T1 and T2 hyperintense cystic and nodular lesions with GRE blooming, peripheral diffusion restriction and a few scattered nodular areas of diffusion restriction within the bilateral cerebral and cerebellar hemispheres, involving the cortical, subcortical, periventricular region, right basal ganglia region, and left paramedian pericallosal region, the largest lesion in the right occipital region measures about 1.7 x 2.1 cm. Perilesional edema in some of the lesions, and some lesions show heterogeneous T2 hypointensities. Mildly effaced right lateral ventricle. No hydrocephalus. No abnormal extra-axial fluid collection is present. The marrow signal within the skull base and calvarium is intact. The paranasal sinuses and mastoid air cells are clear. IMPRESSION: There are multiple hemorrhagic and nonhemorrhagic cystic and nodular lesions with perilesional edema, GRE blooming, peripheral diffusion restriction, and scattered nodular diffusion restriction within the supra and infratentorial brain. The differentials could be metastasis, fungal granulomas, neurocysticercosis, developing brain abscesses, or demyelinating disorder. Recommend a repeat MRI of the brain without and with contrast for an optimal evaluation; the patient can be sedated during the scan to avoid motion artifact. /[place] DICTATED BY: BARRIE HERNANDEZ Jr., MD DATE: 01/28/2533 ELECTRONICALLY SIGNED BY: DATE: EXAM: MR Brain With Brain Stem Without IV Contrast CLINICAL HISTORY: Possible neurocysticercosis. TECHNIQUE: Multiplanar multi-sequence MRI of the brain. CONTRAST: None. COMPARISON: None provided. FINDINGS: Suboptimal evaluation due to the motion artifacts. There are multiple T1 and T2 hyperintense cystic and nodular lesions with GRE blooming, peripheral diffusion restriction and a few scattered nodular areas of diffusion restriction within the bilateral cerebral and cerebellar hemispheres, involving the cortical, subcortical, periventricular region, right basal ganglia region, and left paramedian pericallosal region, the largest lesion in the right occipital region measures about 1.7 x 2.1 cm. Perilesional edema in some of the lesions, and some lesions show heterogeneous T2 hypointensities. Mildly effaced right lateral ventricle. No hydrocephalus. No abnormal extra-axial fluid collection is present. The marrow signal within the skull base and calvarium is intact. The paranasal sinuses and mastoid air cells are clear. IMPRESSION: There are multiple hemorrhagic and nonhemorrhagic cystic and nodular lesions with perilesional edema, GRE blooming, peripheral diffusion restriction, and scattered nodular diffusion restriction within the supra and infratentorial brain. The differentials could be metastasis, fungal granulomas, neurocysticercosis, developing brain abscesses, or demyelinating disorder. Recommend a repeat MRI of the brain without and with contrast for an optimal evaluation; the patient can be sedated during the scan to avoid motion artifact. /[place] DICTATED BY: BARRIE HERNANDEZ Jr., MD DATE: 01/28/25721 ELECTRONICALLY SIGNED BY: BARRIE HERNANDEZ Jr., MD DATE: 01/28/257[address] [place] [address] IMAGING REPORT Signed PATIENT: ABEL BHARDWAJ MR#: [id number] : 1975 SEX: M AGE: 49 LOCATION: 2DH ORDER 3 STATUS: ADM IN REPORT#: [id number] SERVICE 0 REASON: right inguinal pain ( s/p right inguinal hernia repair) ORDERING PHYSICIAN: RAKESH MACHADO MD PROCEDURE: ABD PEL WO - CT ABDOMEN/PELVIS W/O CONTRAST CT ABDOMEN/PELVIS W/O CONTRAST REASON: right inguinal pain ( s/p right inguinal hernia repair) COMPARISON: None. FINDINGS: Lung bases demonstrate bilateral lower lung infiltrate with small bilateral pleural effusion.. The heart and pericardium appears to be normal. There are no focal liver lesions. There are normal-appearing kidneys.. Spleen and pancreas appear unremarkable. The gallbladder is not visualized suggesting is surgically absent.. Bowel loops appear unremarkable. This includes normal appearance of the appendix There is no evidence of free fluid or intraperitoneal air. There are no focal fluid collections. Aorta and retroperitoneum appear normal as do pelvic soft tissue structures. The anterior abdominal wall is intact. Osseous structures appear unremarkable. There is mild subcutaneous fat stranding suggesting of possible anasarca. The right inguinal region demonstrate no abnormality. IMPRESSION: 1. Bilateral lower lung infiltrate with small bilateral pleural effusion.. 2. Mild subcutaneous fat stranding suggesting early anasarca. CT was performed with one or more following dose reduction techniques: automated exposure control, adjustment of the mA and kv according to patient's size, or use of a iterative reconstruction technique. 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 Severe sepsis, POA with shock, Pneumonia, POA * Bilateral pneumonia noted on CT chest 01/24/2025 - Atypical viral pneumonia suspected * Infectious Disease consulted * Broad-spectrum IV antibiotics - Cefepime ( Day 3), trimethoprim sulfamethoxazole (day 2). * procalcitonin is 1.34 on 01.28.2025 * Will continue to monitor vitals, labs, and end-organ perfusion. * Oxygen as needed to keep SpO2 equal to greater than 92. 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 The largest is in the left frontal lobe, associated with significant surrounding edema. The other three are located in the occipital region and right basal ganglia. The differentiation between daniels and white matter is otherwise preserved, as is the appearance of the basal nuclei. * Infectious disease specialist consulted Possible HIV * Positive HIV 1 and 2 antibodies (preliminary) * ordered CD4 cell count - pending results * HIV Genotype / Integrase & Retroviral Genotype Testing ordered to guide antiretroviral therapy and assess for possible resistance mutations Hypotension, responsive to midodrine and fluid bolus * Bp - 97/59 mm Hg on 01.28.2025 at 8am * on Midodrine 10 mg PO TID * IV fluid bolus of 1600 ml of 0.9 NS given * Started on Levophed * titrate to maintain MAP - 65 mmHg. * Blood pressure checks every 4 hours and as needed. * Ordered random serum cortisol Lower back pain, POA * pain due to fall 2 weeks ago * treated with morphine, Tylenol and lidocaine patch * Ct lumbar spine revealed no signs of acute osseous injury s/p recent right inguinal hernia repair 3 weeks ago, POA * Right inguinal surgical scar present * well-healed, no signs of infection. Acute pancreatitis, POA * Patient is npo * CT abdomen 01/24/2025 shows peripancreatic fat stranding. * Discontinued IV heparin * Continue supportive care and IV fluid hydration * Pain control as needed with iv tylenol * Lipase - 435 on 01.24.2025 to 89 on 01.26.2025 NSTEMI, POA * No clinical evidence of acute coronary syndrome. * 2D echocardiogram on 01.26.2025 demonstrated no LV wall motion abnormalities, and LVEF of 58% and no significant valvular pathology * troponin 3828 on 01.26.2025 * Defer statin therapy Anemia with leukopenia, POA * Likely multifactorial (sepsis, nutritional). * Hb- 8.4 , WBC - 1.6 * will trend CBC daily * iron - 32, TIBC- 80 and % Sat - 40 on 01.25.2025 * ordered stool occult Hyponatremia, POA * serum sodium is 131 * Given 3% NS bolus * Strict I&Os. Dysphagia * Possible oral/esophageal candidiasis. * continue nystatin therapy * Monitor oral intake and swallow safety. Frailty/debility/ Failure to thrive/GBW, POA Glucose checks a.c. and HS with insulin regular sliding scale coverage as needed. Reconcile home medications once available. GI and DVT prophylaxis. Patient prognosis is guarded ATTESTATION BY PHYSICIAN I have seen and examined the patient. I reviewed the documentation, medical decision making, and treatment plan as noted by the resident provider above. I agree with the findings and plan of care. Vitaliy Olvera MD, ADIL SHAH QUADRI MD Jan 28, 2025 18:06
--- NOTE | 2025-01-28 19:31 | NUR ---
AMA 1030 SISTER IN LAW HAYDEJEREMY RAZA STATED PATIENTS WISHES WERE TO BE DNR. PATIENT IS ALERT AND ORIENTED I ASKED PATIENT IF THOSE WERE HIS WISHES. PATIENT STATED, "NO, QUIERO TODO" MEANING HE WOULD LIKE EVERYTHING DONE TO SAVE HIS LIFE IF NEEDED. 1438 HAYDE RAZA AND FRIENDS AT BEDSIDE STATED THEY HAD SPOKEN TO THE PATIENT MOTHER AND WANTED HIM TO GO HOME AM. HAYDE CALLED PATIENTS MOTHER CHRISTIANO LEVY VIA VIDEO CALL TO VERIFY. I HAD BRIEN LEON RN VERIFY WITH ME AT BEDSIDE WITH PATIENT AND MOTHER THAT THOSE WERE THEIR WISHES. BOTH STATED YES. FAMILY PENDING TO BRING O2 TANK. 1620 FAMILY BROUGHT A VERY SMALL EMPTY TANK. [facility] WAS [facility]QUEST[facility] IF [facility] COULD PROVIDE AN O2 TANK. I CALLED CASE MANAGEMENT [facility] TO ASK ABOUT THE OXYGEN TANK SINCE PATIENT WAS LEAVING [place]. 1800 OXYGEN TANK WAS NOT ABLE TO OBTAINED THEREFORE HAYDE [facility] [facility] ARRANGED EMS FOR THE PATIENT. 1905 DOUG [facility]UL[facility] (EMS) ARRIVED TO TRANSFER THE PATIENT TO [facility]. FAMILY PACKED AND TOOK ALL BELONGINGS. REPORT GIVEN TO [facility] AND [address] PER REQUEST OF [facility]. TELEPAK REMOVED. AMA FORM SIGNED AND IN CHART. PER FAMILY AT BEDSIDE PATIENT IS BEING TRANSFERRED TO A HOSPITAL.
--- NOTE | 2025-01-29 01:35 | HMCIMG ---
EXAM: CR Chest, single view CLINICAL HISTORY: pp COMPARISON: Prior chest radiograph dated 26 January 2025. FINDINGS: Extensive confluent groundglass opacities in the bilateral lung parenchyma in the upper, mid, and lower zones. Normal cardiac size with bilateral pulmonary congestion. No evidence of pleural effusion or pneumothorax. The cardiomediastinal silhouette is within normal limits. No acute osseous abnormality. IMPRESSION: Extensive confluent groundglass opacities in the bilateral lung parenchyma in the upper, mid, and lower zones. Normal cardiac size with bilateral pulmonary congestion. Probable changes of ARDS. Compared to the prior study, the groundglass opacities in the bilateral lung parenchyma have an interval progression. /[place]
--- NOTE | 2025-01-29 07:51 | DS ---
Discharge Summary Hospital Course Summary: Mr Bhardwaj is a 49-year-old male not pertinent history who is presented with [facility] [place] [place] for evaluation of with anorexia, fever, chills, generalized body weakness. The patient had an Right inguinal hernia three weeks ago and since then he reports he has been having complications. VS: HR 85 bpm, RR 18 bpm, BP 81/56, 99% RA, 97.9 F. Labs: Chemistry: WBC 2.9, RBC 2.71, Hgb 8.1, Hct 24.1, MPV 11.7, Urine: Specific [place] 1.038, Protein 10, Occult Blood Small, UA: Negative Nitrate, Negative Leukocyte Est, UA: RBC 6- 10, WBC 2-5, Coagulation: APTT 40.8, Chest CT: Severe diffuse airspace disease, air bronchogram, and smooth interstitial thickening bilaterally, compatible with pneumonia and pulmonary edema. There is a possibility of atypical viral pneumonia. Clinical correlation and further evaluation, and follow-up are suggested. Abdomen/Pelvis CT: Mild peripancreatic fat stranding. A small amount of fluid with mild fat stranding in the left upper quadrant at the inferior aspect of the spleen. The features concerning for acute interstitial pancreatitis. Recommend serum amylase and lipase evaluation. No other significant abnormality is visualized in the abdomen and pelvis. Groundglass opacities in the bilateral lung bases. EKG: SR, heart rate 66 bpm. In ED the patient received NS 30 mL/kilos, aspirin 325 mg, Rocephin 1 g, and was started on heparin drip. ED provider request patient be admitted with the diagnosis of NSTEMI, failure to thrive, pancreatitis, and pneumonia. The patient appeared chronically ill, weak, comfortable, breathing was even, unlabored, in no distress. 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 A nurse-assisted translation was used during the encounter. He presents with a three-week history of generalized weakness, anorexia, body aches, and dysphagia. His only active complaint is lower back pain, following a fall while attempting to get out of bed, associated with tonic-clonic movements of the left upper extremity 2 weeks ago. He reports orthostatic dizziness and a 10 lb weight loss over the past month. He denies chest pain, pressure, dyspnea, cough, or phlegm production. He denies prior myocardial infarction, coronary artery disease, diabetes, cerebrovascular accident, or bleeding disorders. Recent labs are significant for troponin trending upward (3,121 to 3,598), Procalcitonin 2.61, LDH 9.04, elevated liver enzymes (AST 113, ALP 392), and APTT 86.9. He is hemodynamically unstable, with blood pressure persistently at 7080/4050 mmHg despite IV fluid resuscitation. He has been started on norepinephrine. ID consult has been placed for further management. 01.26.2025: Patient evaluated for worsening shortness of breath and inability to tolerate BiPAP. Direct discussion held with Critical Care ENRIQUE Quesada regarding current management. Patient reports persistent dyspnea, anxiety, and discomfort with oxygen delivery devices. Lower back pain post-fall is being managed with Lidocaine patch and morphine. ENRIQUE Quesada confirmed ongoing ICU transfer, infectious disease and neurology consults, and continuation of supportive care. 01.27.2025: Patient was seen and evaluated in room 223. He reports intermittent pain in the right inguinal region at the site of his hernia repair performed 20 days ago. He describes the pain as coming and going, with an intensity of 9/10. A CT abdomen and pelvis has been ordered for further evaluation. Transfer to [facility] for neurosurgical involvement was considered, as patient requires neurosurgical care; however, transfer was declined by [facility]. Plan 01/28/2025: Patient seen bedside in room 223. Case discussed with RN, no overnight events. Patient's blood pressure at 97/59, respiratory rate 20, pulse 117, saturating 95% with15 L nasal cannula. MRI brain shows multiple hemorrhagic and nonhemorrhagic cystic and nodular lesions with perilesional edema within supra and infratentorial brain. CT abdomen and pelvis without contrast shows small bilateral pleural effusions, mild subcutaneous fat stranding suggesting early anasarca. Lab shows severely decreased WBC count at 0.6, hematology consultation requested. Follow-up with Hematology, Infectious Disease, critical Care recommendations. Patient wanted to see his mother who is in [place] , she couldnt travel here due to immigration issues , patient's family wanted to take patient and leave AMA. we offered a doctor's letter which might be helpful , but they refused and planned to take him back to [place] in an ambulance , informed family that he is on high oxygen support , family and patient understand's the risks. Patient left AMA in an ambulance. Sourcing Specialist(s): oncology , critical care , infectious disease , cardiology Procedure(s): PATIENT: ABEL BHARDWAJ MR#: [id number] : 1975 SEX: M AGE: 49 LOCATION: 2DH ORDER 1022 STATUS: DIS IN REPORT#: [id number] SERVICE 1021 REASON: pp ORDERING PHYSICIAN: LYUDMILA QUESADA PROCEDURE: CXR1VW - CHEST 1VW EXAM: CR Chest, single view CLINICAL HISTORY: pp COMPARISON: Prior chest radiograph dated 26 January 2025. FINDINGS: Extensive confluent groundglass opacities in the bilateral lung parenchyma in the upper, mid, and lower zones. Normal cardiac size with bilateral pulmonary congestion. No evidence of pleural effusion or pneumothorax. The cardiomediastinal silhouette is within normal limits. No acute osseous abnormality. IMPRESSION: Extensive confluent groundglass opacities in the bilateral lung parenchyma in the upper, mid, and lower zones. Normal cardiac size with bilateral pulmonary congestion. Probable changes of ARDS. Compared to the prior study, the groundglass opacities in the bilateral lung parenchyma have an interval progression. /[place] DICTATED BY: BARRIE HERNANDEZ Jr., MD DATE: 01/29/25232 ELECTRONICALLY SIGNED BY: BARRIE HERNANDEZ Jr., MD DATE: 01/29/25232 PATIENT: ABEL BHARDWAJ MR#: [id number] : 1975 SEX: M AGE: 49 LOCATION: 2DH ORDER 3 STATUS: ADM IN REPORT#: [id number] SERVICE 0 REASON: right inguinal pain ( s/p right inguinal hernia repair) ORDERING PHYSICIAN: RAKESH MACHADO MD PROCEDURE: ABD PEL WO - CT ABDOMEN/PELVIS W/O CONTRAST CT ABDOMEN/PELVIS W/O CONTRAST REASON: right inguinal pain ( s/p right inguinal hernia repair) COMPARISON: None. FINDINGS: Lung bases demonstrate bilateral lower lung infiltrate with small bilateral pleural effusion.. The heart and pericardium appears to be normal. There are no focal liver lesions. There are normal-appearing kidneys.. Spleen and pancreas appear unremarkable. The gallbladder is not visualized suggesting is surgically absent.. Bowel loops appear unremarkable. This includes normal appearance of the appendix There is no evidence of free fluid or intraperitoneal air. There are no focal fluid collections. Aorta and retroperitoneum appear normal as do pelvic soft tissue structures. The anterior abdominal wall is intact. Osseous structures appear unremarkable. There is mild subcutaneous fat stranding suggesting of possible anasarca. The right inguinal region demonstrate no abnormality. IMPRESSION: 1. Bilateral lower lung infiltrate with small bilateral pleural effusion.. 2. Mild subcutaneous fat stranding suggesting early anasarca. CT was performed with one or more following dose reduction techniques: automated exposure control, adjustment of the mA and kv according to patient's size, or use of a iterative reconstruction technique. DICTATED BY: MARISOL LEONE MD DATE: 01/28/25 113 ELECTRONICALLY SIGNED BY: MARISOL LEONE MD DATE: 01/28/25 1140 PATIENT: ABEL BHARDWAJ MR#: [id number] : 1975 SEX: M AGE: 49 LOCATION: [facility] ORDER 1130 STATUS: ADM IN REPORT#: [id number] SERVICE 1127 REASON: possible neurocysticercosis ORDERING PHYSICIAN: SOCO GARSIA MD PROCEDURE: BRAIN WO - MR BRAIN WO CON ADDENDUM REPORT ADDENDUM: Results were shared by telephone at 7:31 am on 01/28/25 and acknowledged by RELOCATION COMMISSIONER Gabriel Ayala /[place] EXAM: MR Brain With Brain Stem Without IV Contrast CLINICAL HISTORY: Possible neurocysticercosis. TECHNIQUE: Multiplanar multi-sequence MRI of the brain. CONTRAST: None. COMPARISON: None provided. FINDINGS: Suboptimal evaluation due to the motion artifacts. There are multiple T1 and T2 hyperintense cystic and nodular lesions with GRE blooming, peripheral diffusion restriction and a few scattered nodular areas of diffusion restriction within the bilateral cerebral and cerebellar hemispheres, involving the cortical, subcortical, periventricular region, right basal ganglia region, and left paramedian pericallosal region, the largest lesion in the right occipital region measures about 1.7 x 2.1 cm. Perilesional edema in some of the lesions, and some lesions show heterogeneous T2 hypointensities. Mildly effaced right lateral ventricle. No hydrocephalus. No abnormal extra-axial fluid collection is present. The marrow signal within the skull base and calvarium is intact. The paranasal sinuses and mastoid air cells are clear. IMPRESSION: There are multiple hemorrhagic and nonhemorrhagic cystic and nodular lesions with perilesional edema, GRE blooming, peripheral diffusion restriction, and scattered nodular diffusion restriction within the supra and infratentorial brain. The differentials could be metastasis, fungal granulomas, neurocysticercosis, developing brain abscesses, or demyelinating disorder. Recommend a repeat MRI of the brain without and with contrast for an optimal evaluation; the patient can be sedated during the scan to avoid motion artifact. /[place] DICTATED BY: BARRIE HERNANDEZ Jr., MD DATE: 01/28/25732 ELECTRONICALLY SIGNED BY: DATE: EXAM: MR Brain With Brain Stem Without IV Contrast CLINICAL HISTORY: Possible neurocysticercosis. TECHNIQUE: Multiplanar multi-sequence MRI of the brain. CONTRAST: None. COMPARISON: None provided. FINDINGS: Suboptimal evaluation due to the motion artifacts. There are multiple T1 and T2 hyperintense cystic and nodular lesions with GRE blooming, peripheral diffusion restriction and a few scattered nodular areas of diffusion restriction within the bilateral cerebral and cerebellar hemispheres, involving the cortical, subcortical, periventricular region, right basal ganglia region, and left paramedian pericallosal region, the largest lesion in the right occipital region measures about 1.7 x 2.1 cm. Perilesional edema in some of the lesions, and some lesions show heterogeneous T2 hypointensities. Mildly effaced right lateral ventricle. No hydrocephalus. No abnormal extra-axial fluid collection is present. The marrow signal within the skull base and calvarium is intact. The paranasal sinuses and mastoid air cells are clear. IMPRESSION: There are multiple hemorrhagic and nonhemorrhagic cystic and nodular lesions with perilesional edema, GRE blooming, peripheral diffusion restriction, and scattered nodular diffusion restriction within the supra and infratentorial brain. The differentials could be metastasis, fungal granulomas, neurocysticercosis, developing brain abscesses, or demyelinating disorder. Recommend a repeat MRI of the brain without and with contrast for an optimal evaluation; the patient can be sedated during the scan to avoid motion artifact. /[place] DICTATED BY: BARRIE HERNANDEZ Jr., MD DATE: 01/28/25721 ELECTRONICALLY SIGNED BY: BARRIE HERNANDEZ Jr., MD DATE: 01/28/25721 PATIENT: ABEL BHARDWAJ MR#: [id number] : 1975 SEX: M AGE: 49 LOCATION: [facility] ORDER 6 STATUS: ADM IN REPORT#: [id number] SERVICE REASON: Elevated trop ORDERING PHYSICIAN: AGNES MAYO PROCEDURE: ECHO CMP - ECHO 2-D COMPLETE APPROVED REPORT EXAM: Two-dimensional and M-mode echocardiogram with Doppler and color Doppler. INDICATION ICD: elevated troponin 2D Dimensions RVDd 3.7 cm LVEF(%) 62.2 (>50%) LVED Vol(simp.) 122.5 mL IVSd 0.7 (0.7-1.1cm) FS(%) 34 % LVES Vol(simp.) 51.3 mL LVDd 4.9 (3.8-5.6cm) LA (2D) 2.8 (1.6-4.0cm) LVEF(%, simp.) 58 % PWd 0.9 (0.7-1.1cm) Ao Root(2D) 3.2 (2.0-3.7cm) LA ESV INDEX (BP) 29.45 mL/m2 LVDs 3.3 (2.5-4.0cm) LVOT diam 2.2 (1.8-2.4cm) IVC diam 1.2 cm Aortic Valve AoV Vmax 1.6 m/s Ao Peak GR 9.7 mmHg LVOT Vmax 1.1 m/s AoV VTI 0.3 m Ao Mean GR 5.0 mmHg LVOT VTI 0.22 m CHICO (VMAX) 2.53 cm2 CHICO (VTI) 2.6 cm2 Mitral Valve MV E Vmax 57.6 cm/s DECEL Time 310 ms MV A Vmax 35.7 cm/s P 1/2 T 87 ms E/A ratio 1.6 MVA (PHT) 2.5 cm2 TDI E/E' Medial 6.9 E/E' Lateral 6.0 Medial E' Peak V 8.30 cm/s Lateral E' Peak V 9.53 cm/s Pulmonary Valve PV Vmax 1.0 m/s PV VTI 0.23 m PV Mean GR 2.4 mmHg PV Peak GR 3.8 mmHg Tricuspid Valve TR Vmax 2.5 m/s RVSP 22.5 mmHg TR Peak GR 24.2 mmHg Left Ventricle The left ventricle is normal size. There is normal LV segmental wall motion. There is normal left ventricular wall thickness. LVEF is 58%. The left ventricular diastolic function is normal. Right Ventricle The right ventricle is normal size. The right ventricular systolic function is normal. Atria The left atrium size is normal. The right atrium size is normal. Chiari network is noted in the right atrium. Aortic Valve The aortic valve is normal in structure. No aortic regurgitation is present. There is no aortic valvular stenosis. Mitral Valve The mitral valve is normal in structure. There is no mitral valve regurgitation noted. There is no mitral valve stenosis. Tricuspid Valve The tricuspid valve is normal in structure. There is trace tricuspid valve regurgitation noted. Pulmonic Valve The pulmonary valve is normal in structure. There is no pulmonic valvular regurgitation. Great Vessels The aortic root is normal in size. The IVC is normal in size and collapses >50% with inspiration. Pericardium There is no pericardial effusion. DICTATED BY: FERCHO IRWIN MD DATE: 01/26/25910 ELECTRONICALLY SIGNED BY: FERCHO IRWIN MD DATE: 01/26/252052 PATIENT: ABEL BHARDWAJ MR#: [id number] : 1975 SEX: M AGE: 49 LOCATION: 2DH ORDER 0006 STATUS: ADM IN REPORT#: [id number] SERVICE 0600 REASON: shortness of breath ORDERING PHYSICIAN: GIANNI COHEN [employer] INFORMATICS INSTRUCTOR PROCEDURE: CXR1VW - CHEST 1VW EXAM: CR Chest, 1 views. CLINICAL HISTORY: shortness of breath. COMPARISON: CR - CHEST 1VW FINDINGS: Diffuse marked consolidation is seen in both lung hernandez involving upper mid and lower zones and bilateral perihilar regions. As compared to previous scan the area of consolidation is increased. No pleural effusion or pneumothorax. The cardiomediastinal silhouette is within normal limits. No acute osseous abnormality. IMPRESSION: Diffuse marked consolidation is seen in both lung hernandez involving upper mid and lower zones and bilateral perihilar regions. As compared to previous scan the area of consolidation is increased.. /[place] DICTATED BY: MARISSA JENNINGS MD DATE: 01/27/25722 ELECTRONICALLY SIGNED BY: MARISSA JENNINGS MD DATE: 01/27/25722 PATIENT: ABEL BHARDWAJ MR#: [id number] : 1975 SEX: M AGE: 49 LOCATION: 2DH ORDER 1128 STATUS: ADM IN REPORT#: [id number] SERVICE 1123 REASON: lower back pain after fall ORDERING PHYSICIAN: BERNARD SINGH MD PROCEDURE: L SPIN WO - CT LUMBAR SPINE W/O CONTRAST EXAM: CT Lumbar Spine Without IV contrast. CLINICAL HISTORY: lower back pain after fall TECHNIQUE: Axial computed tomography images of the lumbar spine without intravenous contrast. Sagittal and coronal reformatted images were generated. COMPARISON: None provided. FINDINGS: ALIGNMENT: Bony alignment is anatomic. DISCS/DEGENERATIVE CHANGES: Anterior osteophytes and vacuum phenomena at facet joints of the L4-5 vertebrae. BONES: No acute fracture or aggressive appearing osseous lesion. SOFT TISSUES: The soft tissues are unremarkable. IMPRESSION: 1. No acute osseous injury. /[place] DICTATED BY: BARRIE HERNANDEZ Jr., MD DATE: 01/26/251510 ELECTRONICALLY SIGNED BY: BARRIE HERNANDEZ Jr., MD DATE: 01/26/251510 PATIENT: ABEL BHARDWAJ MR#: [id number] : 1975 SEX: M AGE: 49 [facility] STATUS: ADM IN REPORT#: [id number] SERVICE 0853 REASON: evaluate for chf ORDERING PHYSICIAN: KEON ALY PROCEDURE: CXR1VW - CHEST 1VW EXAM: CR Chest, 1 View. CLINICAL HISTORY: evaluate for chf COMPARISON: Radiograph dated January 24, 2025 FINDINGS: Redemonstrated diffuse airspace disease throughout both lungs that may reflect pulmonary edema. No pleural effusion or pneumothorax. Heart size is within normal limits. Mild central pulmonary vascular congestion. IMPRESSION: 1. Diffuse airspace disease throughout both lungs, possibly representing pulmonary edema, with mild central pulmonary vascular congestion. /[place] DICTATED BY: BARRIE HERNANDEZ Jr., MD DATE: 01/25/251152 ELECTRONICALLY SIGNED BY: BARRIE HERNANDEZ Jr., MD DATE: 01/25/25 115 PATIENT: ABEL BHARDWAJ MR#: [id number] : 1975 SEX: M AGE: 49 LOCATION: ED ORDER 10 STATUS: REG ER REPORT#: [id number] SERVICE 09 REASON: sob ORDERING PHYSICIAN: JYOTSNA HERNANDEZ MD PROCEDURE: CHEST WO - CT CHEST W/O CONTRAST ADDENDUM REPORT ADDENDUM: Results were shared by telephone at 1:20 am on 01-25-25 and acknowledged by Jyotsna Santana /[place] EXAM: CT Chest without IV contrast CLINICAL HISTORY: Shortness of breath. TECHNIQUE: Thin-section axial CT through the thorax without intravenous contrast. Coronal, sagittal, and MIP reformation were generated on the same workstation. CT scan done according to ALARA (As Low as Reasonably Achievable). CONTRAST USED: None. COMPARISON: None provided. FINDINGS: Severe diffuse airspace disease, air bronchogram, and smooth interstitial thickening bilaterally, compatible with pneumonia and pulmonary edema. No pleural effusions. No pneumothorax. No pericardial effusion. The heart size is within normal limits. No axillary, supraclavicular, or mediastinal lymphadenopathy. No focal thyroid abnormality. Limited views of the upper abdomen demonstrate no abnormality. No acute or suspicious osseous abnormality. IMPRESSION: Severe diffuse airspace disease, air bronchogram, and smooth interstitial thickening bilaterally, compatible with pneumonia and pulmonary edema. There is a possibility of atypical viral pneumonia. Clinical correlation and further evaluation, and follow-up are suggested. /[place] DICTATED BY: BARRIE HERNANDEZ Jr., MD DATE: 01/25/25121 ELECTRONICALLY SIGNED BY: DATE: EXAM: CT Chest without IV contrast CLINICAL HISTORY: Shortness of breath. TECHNIQUE: Thin-section axial CT through the thorax without intravenous contrast. Coronal, sagittal, and MIP reformation were generated on the same workstation. CT scan done according to ALARA (As Low as Reasonably Achievable). CONTRAST USED: None. COMPARISON: None provided. FINDINGS: Severe diffuse airspace disease, air bronchogram, and smooth interstitial thickening bilaterally, compatible with pneumonia and pulmonary edema. No pleural effusions. No pneumothorax. No pericardial effusion. The heart size is within normal limits. No axillary, supraclavicular, or mediastinal lymphadenopathy. No focal thyroid abnormality. Limited views of the upper abdomen demonstrate no abnormality. No acute or suspicious osseous abnormality. IMPRESSION: Severe diffuse airspace disease, air bronchogram, and smooth interstitial thickening bilaterally, compatible with pneumonia and pulmonary edema. There is a possibility of atypical viral pneumonia. Clinical correlation and further evaluation, and follow-up are suggested. /[place] DICTATED BY: BARRIE HERNANDEZ Jr., MD DATE: 01/25/25115 ELECTRONICALLY SIGNED BY: BARRIE HERNANDEZ Jr., MD DATE: 01/25/25115 PATIENT: ABEL BHARDWAJ MR#: [id number] : 1975 SEX: M AGE: 49 LOCATION: [facility] ORDER 45 STATUS: REG ER REPORT#: [id number] SERVICE 44 REASON: abd pain , gi bleed ORDERING PHYSICIAN: JYOTSNA HERNANDEZ MD PROCEDURE: ABD PEL W - CT ABDOMEN/PELVIS W/CONTRAST EXAM: CT Abdomen and Pelvis with IV contrast CLINICAL HISTORY: Abdominal pain. GI bleed. TECHNIQUE: Thin collimated axial CT images of the abdomen and pelvis were obtained, with sagittal and coronal reformatted images also submitted. A CT scan is done according to ALARA (As Low As Reasonably Achievable). CONTRAST: Omnipaque 350 COMPARISON: None. FINDINGS: Diffuse groundglass opacities in the bilateral lung bases. Mild peripancreatic fatty stranding. A small amount of fluid with mild fat stranding in the left upper quadrant at the inferior aspect of the spleen. No focal abnormality within the liver, spleen, adrenals, or kidneys. The gallbladder is not visualized and is likely surgically removed. There is no obvious bowel wall thickening. Bowel loops are normal in caliber without evidence of obstruction or ileus. The appendix is normal. There is no abnormality within the urinary bladder. Unremarkable reproductive organs. Abdominal and pelvic vessels are patent. No lymphadenopathy. There is no acute osseous abnormality. Mild lumbar spondylosis. IMPRESSIONS: Mild peripancreatic fat stranding. A small amount of fluid with mild fat stranding in the left upper quadrant at the inferior aspect of the spleen. The features concerning for acute interstitial pancreatitis. Recommend serum amylase and lipase evaluation. No other significant abnormality is visualized in the abdomen and pelvis. Groundglass opacities in the bilateral lung bases. 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 I reviewed the documentation, medical decision making, and treatment plan as noted by the resident provider above. I agree with the findings and plan of care. Vitaliy Olvera MD, KEERTI K MD Jan 29, 2025 07:51
== END 2025-01-28 19:05 | disposition left against medical advice (07) | DRG 974 ==
LOC: EDH 18:19 → EDHIP 18:20 → 2DH 01-25 14:43
PROVIDERS: ADMIT Internal Medicine; ATTEND Internal Medicine
PROC: 5A09357 Assistance with Respiratory Ventilation, Less than 24 Consecutive Hours, Continuous Positive Airway Pressure (ICD-10-PCS; principal; 2025-01-26)
DX: A41.9 Sepsis, unspecified organism (principal); I21.A1 Myocardial infarction type 2; B20 Human immunodeficiency virus [HIV] disease; K85.90 Acute pancreatitis without necrosis or infection, unspecified; J96.01 Acute respiratory failure with hypoxia; R65.21 Severe sepsis with septic shock; E87.1 Hypo-osmolality and hyponatremia; R57.9 Shock, unspecified; J18.9 Pneumonia, unspecified organism; K40.90 Unilateral inguinal hernia, without obstruction or gangrene, not specified as recurrent; F41.9 Anxiety disorder, unspecified; B37.0 Candidal stomatitis; Z53.29 Procedure and treatment not carried out because of patient's decision for other reasons; Z79.82 Long term (current) use of aspirin; Z79.899 Other long term (current) drug therapy; Z90.49 Acquired absence of other specified parts of digestive tract
CPT/HCPCS: 36415; 36600; 70551; 71045; 71250; 72131; 74176; 74177; 80048; 80053; 80061; 80074; 80202; 81001; 82533; 82550; 82803; 82947; 82948; 83036; 83540; 83550; 83605; 83615; 83690; 83735; 83880; 84100; 84145; 84443; 84484; 85025; 85027; 85610; 85730; 86140; 86359; 86361; 86592; 86701; 86777; 86778; 86812; 87040; 87086; 87186; 87283; 87389; 87390; 87491; 87536; 87591; 87635; 87804; 87880; 87900; 87901; 93005; 93306; 94640; 94660; 94664; 99285; G0378; J0456; J0692; J0696; J1100; J1644; J1815; J1885; J1953; J2270; J2919; J3373; J3490; J7042; J7060; J7070; Q9967; J3370